=== PATIENT | male | born 1980 | race African-American/Black ===

== ENCOUNTER 2024-05-03 08:40 | Outpatient (AMB) | payer BC, SELFPAY ==
--- NOTE | 2024-05-03 08:41 | MHC.PC.OV ---
Vital Signs 05/03/24 08:56 Height 5 ft 7 in Weight 245 lb BMI 38.4 BP 114/71 Blood Pressure Location Rt brachial Position Sitting Respiration 16 Pulse 79 Pulse Source Pulse Oximeter Temp 97.8 F Temp Source Oral Pulse Oximetry (%) 98 Oxygen Delivery Method Room Air Intake Visit Reasons: Kidney Failure Intake Note: patient here for new patient visit/ Kidney failure Transmission Engineer Required: No Allergies BRITTANIE Inhibitors Allergy (Mild, Verified 05/03/24 08:47) lip swelling Tobacco use date assessed: 05/03/24 Dental Screening Dental Screen Date: 05/03/24 Did you have a dental visit in the last 12 months?: No Did you have a dental problem in the last 6 months where you did not have access to dental care?: No Was dental information given to patient?: Yes HPI HPI Comments History of Present Illness Details 43-year-old male presents to establish care. Prior PCP? - [place], [place] Last office visit/CPE/labs - About 10 years ago Acute issue(s) - HTN: He is on carvedilol 25 mg twice daily and nifedipine 90 mg daily. Followed by [facility]. 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 He receives hemodialysis Mondays, Wednesdays, and Fridays. He is on cinacalcet 120 mg every night, sodium polystyrene sulfate 30 mg on Sundays and Wednesdays, velphoro 500 mg tablet (1 tab in the morning and noon and 2 tabs in the evening), and tacrolimus 1 mg twice daily. - Nausea: Is on Zofran 4 mg daily Past Medical History - HTN - Nausea - Focal segmental glomerulosclerosis bilaterally - Chronic left lower leg edema secondary to kidney disease - Shingles Surgical History - Kidney transplant x2 (both kidneys) - Tonsillectomy Family History - Mom: HTN - Dad: Cardiovascular disease - PGM: Cardiovascular disease Social History - Nonsmoker. Does not vape. Does not drink alcohol. Smokes cannabis preroll daily - Has been making healthy dietary choices. Exercises routinely. Generally sleep well Health maintenance - Last eye exam was 8-9 years ago. Referred to ophthalmology for routine eye care - Last dental visit was 8-9 years ago; encouraged to schedule an appointment with his dentist for routine dental care. - Last tetanus vaccine was more than 10 years ago; declined vaccination - He has never had the shingles vaccines. He has history of shingles. Encouraged to get vaccinated for shingles; may get the vaccine from the local pharmacy - He notes that he is up-to-date on the influenza vaccine Specialists Dr. Reina, [facility] Care: Hemodialysis F [facility] Medical History (Updated 05/03/24 @ 09:55 by Nerissa Sparks CNP) Shingles FSGS (focal segmental glomerulosclerosis) Surgical History (Updated 05/03/24 @ 09:03 by Daniella Galicia MA) History of tonsillectomy Kidney transplant recipient Family History (Updated 05/03/24 @ 09:02 by Daniella Galicia MA) Mother High blood pressure Father Cardiovascular disease Paternal Grandmother Cardiovascular disease Social History (Updated 05/03/24 @ 09:03 by Daniella Galicia MA) Housing: Apartment Patient Tobacco Use Status: Never used Tobacco e-Cigarette/Vaping Use: Currently Using Second Hand Smoke Exposure: No Substance Use Type: Marijuana service: No Current occupational status: employed Current occupation: education Current occupational exposures/hazards: No Cognitive needs: No Hearing needs: No Vision needs: No Questionnaire PHQ-9 Over the last 2 weeks, how often have you been bothered by any of the following problems? 1. Little interest or pleasure in doing things: not at all 2. Feeling down, depressed, or hopeless: not at all 3. Trouble falling or staying asleep, or sleeping too much: not at all 4. Feeling tired or having little energy: several days 5. Poor appetite or overeating: not at all 6. Feeling bad about yourself - or that you are a failure or have let yourself or your family down: not at all 7. Trouble concentrating on things, such as reading the newspaper or watching television: not at all 8. Moving or speaking so slowly that other people could have noticed. Or the opposite - being so fidgety or restless that you have been moving around a lot more than usual: not at all 9. Thoughts that you would be better off or of hurting yourself in some way: not at all Total score: 1 Depression Screening Interpretation: Negative Depression Screening Done: Yes 00775 - PHQ-9 Billing: Yes Source: Developed by Drs. Markie Corona, Claribel Valentin, Renato Tenorio and colleagues, with an educational michelle from [employer]. Thrive Questionnaire Date Thrive assessed: 05/03/24 I am a: Patient What is your living situation today?: I have a steady place to live Within the past 12 months, did the food you bought not last and you didn't have the money to get more?: Never true Within the past 12 months, did you worry whether your food would run out before you got money to buy more?: Never true Do you have trouble paying for medicines?: No Do you have trouble getting transportation to medical appointments?: No Do you have trouble paying your heating and electricity bill?: No Do you have trouble taking care of your child, family member or friend?: No Do you have trouble with day-to-day activities such as bathing, preparing meals, shopping, managing finances, etc.?: No Are you currently unemployed and looking for a job?: No Are you interested in more education?: Yes Please select the resources that you would like help with: None Currently or been in a relationship where the following occur: No concerns reported THRIVE Score: 0 AUDIT C Alcohol Use Questionnaire (AUDIT-C) 1. How often do you have a drink containing alcohol?: Never Total Score: 0 KHANH-7 AMB Questionnaire KHANH-7 Date KHANH - 7 assessed: 05/03/24 Feeling nervous, anxious, or on edge: 0 = Not at all Not being able to stop or control worryin = Not at all Worrying too much about different things: 0 = Not at all Trouble relaxin = Not at all Being so restless that it is hard to sit still: 0 = Not at all Becoming easily annoyed or irritable: 0 = Not at all Feeling afraid as if something awful might happen: 0 = Not at all Total KHANH-7 score (0-4 normal; 5-9 mild; 10-14 moderate; 15-21 severe): 0 Source: Developed by Drs. Markie Corona, Claribel Valentin, Renato Tenorio and colleagues, with an educational michelle from [employer]. KHANH-7 Assessment Billing KHANH-7 Assessment Tool: KHANH-7 Assessment 66063 Review of Systems Const Details: Denies chills, Denies fatigue, Denies fever(s), Denies headache(s) and Denies weakness HEENT Denies change in vision, Denies dizziness, Denies headache(s), Denies hearing loss, Denies nasal congestion, Denies sinus pain, Denies sinus pressure and Denies sore throat Card Denies chest pain, Denies lightheadedness, Denies dyspnea and Denies other (palpitations) Resp Denies cough, Denies dyspnea and Denies wheezing GI Denies abdominal pain, Denies melena, Denies hematochezia, Denies change in bowel habits, Denies dyspepsia and Denies nausea Denies hematuria and Denies dysuria Musc Reports left lower leg edema, Denies abnormal gait, Denies myalgias, Denies arthralgias, Denies numbness and Denies tingling Skin/Breast Denies rash, Denies unusual bruising and Denies wounds Neuro Denies abnormal gait, Denies dizziness, Denies headache(s), Denies memory loss, Denies numbness, Denies Sensory deficit (Neuro), Denies tingling and Denies weakness Psych Denies anxiety, Denies depression and Denies memory loss Endo Denies cold intolerance, Denies fatigue, Denies heat intolerance, Denies polydipsia and Denies polyuria Chadd/Lymph Denies easy bleeding and Denies easy bruising Aller/Immun Denies wheezing Physical exam (Primary Care) Vital Signs: Last Vital Signs Temp 97.8 F 05/03/24 08:56 Pulse 79 05/03/24 08:56 Resp 16 05/03/24 08:56 BP 114/71 05/03/24 08:56 Pulse Ox 98 05/03/24 08:56 Oxygen Delivery Method Room Air 05/03/24 08:56 BMI result Body Mass Index 38.4 Tobacco/Smoking Status: Tobacco use Status Tobacco use date assessed 05/03/24 05/03/24 08:55 Patient Tobacco Use Status Never used Tobacco 05/03/24 08:55 e-Cigarette/Vaping Use Currently Using 05/03/24 08:55 PHQ-9: PHQ-9 Score PHQ-9: Total score 1 05/03/24 12:00 Depression Screening Interpretation: Negative Thrive Assessment: Date of Thrive Assessment Date Thrive assessed 05/03/24 05/03/24 08:44 Currently or been in a relationship where the following occur: No concerns reported Const Other: General: no acute distress, well developed, alert and awake Nutritional Appearance: well nourished Orientation/consciousness: patient oriented x3 [facility] Head: Yes normocephalic and Yes atraumatic Ears: hearing grossly normal bilaterally and TM's normal bilaterally General nose exam: Normal external nose present and Normal nares present Mouth: Normal oral and palatal mucosa present and moist mucous membranes Teeth and gingiva: dentition normal Throat: Yes oropharynx normal Eyes Pupils: Equal, round and reactive pupils present and Pupil accommodation reflex normal EOM: EOMs intact bilaterally Neck Neck: Yes normal visual inspection, Yes no lymphadenopathy and Yes trachea midline Thyroid: Thyroid normal Carotids: no bruits Lymphatic: no lymphadenopathy noted Chest Chest palpation & inspection: normal inspection of the chest Resp Effort & Inspection: normal respiratory effort Auscultation: clear to auscultation bilaterally Cardio Rate: regular rate Rhythm: regular rhythm Heart sounds: S1 normal heart sound present, S2 normal heart sound present, no gallops, no murmurs and no rubs Bruits: no abdominal aortic bruits and no carotid bruits GI Palpation (GI): No Abdominal aortic bruit present, Soft to palpation, nontender, No hepatosplenomegaly present and No Rebound tenderness present Auscultation: normal bowel sounds General: Yes no CVA tenderness Back/Spine/Pelvis Back: no CVA tenderness Cervical Spine: cervical ROM normal and No Cervical spine tenderness Thoracic/Lumbar Spine: thoraco-lumbar ROM normal, No pain with thoraco-lumbar ROM, No thoracic spinal tenderness and No lumbar spinal tenderness Skin General: warm and dry. Normal skin color. Normal skin turgor Lesions: no lesions Rashes: no rashes Trauma: no lacerations or abrasions Wounds: no wounds Nails: normal Neuro General: patient oriented x3, gait normal and CN's II-XI intact bilaterally Cranial nerves: Yes Equal, round and reactive pupils present Cognition (Neuro): normal cognition Gait exam (Neuro): Normal gait present Motor exam (neuro): 5/5 motor strength present throughout Sensory Exam: No Sensory deficit (Neuro) Deep tendon reflexes (DTR's): Right patellar reflex intensity grade: 2+ and Left patellar reflex intensity grade: 2+ Extrem General: Yes normal to inspection, No calf tenderness. Moderate nonpitting edema to left leg, skin is dry, warm, intact Psych Appearance: grossly normal Affect: normal affect Attitude: cooperative Thought process: Normal thought process present Coding Level of Care Code New Pt Level 3 (88594) New Pt Prev Care 40-64y(35159) Diagnoses Normal physical examination, routine Z00.00 FSGS (focal segmental glomerulosclerosis) N05.1 Hypertension I10 Eye exam, routine Z01.00 Vaccine counseling Z71.85 Obesity (BMI 30-39.9) E66.9 Edema of left lower leg R60.0 Laboratory tests ordered as part of a complete physical exam (CPE) Z00.00 Additional Codes KHANH-7 Assessment Billing - KHANH-7 Assessment Tool: KHANH-7 Assessment 65116 ([id number]) PHQ-9 - 91540 - PHQ-9 Billing: Yes ([id number]) Assessment & Plan Assessment & Plan (1) Normal physical examination, routine: Code(s): Z00.00 - Encounter for general adult medical examination without abnormal findings Category: Medical Plan: No significant functional limitation noted. Advised to perform lab work and follow-up for telehealth visit in 2-3 weeks. Return sooner with symptoms or concerns. Verbalized understanding and agreed with treatment plan. (2) FSGS (focal segmental glomerulosclerosis): Code(s): N05.1 - Unspecified nephritic syndrome with focal and segmental glomerular lesions Category: Medical Plan: History since 12 years old. 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 He receives hemodialysis Mondays, Wednesdays, and Fridays. He is on cinacalcet 120 mg every night, sodium polystyrene sulfate 30 mg on Sundays and Wednesdays, velphoro 500 mg tablet (1 tab in the morning and noon and 2 tabs in the evening), and tacrolimus 1 mg twice daily. Continue current treatment regimen. Verbalized understanding and agreed with the plan. (3) Hypertension: Code(s): I10 - Essential (primary) hypertension Category: Medical Plan: He is on carvedilol 25 mg twice daily and nifedipine 90 mg daily. Followed by [facility]. Continue current treatment regimen. (4) Eye exam, routine: Code(s): Z01.00 - Encounter for examination of eyes and vision without abnormal findings Category: Medical Plan: Last eye exam was 8-9 years ago. Referred to ophthalmology for routine eye care. (5) Vaccine counseling: Code(s): Z71.85 - Encounter for immunization safety counseling Category: Medical Plan: He has never had the shingles vaccines. He has history of shingles. Encouraged to get vaccinated for shingles; may get the vaccine from the local pharmacy. Verbalized understanding and agreed with treatment plan. (6) Obesity (BMI 30-39.9): Code(s): E66.9 - Obesity, unspecified Category: Medical Plan: He currently weighs 245 lb, BMI is 38.4. He has been making healthy lifestyle changes. Declines referral to dietitian/associate professor of kinesiology or weight management clinic at this time and notes he will continue to make lifestyle changes. Healthy diet and routine exercise encouraged. Follow-up as needed. Verbalized understanding and agreed with the plan. (7) Edema of left lower leg: Code(s): R60.0 - Localized edema Category: Medical Plan: Moderate nonpitting edema to left leg, skin is dry, warm, intact. Likely secondary to kidney disease. Continue dialysis as planned. Elevate left lower extremity to reduce edema. Follow-up with symptoms or concerns. Verbalized understanding and agreed with the treatment plan. (8) Laboratory tests ordered as part of a complete physical exam (CPE): Code(s): Z00.00 - Encounter for general adult medical examination without abnormal findings Category: Medical Plan: Fasting labs ordered as part of a complete physical exam. Advised to fast for at least 10 hours before getting labs drawn. May drink water Verbalized understanding and agreed with treatment plan. Orders: Orders Microalbumin, Random (w Creat) Today Z00.00 - Encounter for general adult medical examination without abnormal findings PSA, Ultra Sensitive Today Z00.00 - Encounter for general adult medical examination without abnormal findings TSH reflex Free T4 Today Z00.00 - Encounter for general adult medical examination without abnormal findings UA CC w/rflx Micro + Cult Today Z00.00 - Encounter for general adult medical examination without abnormal findings Vitamin D 25-OH Total Today Z00.00 - Encounter for general adult medical examination without abnormal findings Complete Blood Count Auto Diff Today Z00.00 - Encounter for general adult medical examination without abnormal findings Comprehensive Narberth. Panel Fast Today Z00.00 - Encounter for general adult medical examination without abnormal findings Lipid Panel Today Z00.00 - Encounter for general adult medical examination without abnormal findings Referrals Ophthalmology Referral Z01.00 - Encounter for examination of eyes and vision without abnormal findings
[2024-05-03 08:56] VITALS: BP 114/71; PULSE 79; RESP 16; TEMP 36.6; O2SAT 98; BMI 38.4
--- OUTSIDE RECORDS SUMMARY | 2024-05-03 08:59 | XMS_ITS | Encounter Summary ---
Author Organization [facility], Address [address] [place] [address] Phone Care Team Providers Care Car Checker Name Role Phone Ly Schultz DO Primary Care Pro vider Encounter Details Date Type Department Care Team (Late st Contact Info) Description 01/24/2022 Documentation Only [facility], [address] [place] [address] Yvonne Millard [address] [place] [address] Social History Tobacco Use Types Packs/Day Years Used Date Smoking Tobacco: Never Sex and Gender Information Value Date Recorded Sex Assigned at Not on file Legal Sex Male 10:10 AM EST Gender Identity Not on file Sexual Orientation Not on file documented as of this encounter Plan of Treatment Not on file documented as of this encounter Visit Diagnoses Not on filedocumented in this encounter Care Teams Car Checker Relationship Specialty Start Date End Date Ly Schultz DO [address] [place] [id number] PCP - General Internal Medicine 01/09/23 documented as of this encounter
--- OUTSIDE RECORDS SUMMARY | 2024-05-03 08:59 | XMS_ITS | Encounter Summary ---
Author Organization [facility], Address [address] [place] [address] Phone Care Team Providers Care Ceramics Teacher Name Role Phone Ly Schultz DO Primary Care Pro vider Reason for Visit * Reason Comments Med Refill Encounter Details Date Type Department Care Team (Late st Contact Info) Description 04/16/2020 Refill [facility] [address] [place] [phone] Madi Bradley MD [address] [place] [address] Social History Tobacco Use Types Packs/Day Years [...] on filedocumented in this encounter Care Teams Ceramics Teacher Relationship Specialty Start Date End Date Ly Schultz DO [address] [place] [address] PCP - General Internal Medicine 01/09/23 documented as of this encounter
--- OUTSIDE RECORDS SUMMARY | 2024-05-03 08:59 | XMS_ITS | Encounter Summary ---
Author Organization [facility], Address [address] [address] Phone Care Team Providers Care Reservations Sales Agent Name Role Phone Ly Schultz DO Primary Care Pro vider Encounter Details Date Type Department Care Team (Late st Contact Info) Description 12/31/2021 Documentation Only [facility], [address] [phone] Gordon Valdivia MD [address] [facility] [address] [place] [phone] Social History Tobacco Use Types Packs/Day Years Used Date Smoking Tobacco: Never Sex and Gender Information Value Date Recorded Sex Assigned at Not on file Legal Sex Male 10:10 AM EST Gender Identity Not on file Sexual Orientation Not on file COVID-19 Exposure Response Date Recorded In the last 10 days, have yo u been in contact with someone who was confirmed or suspected to have Coronavirus/COVID-19? No / Unsure 12/18/2021 8:59 AM EDT documented as of this encounter Plan of Treatment Not on file documented as of this encounter Visit Diagnoses Not on filedocumented in this encounter Care Teams Reservations Sales Agent Relationship Specialty Start Date End Date Ly Schultz DO [address] [place] [id number] PCP - General Internal Medicine 01/09/23 documented as of this encounter
--- OUTSIDE RECORDS SUMMARY | 2024-05-03 08:59 | XMS_ITS | Encounter Summary ---
Author Organization [facility], Address [address] [place] [address] Phone Care Team Providers Care Meat Slicer Name Role Phone Ly Schultz DO Primary Care Pro vider Reason for Visit * Reason Comments Med Refill Encounter Details Date Type Department Care Team (Late st Contact Info) Description 07/06/2023 Refill [facility] [address] [place] [phone] Harman Paul MD [facility] [address] [place] [phone] Social History Tobacco Use Types Packs/Day Years Used Date Smoking Tobacco: Never Alcohol Use Standard Drinks/Week Comments Never 0 (1 standard drink = 0.6 oz pur e alcohol) Sex and Gender Information Value Date Recorded Sex Assigned at Not on file Legal Sex Male 10:10 AM EST Gender Identity Not on file Sexual Orientation Not on file documented as of this encounter Plan of Treatment Not on file documented as of this encounter Visit Diagnoses Not on filedocumented in this encounter Care Teams Meat Slicer Relationship Specialty Start Date End Date Ly Schulzt DO [address] [place] [address] PCP - General Internal Medicine 01/09/23 documented as of this encounter
--- OUTSIDE RECORDS SUMMARY | 2024-05-03 08:59 | XMS_ITS | Encounter Summary ---
Author Organization [facility], Address [address] [address] Phone Care Team Providers Care Comfort Station Attendant Name Role Phone Ly Schultz DO Primary Care Pro vider Encounter Details Date Type Department Care Team (Late st Contact Info) Description 12/31/2021 Documentation Only [facility], [address] [place] [phone] Gordon Valdivia MD [address] [facility] [place] [phone] Social History Tobacco Use Types Packs/Day Years [...] on filedocumented in this encounter Care Teams Comfort Station Attendant Relationship Specialty Start Date End Date Ly Schultz DO [address] [place] [id number] PCP - General Internal Medicine 01/09/23 documented as of this encounter
--- OUTSIDE RECORDS SUMMARY | 2024-05-03 08:59 | XMS_ITS | Encounter Summary ---
Author Organization [facility], Address [address] [place] [address] Phone Care Team Providers Care News Reporter Name Role Phone Ly Schultz DO Primary Care Pro vider Encounter Details Date Type Department Care Team (Late st Contact Info) Description 11/21/2022 Documentation Only [facility], [address] [place] [phone] Dev Ramirez DO [address] [place] [phone] Social History Tobacco Use Types Packs/Day Years [...] on filedocumented in this encounter Care Teams News Reporter Relationship Specialty Start Date End Date Ly Schultz DO [address] [place] [address] PCP - General Internal Medicine 01/09/23 documented as of this encounter
--- OUTSIDE RECORDS SUMMARY | 2024-05-03 08:59 | XMS_ITS | Encounter Summary ---
Author Organization [facility], Address [address] [place] [address] Phone Care Team Providers Care Drafter Apprentice Name Role Phone Ly Schultz DO Primary Care Pro vider Reason for Visit * Reason Comments Med Refill Encounter Details Date Type Department Care Team (Late st Contact Info) Description 10/08/2022 Refill [facility] [address] [place] [address] Jaison Tineo PA Social History Tobacco Use Types Packs/Day Years [...] on filedocumented in this encounter Care Teams Drafter Apprentice Relationship Specialty Start Date End Date Ly Schultz DO [address] [place] [id number] PCP - General Internal Medicine 01/09/23 documented as of this encounter
--- OUTSIDE RECORDS SUMMARY | 2024-05-03 08:59 | XMS_ITS | Encounter Summary ---
Author Organization [facility], Address [address] [place] [address] Phone Care Team Providers Care Concrete Stone Fabricating Supervisor Name Role Phone Ly Schultz DO Primary Care Pro vider Reason for Visit * Reason Comments Med Refill Encounter Details Date Type Department Care Team (Late st Contact Info) Description 06/22/2023 [facility]ill [facility] [address] [place] [phone] Nathaniel aHley MD [address] [place] [phone] Social History Tobacco Use Types Packs/Day Years [...] on filedocumented in this encounter Care Teams Concrete Stone Fabricating Supervisor Relationship Specialty Start Date End Date Ly Schultz DO [address] [place] [address] PCP - General Internal Medicine 01/09/23 documented as of this encounter
--- OUTSIDE RECORDS SUMMARY | 2024-05-03 08:59 | XMS_ITS | Encounter Summary ---
Author Organization [facility] [place], Address [address] [address] Phone Care Team Providers Care Tail End Rider Name Role Phone Ly Schultz DO Primary Care Pro vider Encounter Details Date Type Department Care Team (Late st Contact Info) Description 01/21/2022 Documentation Only [facility] [place], [address] [facility] [place] [phone] Gordon Valdivia MD [address] [facility] [place] [phone] Social History Tobacco Use Types Packs/Day Years [...] on filedocumented in this encounter Care Teams Tail End Rider Relationship Specialty Start Date End Date Ly Schultz DO [address] [place] [address] PCP - General Internal Medicine 01/09/23 documented as of this encounter
--- OUTSIDE RECORDS SUMMARY | 2024-05-03 08:59 | XMS_ITS | Encounter Summary ---
Author Organization [facility] [place], Address [address] [address] Phone Care Team Providers Care Paraprofessional Aide Name Role Phone Ly Schultz DO Primary Care Pro vider Encounter Details Date Type Department Care Team (Late st Contact Info) Description 12/21/2021 Documentation Only [facility] [place], [address] [facility] [place] [phone] Gordon Valdivia MD [address] [facility] [place] [phone] Social History Tobacco Use Types Packs/Day Years [...] on filedocumented in this encounter Care Teams Paraprofessional Aide Relationship Specialty Start Date End Date Ly Schultz DO [address] [place] [address] PCP - General Internal Medicine 01/09/23 documented as of this encounter
--- OUTSIDE RECORDS SUMMARY | 2024-05-03 08:59 | XMS_ITS | Encounter Summary ---
Author Organization [facility] [place], Address [address] [address] Phone Care Team Providers Care Technical Services Consultant Name Role Phone Ly Schultz DO Primary Care Pro vider Reason for Visit * Reason Comments Med Refill Encounter Details Date Type Department Care Team (Late st Contact Info) Description 09/30/2019 [facility]ill [facility] [address] [place] [phone] Gordon Valdivia MD [address] [place] [phone] Social History Tobacco Use Types Packs/Day Years Used Date Smoking Tobacco: Never Assessed Sex and Gender Information Value Date Recorded Sex Assigned at Not on file Legal Sex Male 10:10 AM EST Gender Identity Not on file Sexual Orientation Not on file documented as of this encounter Plan of Treatment Not on file documented as of this encounter Visit Diagnoses Not on filedocumented in this encounter Care Teams Technical Services Consultant Relationship Specialty Start Date End Date Ly Schultz DO [address] [place] [address] PCP - General Internal Medicine 01/09/23 documented as of this encounter
--- OUTSIDE RECORDS SUMMARY | 2024-05-03 08:59 | XMS_ITS | Encounter Summary ---
Author Organization [facility] Address [address] [place] [address] Care Team Providers Care Model Maker Name Role Phone Gordon Valdivia MD Primary Care Provider [phone] Encounter Details Date Type Department Care Team (Late st Contact Info) Description 03/12/2024 Lab Requisition [facility] [address] [place] [address] Felipe Saha MD [address] [place] [address] Hyperkalemia Social History Tobacco Use Types Packs/Day Years Used Date Smoking Tobacco: Never Smokeless Tobacco: Never Alcohol Use Standard Drinks/Week Comments Yes 0 (1 standard drink = 0.6 oz pur e alcohol) Sex and Gender Information Value Date Recorded Sex Assigned at Not on file Legal Sex Male 5:22 PM EDT Gender Identity Not on file Sexual Orientation Not on file documented as of this encounter Plan of Treatment Not on file documented as of this encounter Procedures Procedure Name Priority Date/Time Associated Diagnosis Comments POTASSIUM STAT 03/12/2024 6:00 AM EST Hyperkalemia documented in this encounter Results * Potassium (03/12/2024 6:00 AM EST) Potassium 5.0 3.5 - 5.5 mmol/L LAB CHEMISTRY METHOD 03/12/2024 8:08 AM EST [facility] Blood Venous blood specimen / Unknown 03/12/2024 6:00 AM EST 03/12/2024 7:40 AM EST us Felipe Saha MD LAB BLOOD ORDERABLES Final R esult FREDRICKAlina FIGUEROA [place] ([facility]) [facility] [address] [place] [address], documented in this encounter Visit Diagnoses Diagnosis Hyperkalemia Hyperpotassemia documented in this encounter Care Teams Model Maker Relationship Specialty Start Date End Date Gordon Valdivia MD [address] [place] [address] [place] [address] PCP - General 01/30/22 documented as of this encounter
--- OUTSIDE RECORDS SUMMARY | 2024-05-03 09:00 | XMS_ITS | Encounter Summary ---
Author Organization [facility] [place], Address [address] [place] [address] Phone Care Team Providers Care Shift Commander Name Role Phone Ly Schultz DO Primary Care Pro vider Reason for Visit * Reason Comments Med Refill Encounter Details Date Type Department Care Team (Late st Contact Info) Description 12/28/2022 [facility]ill [facility] [address] [place] [address] Jaison Tineo PA Social History [...] on filedocumented in this encounter Care Teams Shift Commander Relationship Specialty Start Date End Date Ly Schultz DO [address] [place] [address] PCP - General Internal Medicine 01/09/23 documented as of this encounter
--- OUTSIDE RECORDS SUMMARY | 2024-05-03 09:00 | XMS_ITS | Encounter Summary ---
Author Organization [facility] [place], Address [address] [place] [address] Phone Care Team Providers Care Paperboard Machine Operator Name Role Phone Ly Schultz DO Primary Care Pro vider Encounter Details Date Type Department Care Team (Late st Contact Info) Description 04/19/2022 Documentation Only [facility] [place], [address] [place] [phone] Jaison Tineo PA Social History Tobacco Use [...] on filedocumented in this encounter Care Teams Paperboard Machine Operator Relationship Specialty Start Date End Date Ly Schultz DO [address] [place] [address] PCP - General Internal Medicine 01/09/23 documented as of this encounter
--- OUTSIDE RECORDS SUMMARY | 2024-05-03 09:00 | XMS_ITS | Encounter Summary ---
Author Organization [facility] [place], Address [address] [address] Phone Care Team Providers Care Twister Doffer Name Role Phone Ly Schultz DO Primary Care Pro vider Encounter Details Date Type Department Care Team (Late st Contact Info) Description 05/24/2022 Documentation Only [facility] [place], [address] [facility] [place] [phone] Gordon Valdivia MD [address] [facility] [place] [phone] Social History Tobacco Use Types Packs/Day Years [...] on filedocumented in this encounter Care Teams Twister Doffer Relationship Specialty Start Date End Date Ly Schultz DO [address] [place] [address] PCP - General Internal Medicine 01/09/23 documented as of this encounter
--- OUTSIDE RECORDS SUMMARY | 2024-05-03 09:00 | XMS_ITS | Encounter Summary ---
Author Organization [facility] [place], Address [address] [place] [address] Phone Care Team Providers Care Belt Splicer Name Role Phone Ly Schultz DO Primary Care Pro vider Reason for Visit * Reason Comments Med Refill Encounter Details Date Type Department Care Team (Late st Contact Info) Description 11/15/2022 Refill [facility] [address] [place] [address] Jaison Tineo PA Social History [...] on filedocumented in this encounter Care Teams Belt Splicer Relationship Specialty Start Date End Date Ly Schultz DO [address] [place] [address] PCP - General Internal Medicine 01/09/23 documented as of this encounter
--- OUTSIDE RECORDS SUMMARY | 2024-05-03 09:00 | XMS_ITS | Encounter Summary ---
Author Organization [facility] [place], Address [address] [place] [address] Phone Care Team Providers Care Gasoline Dragline Operator Name Role Phone Ly Schultz DO Primary Care Pro vider Reason for Visit * Reason Comments Med Refill Encounter Details Date Type Department Care Team (Late st Contact Info) Description 01/09/2023 Refill [facility] [address] [place] [phone] Nathaniel Haley MD [address] [place] [phone] Social History Tobacco Use Types Packs/Day Years [...] on filedocumented in this encounter Care Teams Gasoline Dragline Operator Relationship Specialty Start Date End Date Ly Schultz DO [address] [place] [address] PCP - General Internal Medicine 01/09/23 documented as of this encounter
--- OUTSIDE RECORDS SUMMARY | 2024-05-03 09:00 | XMS_ITS | Encounter Summary ---
Author Organization [facility] [place], Address [address] [place] [address] Phone Care Team Providers Care Mechanic Foreman Name Role Phone Ly Schultz DO Primary Care Pro vider Encounter Details Date Type Department Care Team (Late st Contact Info) Description 05/07/2022 Documentation Only [facility] [place], [address] [place] [phone] Jaison Tineo PA Social History Tobacco Use [...] on filedocumented in this encounter Care Teams Mechanic Foreman Relationship Specialty Start Date End Date Ly Schultz DO [address] [place] [address] PCP - General Internal Medicine 01/09/23 documented as of this encounter
--- OUTSIDE RECORDS SUMMARY | 2024-05-03 09:00 | XMS_ITS | Encounter Summary ---
Author Organization [facility] [place], Address [address] [address] Phone Care Team Providers Care Non Food Receiving Clerk Name Role Phone Ly Schultz DO Primary Care Pro vider Encounter Details Date Type Department Care Team (Late st Contact Info) Description 05/29/2022 Documentation Only [facility] [place], [address] [facility] [place] [phone] Gordon Valdivia MD [address] [place] [phone] Social History Tobacco Use Types Packs/Day Years [...] on filedocumented in this encounter Care Teams Non Food Receiving Clerk Relationship Specialty Start Date End Date Ly Schultz DO [address] [place] [address] PCP - General Internal Medicine 01/09/23 documented as of this encounter
--- OUTSIDE RECORDS SUMMARY | 2024-05-03 09:00 | XMS_ITS | Encounter Summary ---
Author Organization [facility] [place], Address [address] [address] Phone Care Team Providers Care Microsoft Exchange Architect Name Role Phone Ly Schultz DO Primary Care Pro vider Reason for Visit * Reason Comments Med Change Request Encounter Details Date Type Department Care Team (Late st Contact Info) Description 03/01/2022 Refill [facility] [place] [address] [facility] [place] [phone] Gordon Valdivia MD [address] [place] [address] Social History Tobacco Use Types Packs/Day Years [...] on filedocumented in this encounter Care Teams Microsoft Exchange Architect Relationship Specialty Start Date End Date Ly Schultz DO [address] [place] [address] PCP - General Internal Medicine 01/09/23 documented as of this encounter
--- OUTSIDE RECORDS SUMMARY | 2024-05-03 09:00 | XMS_ITS | Encounter Summary ---
Author Organization [facility] [place], Address [address] [place] [address] Phone Care Team Providers Care Firer Retort Name Role Phone Ly Schultz DO Primary Care Pro vider Reason for Visit * Reason Comments Med Refill Encounter Details Date Type Department Care Team (Late st Contact Info) Description 01/21/2023 Refill [facility] [address] [place] [address] Jaison Tineo PA Social History [...] on filedocumented in this encounter Care Teams Firer Retort Relationship Specialty Start Date End Date Ly Schultz DO [address] [place] [address] PCP - General Internal Medicine 01/09/23 documented as of this encounter
--- OUTSIDE RECORDS SUMMARY | 2024-05-03 09:00 | XMS_ITS | Encounter Summary ---
Author Organization [facility] [place], Address [address] [place] [address] Phone Care Team Providers Care Dial Lathe Operator Name Role Phone Ly Schultz DO Primary Care Pro vider Encounter Details Date Type Department Care Team (Late st Contact Info) Description 05/31/2022 Documentation Only [facility] [place], [address] [place] [address] Yvonne Millard [address] [place] [address] Social History Tobacco Use Types [...] on filedocumented in this encounter Care Teams Dial Lathe Operator Relationship Specialty Start Date End Date Ly Schultz DO [address] [place] [address] PCP - General Internal Medicine 01/09/23 documented as of this encounter
--- OUTSIDE RECORDS SUMMARY | 2024-05-03 09:00 | XMS_ITS | Encounter Summary ---
Author Organization [facility] [place], Address [address] [address] Phone Care Team Providers Care Construction Job Titles Name Role Phone Ly Schultz DO Primary Care Pro vider Encounter Details Date Type Department Care Team (Late st Contact Info) Description 03/18/2022 Documentation Only [facility] [place], [address] [facility] [place] [phone] Gordon Valdivia MD [address] [place] [phone] Social History Tobacco Use Types Packs/Day Years [...] on filedocumented in this encounter Care Teams Construction Job Titles Relationship Specialty Start Date End Date Ly Schultz DO [address] [place] [address] PCP - General Internal Medicine 01/09/23 documented as of this encounter
--- OUTSIDE RECORDS SUMMARY | 2024-05-03 09:00 | XMS_ITS | Encounter Summary ---
Author Organization [facility] [place], Address [address] [place] [address] Phone Care Team Providers Care Pump Rebuilder Name Role Phone Ly Schultz DO Primary Care Pro vider Reason for Visit * Reason Comments Med Refill Encounter Details Date Type Department Care Team (Late st Contact Info) Description 09/29/2023 Refill [facility] [address] [place] [phone] Harman Paul MD [facility] [address] [place] [phone] Social History Tobacco Use Types Packs/Day Years [...] on filedocumented in this encounter Care Teams Pump Rebuilder Relationship Specialty Start Date End Date Ly Schultz DO [address] [place] [address] PCP - General Internal Medicine 01/09/23 documented as of this encounter
--- OUTSIDE RECORDS SUMMARY | 2024-05-03 09:00 | XMS_ITS | Encounter Summary ---
Author Organization [facility] [place], Address [address] [place] [address] Phone Care Team Providers Care Biofuels Product Development Manager Name Role Phone Ly Schultz DO Primary Care Pro vider Encounter Details Date Type Department Care Team (Late st Contact Info) Description 03/12/2022 Documentation Only [facility] [place], [address] [place] [phone] Jaison Tineo PA Social History Tobacco Use [...] on filedocumented in this encounter Care Teams Biofuels Product Development Manager Relationship Specialty Start Date End Date Ly Schultz DO [address] [place] [address] PCP - General Internal Medicine 01/09/23 documented as of this encounter
--- OUTSIDE RECORDS SUMMARY | 2024-05-03 09:00 | XMS_ITS | Encounter Summary ---
Author Organization [facility] [place], Address [address] [address] Phone Care Team Providers Care Senior Asp Net Developer Name Role Phone Ly Schultz DO Primary Care Pro vider Reason for Visit * Reason Comments Med Refill Encounter Details Date Type Department Care Team (Late st Contact Info) Description 04/03/2022 Refill [facility] [place], [address] [facility] [place] [phone] Gordon Valdivia MD [address] [facility] [place] [phone] Social History Tobacco Use Types Packs/Day Years [...] on filedocumented in this encounter Care Teams Senior Asp Net Developer Relationship Specialty Start Date End Date Ly Schultz DO [address] [place] [address] PCP - General Internal Medicine 01/09/23 documented as of this encounter
--- OUTSIDE RECORDS SUMMARY | 2024-05-03 09:00 | XMS_ITS | Encounter Summary ---
Author Organization [facility] [place], Address [address] [place] [address] Phone Care Team Providers Care Stenciling Machine Tender Name Role Phone Ly Schultz DO Primary Care Pro vider Reason for Visit * Reason Comments Med Refill Encounter Details Date Type Department Care Team (Late st Contact Info) Description 09/29/2023 Refill [facility] [address] [place] [address] Jaison Tineo PA Social History [...] on filedocumented in this encounter Care Teams Stenciling Machine Tender Relationship Specialty Start Date End Date Ly Schultz DO [address] [place] [address] PCP - General Internal Medicine 01/09/23 documented as of this encounter
--- OUTSIDE RECORDS SUMMARY | 2024-05-03 09:00 | XMS_ITS | Clinical Summary ---
Author Organization [facility], Address [address] [place] [address] Phone Care Team Providers Care Supply Chain Business Analyst Name Role Phone Ly Schultz DO Primary Care Pro vider Allergies Active Allergy Reactions Criticality Noted Date Comments Imtiaz Inhibitors Swelling High 08/19/2019 Penicillins Medium 08/19/2019 Not sure reaction Medications cloNIDine (CATAPRES) 0.2 MG tablet TAKE 1 TABLET (0.2 MG TOTAL) BY MOUTH 3 TIMES A DAY 270 tablet 3 2 Active NIFEdipine XL (PROCARDIA XL) 60 MG 24 hr tablet Take 1 tablet (60 mg total) by mouth in the morning and 1 tablet (60 mg total) in the evening. Do not crush, chew, or split.. 180 tablet 3 3 Active carvedilol (COREG) 25 MG tablet TAKE 1 TABLET BY MOUTH IN THE MORNING AND 1 TABLET IN THE EVENING. TAKE WITH MEALS. 180 tablet 3 3 Active Sucroferric Oxyhydroxide (Velphoro) 500 MG chewable tablet Chew 1 tablet in the morning and 1 tablet at noon and 1 tablet in the evening. Chew before meals. Active acetaminophen (TYLENOL 8 HOUR) 650 MG 8 hr tablet Take 650 mg by mouth Active ondansetron (ZOFRAN) 4 MG tablet Take 1 tablet by mouth every 4 (four) hours 4 Active cinacalcet (SENSIPAR) 30 MG tablet 60 mg 4 Active sodium polystyrene sulfonate (KAYEXALATE) powder TAKE 30 GRAMS BY MOUTH 1 TIME FOR 1 DOSE 4 Active acyclovir (ZOVIRAX) 400 MG tablet Take 400 mg by mouth in the morning and 400 mg in the evening. Active aspirin (ST FABIAN) 81 MG EC tablet Take 81 mg by mouth 1 (one) time each day Active calcium carbonate EX (TUMS EX) 750 MG chewable tablet Chew 750 mg 1 (one) time each day Active omeprazole (PriLOSEC) [address] capsule Take 20 mg by mouth 1 (one) time each day Do not crush or chew. Active torsemide (DEMADEX) 100 MG tablet Take 100 mg by mouth in the morning and 100 mg before bedtime. Active tacrolimus (PROGRAF) 1 MG capsule Take 2 mg by mouth in the morning and 2 mg in the evening. 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 Iron deficiency anemia 01/28/2022 Anemia in chronic kidney disease 01/28/2022 Proteinuria 01/15/2022 Legionella pneumonia 11/22/2020 Arteriovenous fistula aneurysm 11/11/2019 Kidney replaced by transplant 08/19/2019 Dyslipidemia 08/19/2019 Personal history of immunosuppression therapy Hypertensive chronic kidney disease, malignant, with chronic kidney disease stage I through stage IV, or unspecified 08/19/2019 Essential (primary) hypertension 08/19/2019 Oligospermia 08/19/2019 Obesity Resolved Problems Problem Noted Date Diagnosed Date Resolved Date Chronic kidney disease, stage 4 (severe) 11/22/2020 12/17/2020 Encounters Date Type Department Care Team Description 04/28/2024 Orders Only [facility] [address] [address] Nathaniel Haley MD 04/21/2024 Orders Only [facility] [address] [address] Nathaniel Haley MD 04/14/2024 Orders Only [facility] [address] [address] Nathaniel Haley MD 04/09/2024 Treatment [facility] [address] [place] [address] Felipe Saha MD End stage renal disease; Dependence on renal dialysis 04/07/2024 Orders Only [facility] [address] [address] Nathaniel Haley MD 03/31/2024 Orders Only [facility] [address] [address] Nathaniel Haley MD 03/31/2024 Treatment [facility] [address] [place] [address] Rosanna Mcguire TRAPEZE PERFORMER-C 03/24/2024 Orders Only [facility] [address] [address] Nathaniel Haley MD 03/24/2024 Treatment [facility] [address] [place] [address] Rosanna Mcguire TRAPEZE PERFORMER-C 03/19/2024 Orders Only [facility] [address] [address] Nathaniel Haley MD 03/17/2024 Orders Only [facility] [address] [address] Nathaniel Haley MD 03/17/2024 Treatment [facility] [address] [place] [address] Rosanna Mcguire FNP-C 03/12/2024 Treatment [facility] [address] [place] [address] Felipe Saha MD 03/10/2024 Orders Only [facility] [address] [address] Nathaniel Haley MD 03/05/2024 Orders Only [facility] [address] [address] Nathaniel Haley MD 03/03/2024 Orders Only [facility] [address] [address] Nathaniel Haley MD 03/03/2024 Treatment [facility] [address] [place] [address] Jaison Tineo PA 03/01/2024 Orders Only [facility] [address] [address] Nathaniel Haley MD 02/27/2024 Treatment [facility] [address] [place] [address] Jaison Tineo PA 02/27/2024 Orders Only [facility] [address] [address] Nathaniel Haley MD 02/24/2024 Orders Only [facility] [address] [address] Nathaniel Haley MD 02/20/2024 Orders Only [facility] [address] [address] Nathaniel Haley MD 02/13/2024 Treatment [facility] [address] [place] [address] Felipe Saha MD 02/11/2024 Orders Only [facility] [address] [address] Nathaniel Haley MD 02/09/2024 Treatment [facility] [address] [place] [address] Jaison Tineo PA 02/06/2024 Treatment [facility] [address] [place] [address] Jaison iTneo PA 02/04/2024 Orders Only [facility] [address] [address] Nathaniel Haley MD from Last 3 Months Immunizations Name Administration Dates Next Due Influenza, MDCK, Quadrivalent, with preservative 01/07/2020 Moderna SARS-COV-2 06/22/2021 Pfizer SARS-COV-2 05/30/2020,05/09/2020 Social History Tobacco Use Types Packs/Day Years Used Date Smoking Tobacco: Never Smokeless Tobacco: Never Tobacco Cessation:Counseling Given: Not Answered Alcohol Use Standard Drinks/Week Comments Not Currently 0 (1 standard drink = 0.6 oz pur e alcohol) Sex and Gender Information Value Date Recorded Sex Assigned at Not on file Legal Sex Male 10:10 AM EST Gender Identity Not on file Sexual Orientation Not on file Last Filed Vital Signs Vital Sign Reading Time Taken Comments Blood Pressure 104/69 12/11/2023 12:14 PM EDT Pulse 72 12/11/2023 12:14 PM EDT Temperature 36.1 ??C (96.9 ??F) 12/11/2023 12:14 PM E DT Respiratory Rate 16 12/11/2023 12:14 PM EDT Oxygen Saturation 98% 12/11/2023 12:14 PM EDT Inhaled Oxygen Concentration - - Weight 109 kg (240 lb 4.8 oz) 12/11/2023 12:14 P M EDT Height 170.2 cm (5' 7 ) 12/11/2023 12:14 PM EDT Body Mass Index 37.64 12/11/2023 12:14 PM EDT Plan of Treatment Health Maintenance Due Date Last Done Comments Pneumococcal Vaccine: Pediat rics (0 to 5 Years) and At-Risk Patients (6 to 64 Years) (1 of 2 - PCV) 11/09/1987 Hepatitis B Vaccine (1 of 5 - Risk Dialysis 4-dose series) 2001 04/30/2023, 11/01/2022, 09/02/2022, Additional history exists Influenza Vaccine Completed 12/12/2023, , 01/07/2020 Procedures Procedure Name Priority Date/Time Associated Diagnosis Comments [facility] RES[facility] Routine 04/28/2024 HD KINETICS Routine 04/28/2024 POST CHEMISTRY Routine 04/28/2024 IMMUNO CHEMISTRY Routine 04/28/2024 CHEMISTRY Routine 04/28/2024 CHEMISTRY Routine 04/28/2024 HEMATOLOGY Routine 04/28/2024 CHEMISTRY Routine 04/21/2024 HEMATOLOGY Routine 04/21/2024 CHEMISTRY Routine 04/14/2024 HEMATOLOGY Routine 04/14/2024 CHEMISTRY Routine 04/07/2024 HEMATOLOGY Routine 04/07/2024 [facility] RES[facility] Routine 03/31/2024 HD KINETICS Routine 03/31/2024 IMMUNO CHEMISTRY Routine 03/31/2024 CHEMISTRY Routine 03/31/2024 POST CHEMISTRY Routine 03/31/2024 HEMATOLOGY Routine 03/31/2024 CHEMISTRY Routine 03/31/2024 HEMATOLOGY Routine 03/24/2024 CHEMISTRY Routine 03/24/2024 CHEMISTRY Routine 03/19/2024 HEMATOLOGY Routine 03/17/2024 CHEMISTRY Routine 03/10/2024 HEMATOLOGY Routine 03/10/2024 CHEMISTRY Routine 03/05/2024 CHEMISTRY Routine 03/03/2024 HEMATOLOGY Routine 03/03/2024 CHEMISTRY Routine 03/01/2024 [facility] RES[facility] Routine 02/27/2024 HD KINETICS Routine 02/27/2024 POST CHEMISTRY Routine 02/27/2024 IMMUNO CHEMISTRY Routine 02/27/2024 CHEMISTRY Routine 02/27/2024 HEMATOLOGY Routine 02/27/2024 CHEMISTRY Routine 02/27/2024 CHEMISTRY Routine 02/24/2024 HEMATOLOGY Routine 02/20/2024 CHEMISTRY Routine 02/11/2024 HEMATOLOGY Routine 02/11/2024 HEMATOLOGY Routine 02/04/2024 from Last 3 Months Results * HD KINETICS (04/28/2024) Only the most recent of3 resultswithin the time period is included. % Urea Reduction 69 65 - 80 % [facility] 04/28/2024 04/29/2024 10: 14 AM EST Narrative Resulting Agency Comment Specimen source: Plasma Nathaniel Haley MD LAB BLOOD ORDERABLES Final Re sult Performing Organization Address [facility] de Phone Number [facility] See order comments or contact performing lab Unknown, [place] * (ABNORMAL) POST CHEMISTRY (04/28/2024) Only the most recent of3 resultswithin the time period is included. BUN Post Dialysis 22(H) 6 - 19 mg/dL [facility] 04/28/2024 04/29/2024 10: 14 AM EST Narrative [facility] - 04/29/2024 Unless otherwise specified, test(s) performed at: [facility], [address] [place] [address] SHEEP FARMER: Brain Alvarado M.D. For any questions, please call customer service at FREQUENCY:MONTHLY Resulting Agency Comment Specimen source: Plasma Nathaniel Haley MD LAB BLOOD ORDERABLES Final Re sult Performing Organization Address [facility] de Phone Number [facility] See order comments or contact performing lab Unknown, [place] * IMMUNO CHEMISTRY (04/28/2024) Only the most recent of3 resultswithin the time period is included. Hep B Surface Ag Negative Negative [facility] 04/28/2024 04/29/2024 10: 10 AM EST Narrative Resulting Agency Comment Specimen source: Serum Nathaniel Haley MD LAB BLOOD ORDERABLES Final Re sult Performing Organization Address [facility] [[email or web address]] Co de Phone Number [facility] See order comments or contact performing lab Unknown, [place] * (ABNORMAL) HEMATOLOGY (04/28/2024) Only the most recent of13 resultswithin the time period is included. Hemoglobin 12.0(L) 14.0 - 18.0 g/dL [facility] Hemoglobin x 3 36(L) 42.0 - 54.0 % [facility] 04/28/2024 04/29/2024 9:3 1 AM EST Narrative [facility] - 04/29/2024 Unless otherwise specified, test(s) performed at: [facility], [address] [place] [address] SHEEP FARMER: Brain Alvarado M.D. For any questions, please call customer service at FREQUENCY:MONTHLY Resulting Agency Comment Specimen source: Blood Nathaniel Haley MD LAB BLOOD ORDERABLES Final Re sult [email or web address] See order comments or contact performing lab Unknown, [place] * (ABNORMAL) [facility] (04/28/2024) Only the most recent of17 resultswithin the time period is included. BUN 70(H) 6 - 19 mg/dL [facility] Creatinine 14.92(H) 0.60 - 1.30 mg/dL [facility] BUN/Creatinine Ratio 4.7(L) 10.0 - 20.0 [facility] Sodium 139 136 - 145 mEq/L [facility] Potassium 5.0 3.5 - 5.1 mEq/L [facility] Chloride 97 96 - 108 mEq/L [facility] Bicarbonate (CO2) 24 22 - 29 mEq/L [facility] Calcium 8.0(L) 8.4 - 10.2 mg/dL [facility] Corrected Calcium 7.8(L) 8.4 - 10.2 mg/dL [facility] Comment: Corrected Calcium is not equivalent to measured Ionized Calcium. Phosphorus 7.0(H) 2.6 - 4.5 mg/dL [facility] Calcium Phosphorus Product 56(H) 0 - 54 [facility] Calcium Phosporus Product, Cor 55(H) 0 - 54 [facility] ALT (SGPT) 8 7 - 52 U/L [facility] Albumin 4.2 3.5 - 5.2 g/dL [facility] Magnesium 2.6 1.6 - 2.6 mg/dL [facility] Ferritin 695(H) 22 - 322 ng/mL [facility] Iron 67 45 - 160 mcg/dL [facility] UIBC 174 155 - 355 mcg/dL [facility] TIBC 241 185 - 515 mcg/dL [facility] Iron Saturation (TSat) 28 20 - 55 % [facility] 04/28/2024 04/29/2024 10: 10 AM EST Narrative [facility] - 04/29/2024 Unless otherwise specified, test(s) performed at: [facility], [address] [place] [address] SHEEP FARMER: Brain Alvarado M.D. For any questions, please call customer service at FREQUENCY:MONTHLY Resulting Agency Comment Specimen source: Serum Nathaniel Haley MD LAB BLOOD ORDERABLES Final Re sult [facility] See order comments or contact performing lab Unknown, [place] * [facility] Results (04/28/2024) Only the most recent of3 resultswithin the time period is included. eKt/V (Tattersall) 1.22 [facility] eKdrt/V 1.32 [facility] PCR 71.19 [facility] WSTDKT/V 2.3 [facility] spKt/V (Daugirdas II) 1.40 [facility] eNPCR 1.17 [facility] nPCR_HD 1.26 [facility] Center spKt/V Gotch 1.52 Knowled ge Center eKt/V Gotch 1.32 Knowledg e Center 04/28/2024 04/28/2024 [facility] Ordering Provider LAB BLOOD ORDERABLES Final Result [facility] Contact Performing lab YOLANDA Knowles from Last 3 Months Insurance [facility] Care Teams Supply Chain Business Analyst Relationship Specialty Start Date End Date Ly Schultz DO [address] [place] [address] PCP - General Internal Medicine 01/09/23
--- OUTSIDE RECORDS SUMMARY | 2024-05-03 09:00 | XMS_ITS | Encounter Summary ---
Author Organization [facility], Address [address] [place] [address] Phone Care Team Providers Care Steam Generating Powerplant Mechanic Name Role Phone Ly Schultz DO Primary Care Pro vider Encounter Details Date Type Department Care Team (Late st Contact Info) Description 04/08/2022 Documentation Only [facility], [address] [place] [address] Yvonne Millard [address] [place] [address] Social History Tobacco Use Types [...] on filedocumented in this encounter Care Teams Steam Generating Powerplant Mechanic Relationship Specialty Start Date End Date Ly Schultz DO [address] [place] [address] PCP - General Internal Medicine 01/09/23 documented as of this encounter
--- OUTSIDE RECORDS SUMMARY | 2024-05-03 09:00 | XMS_ITS | Encounter Summary ---
Author Organization [facility] [place], Address [address] [address] Phone Care Team Providers Care Registrar Museum Name Role Phone Ly Schultz DO Primary Care Pro vider Reason for Visit * Reason Comments Med Change Request Encounter Details Date Type Department Care Team (Late st Contact Info) Description 05/03/2022 Refill [facility] [address] [place] [phone] Gordon Valdivia MD [address] [place] [address] Social History Tobacco Use Types [...] on filedocumented in this encounter Care Teams Registrar Museum Relationship Specialty Start Date End Date Ly Schultz DO [address] [place] [address] PCP - General Internal Medicine 01/09/23 documented as of this encounter
--- OUTSIDE RECORDS SUMMARY | 2024-05-03 09:00 | XMS_ITS | Clinical Summary ---
Author Organization [facility] Address [address] [place] [address] Care Team Providers Care Weather Reporter Name Role Phone Pcp, No Primary Care Provider Unavailabl e Social History Tobacco Use Types Packs/Day Years Used Date Smoking Tobacco: Never Assessed Sex and Gender Information Value Date Recorded Sex Assigned at Not on file Gender Identity Not on file Sexual Orientation Not on file Plan of Treatment Health Maintenance Due Date Last Done Comments Hepatitis C Virus Screening 1981 HIV Screening 1994 DTaP/Tdap/Td Vaccines (1 - Tdap) 2000 Hepatitis B Vaccines (1 of 3 - 19+ 3-dose series) 2000 Influenza Vaccine 09/25/2023 COVID-19 Vaccine (4 - 2023-2 5 season) 2023 06/22/2021, 05/30/2020, 05/09/2020 HPV Vaccines Aged Out No longer eligi ble based on patient's age to complete this topic Pneumococcal Vaccine: Pediatric (0-5 Years) and At-Risk Patients (6 to 49 Years) Aged Out No longer eligible b ased on patient's age to complete this topic Care Teams Weather Reporter Relationship Specialty Start Date End Date Pcp, No [address] [place] [address] PCP - General 03/26/21
--- OUTSIDE RECORDS SUMMARY | 2024-05-03 09:00 | XMS_ITS | Encounter Summary ---
Author Organization [facility] [place], Address [address] [address] Phone Care Team Providers Care Door Assembler Name Role Phone Ly Schultz DO Primary Care Pro vider Encounter Details Date Type Department Care Team (Late st Contact Info) Description 03/12/2022 Documentation Only [facility] [place], [address] [place] [phone] Gordon Valdivia MD [address] [place] [phone] Social History Tobacco Use Types Packs/Day Years [...] on filedocumented in this encounter Care Teams Door Assembler Relationship Specialty Start Date End Date Ly Schultz DO [address] [place] [address] PCP - General Internal Medicine 01/09/23 documented as of this encounter
--- OUTSIDE RECORDS SUMMARY | 2024-05-03 09:01 | XMS_ITS | Encounter Summary ---
Author Organization [facility] [place], Address [address] [place] [address] Phone Care Team Providers Care Junior Mechanical Engineer Name Role Phone Ly Schultz DO Primary Care Pro vider Reason for Visit * Reason Comments Med Refill Encounter Details Date Type Department Care Team (Late st Contact Info) Description 02/10/2023 Refill [facility] [address] [place] [phone] Nathaniel Haley MD [address] [place] [phone] Social History Tobacco Use Types Packs/Day Years [...] on filedocumented in this encounter Care Teams Junior Mechanical Engineer Relationship Specialty Start Date End Date Ly Schultz DO [address] [place] [address] PCP - General Internal Medicine 01/09/23 documented as of this encounter
--- OUTSIDE RECORDS SUMMARY | 2024-05-03 09:01 | XMS_ITS | Clinical Summary ---
Author Organization [address] Address [address] [place] [address] Phone Care Team Providers Care Civil Process Server Name Role Phone Gordon Valdivia MD Primary Care Provider [phone] Encounters Date Type Department Care Team Description 03/12/2024 Lab Requisition [facility] [address] [place] [phone] Felipe Saha MD Hyperkalemia 03/03/2024 Lab Requisition [facility] [address] [place] [phone] Felipe Saha MD Hyperkalemia from Last 3 Months Surgical History Surgery Date Site/Laterality Comments TONSILLECTOMY PROCEDURE:TONSILLECTOMY Medical History Medical History Date Comments Anemia DX:Anemia GERD (gastroesophageal reflux disease) DX:GERD (gastroesophageal reflux disease) Hypertension DX:Hypertension Chronic kidney disease DX:Chroni c kidney disease Proteinuria DX:Proteinuria Legionella pneumonia (CMS/HCC) D X:Legionella pneumonia (HCC) Hemodialysis AV fistula aneurysm (CMS/HCC) DX:Hemodialysis AV fistula aneurysm (HCC) Obesity DX:Obesity Dyslipidemia DX:Dyslipidemia Family History Medical History Relation Name Comments Heart attack Father Hypertension Mother Heart attack Paternal Grandfather Thyroid disease Paternal Grandmother Relation Name Status Comments Father Mother Paternal Grandfather Paternal Grandmother Social History Tobacco Use Types Packs/Day Years Used Date Smoking Tobacco: Never Smokeless Tobacco: Never Alcohol Use Standard Drinks/Week Comments Yes 0 (1 standard drink = 0.6 oz pur e alcohol) Sex and Gender Information Value Date Recorded Sex Assigned at Not on file Legal Sex Male 5:22 PM EDT Gender Identity Not on file Sexual Orientation Not on file Obstetrics History Plan of Treatment Health Maintenance Due Date Last Done Comments COVID-19 Vaccine (#1) 1986 DTaP,Tdap,and Td Vaccines (1 - Tdap) 2000 Hepatitis B Vaccines (1 of 3 - 19+ 3-dose series) 2000 Pneumococcal Vaccine: Pediat rics (0 to 5 Years) and At-Risk Patients (6 to 64 Years) (1 of 2 - PCV) 2000 Cholesterol Screening (Lipid Panel) 03/25/2023 Depression Screening 03/25/2023 HIV Screening 03/25/2023 Hepatitis C Screening 03/25/2023 Social Influencers of Health Screening 03/25/2023 Influenza Vaccine (#1) 2023 HIB Vaccines Aged Out No longer eligi ble based on patient's age to complete this topic HPV Vaccines Aged Out No longer eligi ble based on patient's age to complete this topic Hepatitis A Vaccines Aged Out No long er eligible based on patient's age to complete this topic IPV Vaccines Aged Out No longer eligi ble based on patient's age to complete this topic MMR Vaccines Aged Out No longer eligi ble based on patient's age to complete this topic Meningococcal ACWY Vaccine Aged Out N o longer eligible based on patient's age to complete this topic Meningococcal B Vacine Aged Out No lo nger eligible based on patient's age to complete this topic RSV Immunization Patients Un hodan 20 months Aged Out No longer eligible b ased on patient's age to complete this topic Varicella Vaccines Aged Out No longer eligible based on patient's age to complete this topic Procedures Procedure Name Priority Date/Time Associated Diagnosis Comments POTASSIUM STAT 03/12/2024 6:00 AM EST Hyperkalemia POTASSIUM STAT 03/03/2024 2:30 PM EST Hyperkalemia from Last 3 Months Results * Potassium (03/12/2024 6:00 AM EST) Only the most recent of2 resultswithin the time period is included. Potassium 5.0 3.5 - 5.5 mmol/L LAB CHEMISTRY METHOD 03/12/2024 8:08 AM EST [facility] Blood Venous blood specimen / Unknown 03/12/2024 6:00 AM EST 03/12/2024 7:40 AM EST Felipe Saha MD LAB BLOOD ORDERABLES Final R esult [facility] ([facility] [address] [place] [address], from Last 3 Months Insurance [facility] Care Teams Civil Process Server Relationship Specialty Start Date End Date Gordon Valdivia MD [address] [place] [address] [place] [id number] PCP - General 01/30/22
--- OUTSIDE RECORDS SUMMARY | 2024-05-03 09:01 | XMS_ITS | Encounter Summary ---
Author Organization [facility] Address [address] [place] [address] Care Team Providers Care Patch Sander Name Role Phone Gordon Valdivia MD Primary Care Provider [phone] Encounter Details Date Type Department Care Team (Late st Contact Info) Description 03/03/2024 Lab Requisition [facility] [address] [place] [address] Felipe Saha MD [address] [place] [address] Hyperkalemia Social History Tobacco Use [...] Priority Date/Time Associated Diagnosis Comments POTASSIUM STAT 03/03/2024 2:30 PM EST Hyperkalemia documented in this encounter Results * (ABNORMAL) Potassium (03/03/2024 2:30 PM EST) Potassium 6.0(H) 3.5 - 5.5 mmol/L LAB CHEMISTRY METHOD 03/03/2024 3:02 PM EST [facility] ([facility] Blood Venous blood specimen / Unknown 03/03/2024 2:30 PM EST 03/03/2024 2:31 PM EST us Felipe Saha MD LAB BLOOD ORDERABLES Final R esult FREDRICKAlina FIGUEROA [place] ([facility]) [facility] [address] [place] [address], documented in this encounter Visit Diagnoses Diagnosis Hyperkalemia Hyperpotassemia documented in this encounter Care Teams Patch Sander Relationship Specialty Start Date End Date Gordon Valdivia MD [address] [place] [address] [place] [address] PCP - General 01/30/22 documented as of this encounter
--- OUTSIDE RECORDS SUMMARY | 2024-05-03 09:01 | XMS_ITS | Encounter Summary ---
Author Organization [facility], Address [address] [address] Phone Care Team Providers Care Seo Strategist Name Role Phone Ly Schultz DO Primary Care Pro vider Encounter Details Date Type Department Care Team (Late st Contact Info) Description 11/16/2021 Documentation Only [facility], [address] [place] [phone] Gordon Valdivia MD [address] [place] [phone] Social History Tobacco Use Types Packs/Day Years [...] on filedocumented in this encounter Care Teams Seo Strategist Relationship Specialty Start Date End Date Ly Schultz DO [address] [place] [address] PCP - General Internal Medicine 01/09/23 documented as of this encounter
--- OUTSIDE RECORDS SUMMARY | 2024-05-03 09:01 | XMS_ITS | Encounter Summary ---
Author Organization [facility], Address [address] [place] [address] Phone Care Team Providers Care Marble Ceiling Installer Name Role Phone Bryceneemajanette Ly Primary Care Pro vider Encounter Details Date Type Department Care Team (Late st Contact Info) Description 03/31/2024 Orders Only [facility] [address] [place] [address] Nathaniel Haley MD [address] [place] [phone] Social History Tobacco Use Types Packs/Day Years Used Date Smoking Tobacco: Never Smokeless Tobacco: Never Alcohol Use Standard Drinks/Week Comments Not Currently [...] Procedure Name Priority Date/Time Associated Diagnosis Comments HD KINETICS Routine 03/31/2024 POST CHEMISTRY Routine 03/31/2024 IMMUNO CHEMISTRY Routine 03/31/2024 HEMATOLOGY Routine 03/31/2024 CHEMISTRY Routine 03/31/2024 CHEMISTRY Routine 03/31/2024 [facility] LAB RESULTS Routine 03/31/2024 documented in this encounter Results * [facility] Lab Results (03/31/2024) Pathologist [facility] spKt/V (Daugirdas II) 1.49 [facility] eNPCR 0.92 [facility] WSTDKT/V 2.4 [facility] nPCR_HD 0.98 [facility] eKt/V [facility] 1.38 [facility] spKt/V Got[facility] 1.58 [facility] e[facility]t/V ([place]) 1.30 [facility] eKdrt/V 1.38 [facility] PCR 55.02 [facility] 03/31/2024 03/31/2024 [facility] Ordering Provider LAB BLOOD ORDERABLES Final Result [facility] Contact Performing lab Unknown, [place] * HD KINETICS (03/31/2024) [facility] % Urea Reduction 72 65 - 80 % [facility] 03/31/2024 04/03/2024 11: 32 AM EST Narrative [facility] - 04/03/2024 Unless otherwise specified, test(s) performed at: [facility], [address] [place] [address] VACUUM TANK TENDER: Brain Alvarado M.D. For any questions, please call customer service at FREQUENCY:MONTHLY Resulting Agency Comment Specimen source: Plasma Natahniel Haley MD LAB BLOOD ORDERABLES Final Re sult [facility] See order comments or contact performing lab Unknown, [place] * IMMUNO CHEMISTRY (03/31/2024) [facility] Hep B Surface Ag Negative Negative [facility] 03/31/2024 04/03/2024 1:1 2 PM EST Narrative Resulting Agency Comment Specimen source: Serum Nathaniel Haley MD LAB BLOOD ORDERABLES Final Re sult [facility] See order comments or contact performing lab Unknown, [place] * (ABNORMAL) [facility] Chemistry (03/31/2024) BUN 53(H) 6 - 19 mg/dL [facility] Creatinine 14.84(H) 0.60 - 1.30 mg/dL [facility] BUN/Creatinine Ratio 3.6(L) 10.0 - 20.0 [facility] Sodium 138 136 - 145 mEq/L [facility] Potassium 4.8 3.5 - 5.1 mEq/L [facility] Chloride 93(L) 96 - 108 mEq/L [facility] Bicarbonate (CO2) 28 22 - 29 mEq/L [facility] Calcium 8.4 8.4 - 10.2 mg/dL [facility] Corrected Calcium 8.1(L) 8.4 - 10.2 mg/dL [facility] Comment: Corrected Calcium is not equivalent to measured Ionized Calcium. Phosphorus 5.7(H) 2.6 - 4.5 mg/dL [facility] Calcium Phosphorus Product 48 0 - 54 [facility] Calcium Phosporus Product, Cor 46 0 - 54 [facility] ALT (SGPT) 6(L) 7 - 52 U/L [facility] Albumin 4.4 3.5 - 5.2 g/dL [facility] Magnesium 2.8(H) 1.6 - 2.6 mg/dL [facility] Ferritin 376(H) 22 - 322 ng/mL [facility] Iron 59 45 - 160 mcg/dL [facility] UIBC 201 155 - 355 mcg/dL [facility] TIBC 260 185 - 515 mcg/dL [facility] Iron Saturation (TSat) 23 20 - 55 % [facility] 03/31/2024 04/03/2024 1:1 2 PM EST Narrative [facility] - 04/03/2024 Unless otherwise specified, test(s) performed at: [facility], [address] [place] [address] VACUUM TANK TENDER: Brain Alvarado M.D. For any questions, please call customer service at FREQUENCY:MONTHLY Resulting Agency Comment Specimen source: Serum Nathaniel Haley MD LAB BLOOD ORDERABLES Final Re sult Performing Organization Address [facility] de Phone Number [facility] See order comments or contact performing lab Unknown, [place] * POST CHEMISTRY (03/31/2024) Pathologist [facility] BUN Post Dialysis 15 6 - 19 mg/dL [facility] 03/31/2024 04/03/2024 11: 32 AM EST Narrative [facility] - 04/03/2024 Unless otherwise specified, test(s) performed at: [facility], [address] [place] [address] VACUUM TANK TENDER: Brain Alvarado M.D. For any questions, please call customer service at FREQUENCY:MONTHLY Resulting Agency Comment Specimen source: Plasma Nathaniel Haley MD LAB BLOOD ORDERABLES Final Re [facility] Performing Organization Address [facility] de Phone Number [facility] See order comments or contact performing lab Unknown, [place] * (ABNORMAL) HEMATOLOGY (03/31/2024) [facility] Hemoglobin 11.5(L) 14.0 - 18.0 g/dL [facility] Hemoglobin x 3 34.5(L) 42.0 - 54.0 % [facility] 03/31/2024 04/03/2024 11: 59 AM EST Narrative [facility] - 04/03/2024 Unless otherwise specified, test(s) performed at: [facility], [address] [place] [address] VACUUM TANK TENDER: Brain Alvarado M.D. For any questions, please call customer service at FREQUENCY:MONTHLY Resulting Agency Comment Specimen source: Blood Nathaniel Haley MD LAB BLOOD ORDERABLES Final Re sult Performing Organization Address [facility] de Phone Number [facility] See order comments or contact performing lab Unknown, [place] * (ABNORMAL) [facility] Chemistry (03/31/2024) Pathologist [facility] PTH 1,117(H) 16 - 80 pg/mL [facility] 03/31/2024 04/03/2024 11: 39 AM EST Narrative [facility] - 04/03/2024 Unless otherwise specified, test(s) performed at: [facility], [address] [place] [address] VACUUM TANK TENDER: Brain Alvarado M.D. For any questions, please call customer service at FREQUENCY:MONTHLY Resulting Agency Comment Specimen source: Plasma us Nathaniel Haley MD LAB BLOOD ORDERABLES Final Re sult [employer] See order comments or contact performing lab Unknown, [place] documented in this encounter Visit Diagnoses Not on filedocumented in this encounter Care Teams Marble Ceiling Installer Relationship Specialty Start Date End Date Ly Schultz DO [address] [place] [address] PCP - General Internal Medicine 01/09/23 documented as of this encounter
--- OUTSIDE RECORDS SUMMARY | 2024-05-03 09:01 | XMS_ITS | Encounter Summary ---
Author Organization [facility], Address [address] [place] [address] Phone Care Team Providers Care Hand Ii Thermal Cutter Name Role Phone BryceneemasusieLy stephens Primary Care Pro vider Encounter Details Date Type Department Care Team (Late st Contact Info) Description 04/14/2024 Orders Only [facility] [address] [place] [address] Nathaniel Haley MD [address] [place] [phone] Social History Tobacco Use Types Packs/Day Years [...] Procedure Name Priority Date/Time Associated Diagnosis Comments HEMATOLOGY Routine 04/14/2024 CHEMISTRY Routine 04/14/2024 documented in this encounter Results * (ABNORMAL) [facility] (04/14/2024) Potassium 5.6(H) 3.5 - 5.1 mEq/L [facility] 04/14/2024 04/15/2024 9:4 3 AM EST Narrative [facility] - 04/15/2024 Unless otherwise specified, test(s) performed at: [facility], [address] [place] [address] SOW FARM BARN TECHNICIAN: Brain Alvarado M.D. For any questions, please call customer service at FREQUENCY:OTHER Resulting Agency Comment Specimen source: Serum Nathaniel Haley MD LAB BLOOD ORDERABLES Final Re sult Performing Organization Address [facility] Co de Phone Number [facility] See order comments or contact performing lab Unknown, [place] * (ABNORMAL) HEMATOLOGY (04/14/2024) Hemoglobin 11.0(L) 14.0 - 18.0 g/dL [facility] Hemoglobin x 3 33(L) 42.0 - 54.0 % [facility] 04/14/2024 04/15/2024 9:2 8 AM EST Narrative [facility] - 04/15/2024 Unless otherwise specified, test(s) performed at: [facility], [address] [place] [address] SOW FARM BARN TECHNICIAN: Brain Alvarado M.D. For any questions, please call customer service at FREQUENCY:OTHER Resulting Agency Comment Specimen source: Blood Nathaniel Haley MD LAB BLOOD ORDERABLES Final Re sult Performing Organization Address [facility] Co de Phone Number [employer] See order comments or contact performing lab Unknown, [place] documented in this encounter Visit Diagnoses Not on filedocumented in this encounter Care Teams Hand Ii Thermal Cutter Relationship Specialty Start Date End Date Ly Schultz DO [address] [place] [address] PCP - General Internal Medicine 01/09/23 documented as of this encounter
--- OUTSIDE RECORDS SUMMARY | 2024-05-03 09:01 | XMS_ITS | Encounter Summary ---
Author Organization [facility], Address [address] [place] [address] Phone Care Team Providers Care Sales Representative Advertising Name Role Phone Ly Schultz DO Primary Care Pro vider Reason for Visit * Reason Comments Med Refill Encounter Details Date Type Department Care Team (Late st Contact Info) Description 03/15/2023 Refill [facility] [address] [place] [phone] Harman Paul MD [facility] [address] [place] [phone] Social History Tobacco Use Types Packs/Day Years [...] on filedocumented in this encounter Care Teams Sales Representative Advertising Relationship Specialty Start Date End Date Ly Schultz DO [address] [place] [address] PCP - General Internal Medicine 01/09/23 documented as of this encounter
--- OUTSIDE RECORDS SUMMARY | 2024-05-03 09:01 | XMS_ITS | Encounter Summary ---
Author Organization [facility], Address [address] [place] [address] Phone Care Team Providers Care Spike Machine Operator Name Role Phone BryceneemasusieLy stephens Primary Care Pro vider Encounter Details Date Type Department Care Team (Late st Contact Info) Description 04/09/2024 Treatment [facility], [address] [place] [phone] Nolvia Milligan MD [address] [place] [address] [place] [address] End stage renal disease; Dependence on renal dialysis Social History Tobacco Use Types Packs/Day Years [...] on file documented as of this encounter Miscellaneous Notes * Dialysis Note - oNlvia Milligan MD - 04/09/2024 12:00 AM EST Patient: Otis Medina : 1980 Note Type: Dialysis Rounds-Comp Service Date: 04/09/2024 This patient was personally seen for a complete visit as part of routine monthly dialysis care for end stage renal disease. Attending Municipal Maintenance Worker: JOSAFAT ROGERS MD Dialysis Location: [facility] Schedule: Shift: 2 OVERVIEW COMMENTS: [place] [facility]. Missed several appointments per Dr. Wallace ([place] [facility] [place] Will need to discuss MGRS maintenance prior to renal transplantation workup. BP trending lower will hold clonidine 0.1 mg bid. Hyperkalemia ongoing will start on kayexelate 30g weekly on Sundays. Asked him to restrict dietary potassium. Had abdominal imaging which will be discussed with outpatient scrub nurse. Hyperkalemia will increase kayexelate frequency to twice weekly and recommended better compliance with dietary potassium restriction. HOME MEDICATIONS [facility] Outpatient Medications acyclovir 400 mg tablet Take 1 tablet by mouth twice a day. aspirin 81 mg tablet,delayed release (DR/EC) Take 1 tablet by mouth once a day. calcium acetate 667 mg tablet Take 1 tablet by mouth three times a day. [Take 2 hours after meals as a CA supplement.] carvedilol 25 mg tablet Take 1 tablet by mouth twice a day. nifedipine 30 mg tablet extended release Take 3 tablet by mouth once a day. [(90mg)] omeprazole 20 mg capsule,delayed release(DR/EC) Take 1 capsule by mouth once a day. ondansetron HCl 4 mg tablet Take 1 tablet by mouth every four hours as needed. [for nausea] prednisone 5 mg tablet Take 1 tablet by mouth once a day. Sensipar 60 mg tablet Take 1 tablet by mouth once a day. [with lunch] sodium polystyrene sulfonate powder Take 30 gram by mouth once a week. [For hyperkalemia] tacrolimus 1 mg capsule Take 2 capsule by mouth twice a day. torsemide 100 mg tablet Take 1 tablet by mouth twice a day. Velphoro 500 mg tablet,chewable Take 2 tablet by mouth three times a day with meals. [facility] Allerg[facility] Allergen: BRITTANIE INHIBITORS Reaction: Swelling Severity: Severe DIALYSIS PRESCRIPTION Treatment Data Treatment Date: 04/23/2024 started at: 2:30 PM Dialysate / Machine Temp (prescribed): 36.0*C Dialysate / Machine Temp (actual): 35.9*C BFR (prescribed): 450 BFR (average delivered): 450 DFR (prescribed): Manual 700 DFR (average delivered): 760 Prescribed Time: 04:00 Actual Time: 04:00 EDW (kg): 108.5 Dialyzer: 180NRe Optiflux Dialysate: 2.0 K, 2.50 Ca, 1.0 Mg, 100 Dextrose ([id number]) Sodium: 138 Bicarb: 36 Pre Dialysis Vitals Pre BP Sit: 169/115 Pre Wt (kg): 113.4 EDW Deviation (kg): 4.9 Temp: 98.0*F Post Dialysis Vitals Post BP Sit: 112/97 Post Wt (kg): 109.5 TREATMENT MEDICATIONS ORDERS Heparin Sodium (Porcine) 1,000 Units/mL Systemic 7000 units IVP Every Treatment 09/10/2023 - 09/08/2024 Heparin Sodium (Porcine) 1,000 Units/mL Systemic 1000 units IVP Every Treatment 06/02/2023 - 05/31/2024 Vitamin D (Calcitriol) Oral 0.75 mcg ORAL 3X Week 04/14/2024 - 04/13/2025 BP AND FLUID ASSESSMENT Post BP Sit 112/97 - 04/23/2024 130/83 - 04/21/2024 126/87 - 04/19/2024 Post Wt (kg) 109.5 - 04/23/2024 109.8 - 04/21/2024 110.9 - 04/19/2024 EDW (kg) 108.5 - 04/23/2024 108.5 - 04/21/2024 108.5 - 04/19/2024 Deviation (kg) 1.0 - 04/23/2024 1.3 - 04/21/2024 2.4 - 04/19/2024 ADEQUACY ASSESSMENT Missed Treatments 0 - Last 30 days 1 - Last 60 days Most recently missed on 03/12/2024 spKt/V (Daugirdas II) 1.49 (03/31/24) 1.49 (02/27/24) 1.38 (01/28/24) eKdrt/V 1.38 (03/31/24) 1.43 (02/27/24) 1.30 (01/28/24) % Urea Reduction 72 (03/31/24) 71 (02/27/24) 68 (01/28/24) BUN 53 (03/31/24) 80 (02/27/24) 69 (01/28/24) BUN Post Dialysis 15 (03/31/24) 23 (02/27/24) 22 (01/28/24) Creatinine 14.84 (03/31/24) 16.83 (02/27/24) 15.98 (01/28/24) Bicarbonate (CO2) 28 (03/31/24) 22 (02/27/24) 25 (01/28/24) Sodium 138 (03/31/24) 139 (02/27/24) 134 (01/28/24) ACCESS ASSESSMENT [employer] Synthetic - Standard (PTFE) Left Upper Arm Active (In Use) - 07/17/2022 Placed - Unknown Access Flow > 2000 (04/16/24) > 2000 (04/12/24) 1911 (04/07/24) ANEMIA ASSESSMENT Hemoglobin 12.2 (04/21/24) 11.0 (04/14/24) 11.6 (04/07/24) Iron Saturation (TSat) 23 (03/31/24) 30 (02/27/24) 25 (01/28/24) Ferritin 376 (03/31/24) 892 (02/27/24) 416 (01/28/24) Iron 59 (03/31/24) 80 (02/27/24) 67 (01/28/24) TIBC 260 (03/31/24) 266 (02/27/24) 273 (01/28/24) Reticulocyte Hemoglobin 33.8 (02/27/24) 34.4 (11/26/23) 34.3 (08/27/23) MCV 104 (02/27/24) 99 (11/26/23) 110 (08/27/23) BMM ASSESSMENT Calcium 8.4 03/31/24 8.3 02/27/24 8.8 01/28/24 Corrected Calcium 8.1 03/31/24 7.9 02/27/24 8.5 01/28/24 Phosphorus 5.7 03/31/24 6.3 02/27/24 6.0 01/28/24 Calcium Phosphorus Product 48 03/31/24 52 02/27/24 53 01/28/24 PTH 1,117 03/31/24 668 02/27/24 505 01/28/24 Vitamin D, 25-OH, Total 21.2 11/26/23 Magnesium 2.8 03/31/24 3.0 02/27/24 2.9 01/28/24 Alkaline Phosphatase 82 02/27/24 78 11/26/23 64 08/27/23 Aluminum <5 11/26/23 NUTRITION ASSESSMENT Albumin 4.4 03/31/24 4.5 02/27/24 4.4 01/28/24 Potassium 5.2 04/21/24 5.6 04/14/24 5.2 04/07/24 eNPCR 0.92 03/31/24 1.41 02/27/24 1.13 01/28/24 ADDITIONAL LABS WBC 7.00 (02/27/24) 5.87 (11/26/23) 5.45 (08/27/23) Cholesterol 223 (11/26/23) 191 (05/28/23) HDL 47 (11/26/23) 41 (05/28/23) LDL Calculated 127 (11/26/23) 105 (05/28/23) Triglycerides 243 (11/26/23) 223 (05/28/23) Hepatitis B Surface Ab 92 (11/26/23) 132 (11/03/23) <10 (05/28/23) ADDITIONAL COMMENT COMMENTS: Patient is stable Medications reviewed Physical Exam Vital signs: reviewed Lungs: clear Edema: none Impression 1. Adequacy: KT/V was assessed and the dialysis prescription was adjusted as needed. 2. Access: Dialysis access function is acceptable. 3. Hypertension: Blood pressure control and volume status are at goal. 4. Anemia: Labs reviewed and adjustments to regimen made according to anemia management protocol. 5. Mineral Bone Disease: Labs reviewed. Diet and medication adjustment as per protocol. 6. Nutrition: Labs reviewed. Dietary adjustments made in conjunction with molded goods inspector trimmer. 7. Transplant: The patient is being evaluated for a kidney transplant. 03/12/24 [place] [facility] [place] [place] Signed by: NOLVIA MILLIGAN MD on 04/23/2024 at 11:56:05 PM documented in this encounter Plan of Treatment Not on file documented as of this encounter Visit Diagnoses Diagnosis End stage renal disease Dependence on renal dialysis documented in this encounter Care Teams Spike Machine Operator Relationship Specialty Start Date End Date Ly Schultz DO [address] [place] [address] PCP - General Internal Medicine 01/09/23 documented as of this encounter
--- OUTSIDE RECORDS SUMMARY | 2024-05-03 09:01 | XMS_ITS | Encounter Summary ---
Author Organization [facility], Address [address] [place] [address] Phone Care Team Providers Care Resource Analyst Name Role Phone Ly Schultz DO Primary Care Pro vider Encounter Details Date Type Department Care Team (Late st Contact Info) Description 08/31/2021 Documentation Only [facility], [address] [place] [address] [place], [place] [address] [place] [address] Social History Tobacco Use Types [...] on filedocumented in this encounter Care Teams Resource Analyst Relationship Specialty Start Date End Date Ly Schultz DO [address] [place] [address] PCP - General Internal Medicine 01/09/23 documented as of this encounter
--- OUTSIDE RECORDS SUMMARY | 2024-05-03 09:01 | XMS_ITS | Encounter Summary ---
Author Organization [facility], Address [address] [place] [address] Phone Care Team Providers Care Day Care Home Provider Name Role Phone Ly Schultz DO Primary Care Pro vider Reason for Visit * Reason Comments Med Refill Encounter Details Date Type Department Care Team (Late st Contact Info) Description 07/31/2020 Refill [facility] [address] [place] [address] Jaison Tineo PA Social History Tobacco Use Types Packs/Day Years Used Date Smoking Tobacco: Never Sex and Gender Information Value Date Recorded Sex Assigned at Not on file Legal Sex Male 10:10 AM EST Gender Identity Not on file Sexual Orientation Not on file COVID-19 Exposure Response Date Recorded In the last month, have you been in contact with someone who was confirmed or suspected to have Coronavirus / COVID-19? Unable to assess 07/11/2020 8:19 AM EDT documented as of this encounter Plan of Treatment Not on file documented as of this encounter Visit Diagnoses Not on filedocumented in this encounter Care Teams Day Care Home Provider Relationship Specialty Start Date End Date Ly Schultz DO [address] [place] [address] PCP - General Internal Medicine 01/09/23 documented as of this encounter
--- OUTSIDE RECORDS SUMMARY | 2024-05-03 09:01 | XMS_ITS | Encounter Summary ---
Author Organization [facility], Address [address] [place] [address] Phone Care Team Providers Care Acting Manager Name Role Phone Ly Schultz DO Primary Care Pro vider Reason for Visit * Reason Comments Med Refill Encounter Details Date Type Department Care Team (Late st Contact Info) Description 01/26/2023 Refill [facility] [address] [place] [phone] Nathaniel Haley MD [address] [place] [phone] Social History Tobacco Use Types Packs/Day Years [...] on filedocumented in this encounter Care Teams Acting Manager Relationship Specialty Start Date End Date Ly Schultz DO [address] [place] [address] PCP - General Internal Medicine 01/09/23 documented as of this encounter
--- OUTSIDE RECORDS SUMMARY | 2024-05-03 09:01 | XMS_ITS | Encounter Summary ---
Author Organization [facility], Address [address] [place] [address] Phone Care Team Providers Care Automobile Upholsterer Name Role Phone Ly Schultz DO Primary Care Pro vider Reason for Visit * Reason Comments Med Refill Encounter Details Date Type Department Care Team (Late st Contact Info) Description 01/22/2024 Refill [facility], [address] [place] [phone] Dev Ramirez DO [address] [place] [phone] Social History Tobacco Use Types Packs/Day Years [...] on filedocumented in this encounter Care Teams Automobile Upholsterer Relationship Specialty Start Date End Date Ly Schultz DO [address] [place] [address] PCP - General Internal Medicine 01/09/23 documented as of this encounter
--- OUTSIDE RECORDS SUMMARY | 2024-05-03 09:01 | XMS_ITS | Encounter Summary ---
Author Organization [facility] [place], Address [address] [place] [address] Phone Care Team Providers Care Linesperson Name Role Phone Ly Schultz DO Primary Care Pro vider Reason for Visit * Reason Comments Med Refill Encounter Details Date Type Department Care Team (Late st Contact Info) Description 11/11/2020 [facility]ill [facility] [address] [place] [address] Jaison Tineo PA Social History Tobacco Use [...] on filedocumented in this encounter Care Teams Linesperson Relationship Specialty Start Date End Date Ly Schultz DO [address] [place] [address] PCP - General Internal Medicine 01/09/23 documented as of this encounter
--- OUTSIDE RECORDS SUMMARY | 2024-05-03 09:01 | XMS_ITS | Encounter Summary ---
Author Organization [facility] [place], Address [address] [place] [address] Phone Care Team Providers Care Rn Manager Name Role Phone Ly Schultz DO Primary Care Pro vider Encounter Details Date Type Department Care Team (Late st Contact Info) Description 03/25/2023 Documentation Only [facility] [place], [address] [place] [phone] Dev Ramirez DO [address] [place] [phone] Social History Tobacco Use Types Packs/Day Years [...] on filedocumented in this encounter Care Teams Rn Manager Relationship Specialty Start Date End Date Ly Schultz DO [address] [place] [address] PCP - General Internal Medicine 01/09/23 documented as of this encounter
--- OUTSIDE RECORDS SUMMARY | 2024-05-03 09:01 | XMS_ITS | Encounter Summary ---
Author Organization [facility] [place], Address [address] [place] [address] Phone Care Team Providers Care Cobol Programmer Name Role Phone BryceneemasusieLy stephens Primary Care Pro vider Encounter Details Date Type Department Care Team (Late st Contact Info) Description 04/07/2024 Orders Only [facility] [address] [place] [address] Nathaniel Haley MD [address] [place] [phone] Social History Tobacco Use Types Packs/Day Years [...] Priority Date/Time Associated Diagnosis Comments HEMATOLOGY Routine 04/07/2024 CHEMISTRY Routine 04/07/2024 documented in this encounter Results * (ABNORMAL) [facility] (04/07/2024) Potassium 5.2(H) 3.5 - 5.1 mEq/L [facility] 04/07/2024 04/08/2024 9:1 7 AM EST Narrative [facility] - 04/08/2024 Unless otherwise specified, test(s) performed at: [facility], [address] [place] [address] PAEDIATRIC PHYSIOTHERAPIST: Brain Alvarado M.D. For any questions, please call customer service at FREQUENCY:OTHER Resulting Agency Comment Specimen source: Serum Nathaniel Haley MD LAB BLOOD ORDERABLES Final Re sult Performing Organization Address [facility] Co de Phone Number [facility] See order comments or contact performing lab Unknown, [place] * (ABNORMAL) HEMATOLOGY (04/07/2024) Hemoglobin 11.6(L) 14.0 - 18.0 g/dL [facility] Hemoglobin x 3 34.8(L) 42.0 - 54.0 % [facility] 04/07/2024 04/08/2024 8:2 7 AM EST Narrative [facility] - 04/08/2024 Unless otherwise specified, test(s) performed at: [facility], [address] [place] [address] PAEDIATRIC PHYSIOTHERAPIST: Brain Alvarado M.D. For any questions, please call customer service at FREQUENCY:OTHER Resulting Agency Comment Specimen source: Blood Nathaniel Haley MD LAB BLOOD ORDERABLES Final Re sult Performing Organization Address [facility] Co de Phone Number [facility] See order comments or contact performing lab Unknown, [place] documented in this encounter Visit Diagnoses Not on filedocumented in this encounter Care Teams Cobol Programmer Relationship Specialty Start Date End Date Ly Schultz DO [address] [place] [address] PCP - General Internal Medicine 01/09/23 documented as of this encounter
--- OUTSIDE RECORDS SUMMARY | 2024-05-03 09:01 | XMS_ITS | Encounter Summary ---
Author Organization [facility] [place], Address [address] [place] [address] Phone Care Team Providers Care Distribution A Class Lineman Name Role Phone BryceJoni Ly Primary Care Pro vider Encounter Details Date Type Department Care Team (Late st Contact Info) Description 04/28/2024 Orders Only [facility] [address] [place] [address] Nathaniel Haley MD [address] [place] [phone] Social History Tobacco Use Types Packs/Day Years [...] Date/Time Associated Diagnosis Comments HD KINETICS Routine 04/28/2024 POST CHEMISTRY Routine 04/28/2024 IMMUNO CHEMISTRY Routine 04/28/2024 HEMATOLOGY Routine 04/28/2024 CHEMISTRY Routine 04/28/2024 CHEMISTRY Routine 04/28/2024 [facility] RESULTS Routine 04/28/2024 documented in this encounter Results * [facility] Lab Results (04/28/2024) Pathologist [facility] eKt/V (Tattersall) 1.22 [facility] eKdrt/V 1.32 [facility] PCR 71.19 [facility] WSTDKT/V 2.3 [facility] spKt/V (Daugirdas II) 1.40 [facility] eNPCR 1.17 [facility] nPCR_HD 1.26 [facility] spKt/V Gotch 1.52 [facility] ge Center eKt/V Gotch 1.32 [facility] e Center 04/28/2024 04/28/2024 [facility] [place]ing Provider LAB BLOOD ORDERABLES Final Result [facility] Contact Performing lab Unknown, [place] * HD KINETICS (04/28/2024) Pathologist [facility] % Urea Reduction 69 65 - 80 % [facility] 04/28/2024 04/29/2024 10: 14 AM EST Narrative Resulting Agency Comment Specimen source: Plasma Nathaniel Haley MD LAB BLOOD ORDERABLES Final Re sult [facility] See order comments or contact performing lab Unknown, [place] * (ABNORMAL) POST CHEMISTRY (04/28/2024) Pathologist [facility] BUN Post Dialysis 22(H) 6 - 19 mg/dL [facility] 04/28/2024 04/29/2024 10: 14 AM EST Narrative [facility] - 04/29/2024 Unless otherwise specified, test(s) performed at: [facility], [address] [place] [address] WATCH AND CLOCK REPAIR CLERK: Brain Alvarado M.D. For any questions, please call customer service at FREQUENCY:MONTHLY Resulting Agency Comment Specimen source: Plasma Nathaniel Haley MD LAB BLOOD ORDERABLES Final Re sult [facility] See order comments or contact performing lab Unknown, [place] * IMMUNO CHEMISTRY (04/28/2024) Pathologist [facility] Hep B Surface Ag Negative Negative [facility] 04/28/2024 04/29/2024 10: 10 AM EST Narrative Resulting Agency Comment Specimen source: Serum Nathaniel Haley MD LAB BLOOD ORDERABLES Final Re sult [facility] See order comments or contact performing lab Unknown, [place] * (ABNORMAL) [facility] (04/28/2024) Pathologist [facility] BUN 70(H) 6 - 19 mg/dL [facility] [...] 04/29/2024 Unless otherwise specified, test(s) performed at: [facility], [address] [place], [place] [id number] WATCH AND CLOCK REPAIR CLERK: Brain Alvarado M.D. For any questions, please call customer service at FREQUENCY:MONTHLY Resulting Agency Comment Specimen source: Serum Nathaniel Haley MD LAB BLOOD ORDERABLES Final Re sult Performing Organization Address [facility] de Phone Number [email or web address] See order comments or contact performing lab Unknown, [place] * (ABNORMAL) [facility] (04/28/2024) PTH 312(H) 16 - 80 pg/mL [facility] 04/28/2024 04/29/2024 9:3 3 AM EST Narrative [facility] - 04/29/2024 Unless otherwise specified, test(s) performed at: [facility], [address] [place] [address] WATCH AND CLOCK REPAIR CLERK: Brain Alvarado M.D. For any questions, please call customer service at FREQUENCY:MONTHLY Resulting Agency Comment Specimen source: Plasma Nathaniel Haley MD LAB BLOOD ORDERABLES Final Re sult Performing Organization Address [facility] de Phone Number [facility] See order comments or contact performing lab Unknown, [place] * (ABNORMAL) HEMATOLOGY (04/28/2024) Hemoglobin 12.0(L) 14.0 - 18.0 g/dL [facility] Hemoglobin x 3 36(L) 42.0 - 54.0 % [facility] 04/28/2024 04/29/2024 9:3 1 AM EST Narrative [facility] - 04/29/2024 Unless otherwise specified, test(s) performed at: [facility], [address] [place], [place] [phone] WATCH AND CLOCK REPAIR CLERK: Brain Alvarado M.D. For any questions, please call customer service at FREQUENCY:MONTHLY Resulting Agency Comment Specimen source: Blood us Nathaniel Haley MD LAB BLOOD ORDERABLES Final Re sult [facility] See order comments or contact performing lab Unknown, [place] documented in this encounter Visit Diagnoses Not on filedocumented in this encounter Care Teams Distribution A Class Lineman Relationship Specialty Start Date End Date Ly Schultz DO [address] [place] [address] PCP - General Internal Medicine 01/09/23 documented as of this encounter
--- OUTSIDE RECORDS SUMMARY | 2024-05-03 09:01 | XMS_ITS | Encounter Summary ---
Author Organization [facility] [place], Address [address] [place] [address] Phone Care Team Providers Care Microsoft Bi Architect Name Role Phone BryceneemasusieLy stephens Primary Care Pro vider Encounter Details Date Type Department Care Team (Late st Contact Info) Description 04/21/2024 Orders Only [facility] [address] [place] [address] Nathaniel Haley MD [address] [place] [phone] Social History Tobacco Use Types Packs/Day Years [...] Priority Date/Time Associated Diagnosis Comments HEMATOLOGY Routine 04/21/2024 CHEMISTRY Routine 04/21/2024 documented in this encounter Results * (ABNORMAL) [facility] (04/21/2024) Potassium 5.2(H) 3.5 - 5.1 mEq/L [facility] 04/21/2024 04/22/2024 8:0 9 AM EST Narrative [facility] - 04/22/2024 Unless otherwise specified, test(s) performed at: [facility], [address] [place] [address] BLADE WORKER: Brain Alvarado M.D. For any questions, please call customer service at FREQUENCY:OTHER Resulting Agency Comment Specimen source: Serum Nathaniel Haley MD LAB BLOOD ORDERABLES Final Re sult Performing Organization Address [facility] Co de Phone Number [facility] See order comments or contact performing lab Unknown, [place] * (ABNORMAL) HEMATOLOGY (04/21/2024) Hemoglobin 12.2(L) 14.0 - 18.0 g/dL [facility] Hemoglobin x 3 36.6(L) 42.0 - 54.0 % [facility] 04/21/2024 04/22/2024 8:2 1 AM EST Narrative [facility] - 04/22/2024 Unless otherwise specified, test(s) performed at: [facility], [address] [place] [address] BLADE WORKER: Brain Alvarado M.D. For any questions, please call customer service at FREQUENCY:OTHER Resulting Agency Comment Specimen source: Blood Nathaniel Haley MD LAB BLOOD ORDERABLES Final Re sult Performing Organization Address [facility] Co de Phone Number [employer] [facility] See order comments or contact performing lab Unknown, [place] documented in this encounter Visit Diagnoses Not on filedocumented in this encounter Care Teams Microsoft Bi Architect Relationship Specialty Start Date End Date Ly Schultz DO [address] [place] [address] PCP - General Internal Medicine 01/09/23 documented as of this encounter
--- OUTSIDE RECORDS SUMMARY | 2024-05-03 09:01 | XMS_ITS | Encounter Summary ---
Author Organization [facility] [place], Address [address] [place] [address] Phone Care Team Providers Care Supervisor Carton And Can Supply Name Role Phone Ly Schultz DO Primary Care Pro vider Reason for Visit * Reason Comments Med Refill Encounter Details Date Type Department Care Team (Late st Contact Info) Description 05/06/2021 Refill [facility] [address] [place] [address] Jaison Tineo PA Kidney replaced by transplant; Personal history of immunosuppression therapy Social History Tobacco Use Types Packs/Day Years Used Date Smoking Tobacco: Never Sex and Gender Information Value Date Recorded Sex Assigned at Not on file Legal Sex Male 10:10 AM EST Gender Identity Not on file Sexual Orientation Not on file documented as of this encounter Plan of Treatment Not on file documented as of this encounter Visit Diagnoses Diagnosis Kidney replaced by transplant Personal history of immunosuppression therapy documented in this encounter Care Teams Supervisor Carton And Can Supply Relationship Specialty Start Date End Date Ly Schultz DO [address] [place] [address] PCP - General Internal Medicine 01/09/23 documented as of this encounter
--- OUTSIDE RECORDS SUMMARY | 2024-05-03 09:01 | XMS_ITS | Clinical Summary ---
Author Organization [facility] Address [address] [place] [address] Care Team Providers Care Superintendent Meter Tests Name Role Phone Gordon Valdivia MD Primary Care Provider + Allergies Active Allergy Reactions Criticality Noted Date Comments Imtiaz Inhibitors Other (See Comments) 02/07/2022 LIP SWELLING Medications Medication Sig Dispensed Refills Start Date End Date Status aspirin 81 MG EC tablet Take 1 tablet (81 mg total) by mouth. 0 12/21/2021 Active carvedilol (COREG) 25 MG tablet Take 1 tablet (25 mg total) by mouth 2 (two) times a day. 0 01/30/2022 Active cloNIDine (CATAPRES) 0.2 MG tablet TAKE 1 TABLET (0.2 MG TOTAL) BY MOUTH 3 TIMES A DAY 0 01/25/2022 Active predniSONE (DELTASONE) tablet 10 mg TAKE 8 TABLETS BY MOUTH 1 TIME EACH DAY 0 02/01/2022 Active simvastatin (ZOCOR) tablet 20 mg TAKE 1 TABLET BY MOUTH EVERY EVENING FOR ELEVATED CHOLESTEROL 0 08/14/2021 Active sirolimus (RAPAMUNE) 1 MG tablet TAKE 6 TABLETS (6 MG TOTAL) BY MOUTH IN THE MORNING. 0 01/31/2022 Active Active Problems Problem Noted Date Diagnosed Date Anemia in chronic renal disease 02/07/2022 Family History Medical History Relation Name Comments Heart attack Father Hypertension Mother Heart attack Paternal Grandfather Thyroid disease Paternal Grandmother Relation Name Status Comments Father Mother Paternal Grandfather Paternal Grandmother Social History Tobacco Use Types Packs/Day Years Used Date Smoking Tobacco: Never Passive Smoke Exposure: Never Smokeless Tobacco: Never Tobacco Cessation:Counseling Given: Not Answered Alcohol Use Standard Drinks/Week Comments Yes 0 (1 standard drink = 0.6 oz pur e alcohol) SOCIALLY Sex and Gender Information Value Date Recorded Sex Assigned at Male 01/30/2022 11:04 AM EST Gender Identity Not on file Sexual Orientation Not on file Job Start Date Occupation Industry Not on file Not on file Not on file Last Filed Vital Signs Vital Sign Reading Time Taken Comments Blood Pressure 158/91 02/14/2022 2:37 PM EST Pulse 74 02/14/2022 2:37 PM EST Temperature 36.7 ??C (98.1 ??F) 02/14/2022 2:37 PM ES T Respiratory Rate 16 02/07/2022 2:24 PM EST Oxygen Saturation 97% 02/14/2022 2:37 PM EST Inhaled Oxygen Concentration - - Weight - - Height - - Body Mass Index - - Plan of Treatment Health Maintenance Due Date Last Done Comments Hepatitis B Vaccines (1 of 3 - 3-dose series) 1981 Hepatitis C Screening 1981 Pneumococcal Vaccine (1 of 2 - PCV) 11/09/1987 Depression Screening 1993 Preventative Health Evaluation 11/09/1999 DTap / Tdap / Td (1 - Tdap) 2000 COVID-19 Vaccine (3 - Pfizer risk series) 06/27/2020 05/30/2020, 05/09/2020 Influenza Vaccine (#1) 2023 01/07/2020 RSV Ped < 20 months Aged Out No longe r eligible based on patient's age to complete this topic Care Teams Superintendent Meter Tests Relationship Specialty Start Date End Date Gordon Valdivia MD [address] [place] [address] [place] [address] PCP - General Nephrology 01/30/22
--- OUTSIDE RECORDS SUMMARY | 2024-05-03 09:01 | XMS_ITS | Encounter Summary ---
Author Organization [facility] [place], Address [address] [place] [address] Phone Care Team Providers Care Lace Tearing Supervisor Name Role Phone Ly Schultz DO Primary Care Pro vider Encounter Details Date Type Department Care Team (Late st Contact Info) Description 01/19/2024 Documentation Only [facility] [place], [address] [place] [address] Hetal [place], [place] [address] [place] [address] Social History Tobacco Use Types [...] on filedocumented in this encounter Care Teams Lace Tearing Supervisor Relationship Specialty Start Date End Date Ly Schultz DO [address] [place] [address] PCP - General Internal Medicine 01/09/23 documented as of this encounter
--- OUTSIDE RECORDS SUMMARY | 2024-05-03 09:01 | XMS_ITS | Encounter Summary ---
Author Organization [facility] [place], Address [address] [place] [address] Phone Care Team Providers Care Mechanical Planner Name Role Phone Ly Schultz DO Primary Care Pro vider Reason for Visit * Reason Comments Med Refill Encounter Details Date Type Department Care Team (Late st Contact Info) Description 02/23/2023 Refill [facility] [address] [place] [phone] Nathaniel Haley MD [address] [place] [place] [phone] Social History Tobacco Use Types Packs/Day Years [...] on filedocumented in this encounter Care Teams Mechanical Planner Relationship Specialty Start Date End Date Ly Schultz DO [address] [place] [address] PCP - General Internal Medicine 01/09/23 documented as of this encounter
== END 2024-05-03 09:36 | disposition home or self-care (01) ==
PROVIDERS: PCP Nurse Practitioner Family; Visit Provider Nurse Practitioner Family
DX: Z00.00 Encounter for general adult medical examination without abnormal findings (principal); N05.1 Unspecified nephritic syndrome with focal and segmental glomerular lesions; E66.9 Obesity, unspecified; Z68.38 Body mass index [BMI] 38.0-38.9, adult; I10 Essential (primary) hypertension; Z71.85 Encounter for immunization safety counseling; R60.0 Localized edema

== ENCOUNTER → 2024-05-03 08:40 | Outpatient (BNVA) | payer BC, SELFPAY | PROVIDERS: PCP Nurse Practitioner Family; Visit Provider Nurse Practitioner Family | DX: Z00.00 Encounter for general adult medical examination without abnormal findings (principal); I10 Essential (primary) hypertension; N05.1 Unspecified nephritic syndrome with focal and segmental glomerular lesions; E66.9 Obesity, unspecified; R60.0 Localized edema; Z68.38 Body mass index [BMI] 38.0-38.9, adult; Z71.85 Encounter for immunization safety counseling | CPT/HCPCS: 96127 ==

== ENCOUNTER 2024-07-13 11:56 | Outpatient (REF) | payer BC, SELFPAY ==
--- OUTSIDE RECORDS SUMMARY | 2024-07-13 13:08 | XMS_ITS | Encounter Summary ---
Author Organization [facility] [place], Address PO [facility] [address] [place] [address] Phone Care Team Providers Care Watch And Clock Repair Clerk Name Role Phone Nerissa Sparks CNP Primary Care Provider [phone] Encounter Details Date Type Department Care Team (Late st Contact Info) Description 12/31/2021 Documentation Only [facility] [place], [address] [facility] [place] [address] Gordon Valdivia MD [address] [facility] [address] [place] [phone] Social History Tobacco Use Types Packs/Day Years [...] on filedocumented in this encounter Care Teams Watch And Clock Repair Clerk Relationship Specialty Start Date End Date Nerissa Sparks CNP [address] [place], [place] [phone] PCP - General 07/06/24 documented as of this encounter
--- OUTSIDE RECORDS SUMMARY | 2024-07-13 13:08 | XMS_ITS | Encounter Summary ---
Author Organization [facility] [place], Address [address] [place] [address] Phone Care Team Providers Care Plumbing Engineering Draftsperson Name Role Phone Nerissa Sparks CNP Primary Care Provider [phone] Encounter Details Date Type Department Care Team (Late st Contact Info) Description 05/07/2022 Documentation Only [facility] [place], [address] [place] [phone] Jaison Tineo PA Social History Tobacco Use [...] on filedocumented in this encounter Care Teams Plumbing Engineering Draftsperson Relationship Specialty Start Date End Date Nerissa Sparks CNP [address] [place], [place] [phone] PCP - General 07/06/24 documented as of this encounter
--- OUTSIDE RECORDS SUMMARY | 2024-07-13 13:08 | XMS_ITS | Encounter Summary ---
Author Organization [facility] [place], Address [address] [address] Phone Care Team Providers Care Hotel Reservationist Name Role Phone Nerissa Sparks CNP Primary Care Provider [phone] Reason for Visit * Reason Comments Med Change Request Encounter Details Date Type Department Care Team (Late st Contact Info) Description 05/03/2022 Refill [facility] [address] [place] [address] Gordon Valdivia MD [address] [place] [phone] Social History Tobacco Use Types Packs/Day Years [...] on filedocumented in this encounter Care Teams Hotel Reservationist Relationship Specialty Start Date End Date Nerissa Sparks CNP [address] [place] [address] PCP - General 07/06/24 documented as of this encounter
--- OUTSIDE RECORDS SUMMARY | 2024-07-13 13:08 | XMS_ITS | Encounter Summary ---
Author Organization [facility], Address [address] [place] [address] Phone Care Team Providers Care Drying Machine Operator Name Role Phone Nerissa Sparks SYLVIA Primary Care Provider [phone] Encounter Details Date Type Department Care Team (Late st Contact Info) Description 07/07/2024 Orders Only [facility] [address] [place] [address] Nathaniel Haley MD [address] [place] [address] Social History Tobacco Use Types Packs/Day Years [...] Priority Date/Time Associated Diagnosis Comments HEMATOLOGY Routine 07/07/2024 CHEMISTRY Routine 07/07/2024 documented in this encounter Results * [facility] (07/07/2024) Potassium 4.7 3.5 - 5.1 mEq/L [facility] 07/07/2024 07/08/2024 9:4 0 AM EDT Narrative [facility] - 07/08/2024 Unless otherwise specified, test(s) performed at: [facility], [address] [place] [id number] SENIOUR INSIGHT MANAGER: Brain Alvarado M.D. For any questions, please call customer service at FREQUENCY:OTHER Resulting Agency Comment Specimen source: Serum Nathaniel Haley MD LAB BLOOD ORDERABLES Final Re sult Performing Organization Address [facility] de Phone Number [facility] See order comments or contact performing lab Unknown, [place] * (ABNORMAL) HEMATOLOGY (07/07/2024) Hemoglobin 12.2(L) 14.0 - 18.0 g/dL [facility] Hemoglobin x 3 36.6(L) 42.0 - 54.0 % [facility] 07/07/2024 07/08/2024 9:2 8 AM EDT Narrative [facility] - 07/08/2024 Unless otherwise specified, test(s) performed at: [facility], [address] [place] [address] SENIOUR INSIGHT MANAGER: Brain Alvarado M.D. For any questions, please call customer service at FREQUENCY:OTHER Resulting Agency Comment Specimen source: Blood Nathaniel Haley MD LAB BLOOD ORDERABLES Final Re sult Performing Organization Address [facility] de Phone Number [facility] See order comments or contact performing lab Unknown, [place] documented in this encounter Visit Diagnoses Not on filedocumented in this encounter Care Teams Drying Machine Operator Relationship Specialty Start Date End Date Nerissa Sparks CNP [address] [place] [address] PCP - General 07/06/24 documented as of this encounter
--- OUTSIDE RECORDS SUMMARY | 2024-07-13 13:08 | XMS_ITS | Clinical Summary ---
Author Organization [facility] Address [address] [place] [address] Care Team Providers Care Silver Designer Name Role Phone Pcp, No Primary Care Provider Unavailabl e Social History Tobacco Use Types Packs/Day Years Used Date Smoking Tobacco: Never Assessed Sex and Gender Information Value Date Recorded Sex Assigned at Not on file Legal Sex Male 11:59 AM EST Gender Identity Not on file Sexual Orientation Not on file Plan of Treatment Health Maintenance Due Date Last Done Comments Hepatitis C Virus Screening 1981 HIV Screening 1994 DTaP/Tdap/Td Vaccines (1 - Tdap) 2000 Hepatitis B Vaccines (1 of 3 - 19+ 3-dose series) 2000 COVID-19 Vaccine ( - 2023-2 5 season) 2023 06/22/2021, 05/30/2020, 05/09/2020 Influenza Vaccine 09/24/2024 HPV Vaccines Aged Out No longer eligi ble based on patient's age to complete this topic Pneumococcal Vaccine: Pediatric (0-5 Years) and At-Risk Patients (6 to 49 Years) Aged Out No longer eligible b ased on patient's age to complete this topic Insurance [facility] Care Teams Silver Designer Relationship Specialty Start Date End Date Pcp, No [address] [place] [address] PCP - General 03/26/21
--- OUTSIDE RECORDS SUMMARY | 2024-07-13 13:08 | XMS_ITS | Encounter Summary ---
Author Organization [facility], Address [address] [facility] [address] [place] [address] Phone Care Team Providers Care Surveillance Camera Technician Name Role Phone Nerissa Sparks CNP Primary Care Provider Encounter Details Date Type Department Care Team (Late st Contact Info) Description 03/18/2022 Documentation Only [facility] [place], [address] [place] [address] Gordon Valdivia MD [address] [facility] [address] [place] [phone] Social History Tobacco Use Types Packs/Day Years [...] on filedocumented in this encounter Care Teams Surveillance Camera Technician Relationship Specialty Start Date End Date Nerissa Sparks CNP [address] [place] [address] PCP - General 07/06/24 documented as of this encounter
--- OUTSIDE RECORDS SUMMARY | 2024-07-13 13:08 | XMS_ITS | Encounter Summary ---
Author Organization [facility], Address [address] [place] [address] Phone Care Team Providers Care Shrub Planter Name Role Phone Nerissa Sparks CNP Primary Care Provider [phone] Encounter Details Date Type Department Care Team (Late st Contact Info) Description 01/24/2022 Documentation Only [facility] [place], [address] [place] [address] Yvonne Millard [address] [place] [phone] Social History Tobacco Use Types Packs/Day Years [...] on filedocumented in this encounter Care Teams Shrub Planter Relationship Specialty Start Date End Date Nerissa Sparks CNP [address] [place] [address] PCP - General 07/06/24 documented as of this encounter
--- OUTSIDE RECORDS SUMMARY | 2024-07-13 13:08 | XMS_ITS | Encounter Summary ---
Author Organization [facility] [place], Address [address] [facility] [address] [place] [address] Phone Care Team Providers Care Neonatologist Name Role Phone Nerissa Sparks CNP Primary Care Provider [phone] Encounter Details Date Type Department Care Team (Late st Contact Info) Description 12/21/2021 Documentation Only [facility] [place], [address] [facility] [place] [address] Gordon Valdivia MD [address] [facility] [place] [address] Social History Tobacco Use Types Packs/Day Years [...] on filedocumented in this encounter Care Teams Neonatologist Relationship Specialty Start Date End Date Nerissa Sparks CNP [address] [place], [place] [phone] PCP - General 07/06/24 documented as of this encounter
--- OUTSIDE RECORDS SUMMARY | 2024-07-13 13:08 | XMS_ITS | Encounter Summary ---
Author Organization [facility], Address [address] [place] [address] Phone Care Team Providers Care Principal Systems Engineer Name Role Phone Nerissa Sparks CNP Primary Care Provider [phone] Reason for Visit * Reason Comments Med Refill Encounter Details Date Type Department Care Team (Late st Contact Info) Description 06/22/2023 Refill [facility] [address] [place] [phone] Nathaniel Haley MD [address] [place] [address] Social History Tobacco Use Types Packs/Day Years [...] on filedocumented in this encounter Care Teams Principal Systems Engineer Relationship Specialty Start Date End Date Nerissa Sparks CNP [address] [place] [id number] PCP - General 07/06/24 documented as of this encounter
--- OUTSIDE RECORDS SUMMARY | 2024-07-13 13:08 | XMS_ITS | Encounter Summary ---
Author Organization [facility] [place], Address [address] [place] [address] Phone Care Team Providers Care Construction Coordinator Name Role Phone Nerissa Sparks CNP Primary Care Provider [phone] Encounter Details Date Type Department Care Team (Late st Contact Info) Description 04/19/2022 Documentation Only [facility] [place], [address] [place] [phone] Jaison Tineo PA Social History Tobacco Use [...] filedocumented in this encounter Care Teams Construction Coordinator Relationship Specialty Start Date End Date Nerissa Sparks CNP [address] [place], [place] [phone] PCP - General 07/06/24 documented as of this encounter
--- OUTSIDE RECORDS SUMMARY | 2024-07-13 13:08 | XMS_ITS | Encounter Summary ---
Author Organization [facility], Address PO [facility] [address] [place] [address] Phone Care Team Providers Care Coal Drier Operator Name Role Phone Nerissa Sparks CNP Primary Care Provider [phone] Encounter Details Date Type Department Care Team (Late st Contact Info) Description 03/12/2022 Documentation Only [facility], [address] [place] [address] Gordon Valdivia MD [address] [facility] [address] [place] [address] Social History Tobacco Use Types Packs/Day Years [...] on filedocumented in this encounter Care Teams Coal Drier Operator Relationship Specialty Start Date End Date Nerissa Sparks CNP [address] [place] [address] PCP - General 07/06/24 documented as of this encounter
--- OUTSIDE RECORDS SUMMARY | 2024-07-13 13:08 | XMS_ITS | Encounter Summary ---
Author Organization [facility], Address [address] [facility] [address] [place] [address] Phone Care Team Providers Care Waxer Operator Name Role Phone Nerissa Sparks CNP Primary Care Provider [phone] Encounter Details Date Type Department Care Team (Late st Contact Info) Description 01/21/2022 Documentation Only [facility], [address] [facility] [address] Gordon Valdivia MD [address] [facility] [place] [address] Social History Tobacco Use Types Packs/Day Years [...] on filedocumented in this encounter Care Teams Waxer Operator Relationship Specialty Start Date End Date Nerissa Sparks CNP [address] [place] [address] PCP - General 07/06/24 documented as of this encounter
--- OUTSIDE RECORDS SUMMARY | 2024-07-13 13:08 | XMS_ITS | Encounter Summary ---
Author Organization [facility], Address [address] [place] [address] Phone Care Team Providers Care Checker Cashier Name Role Phone Nerissa Sparks CNP Primary Care Provider [phone] Encounter Details Date Type Department Care Team (Late st Contact Info) Description 04/08/2022 Documentation Only [facility], [address] [place] [address] Yvonne Millard [address] [place] [phone] Social History Tobacco Use Types Packs/Day Years [...] on filedocumented in this encounter Care Teams Checker Cashier Relationship Specialty Start Date End Date Nerissa Sparks CNP [address] [place] [address] PCP - General 07/06/24 documented as of this encounter
--- OUTSIDE RECORDS SUMMARY | 2024-07-13 13:08 | XMS_ITS | Encounter Summary ---
Author Organization [facility], Address [address] [place] [address] Phone Care Team Providers Care Science Intern Name Role Phone Nerissa Sparks SYLVIA Primary Care Provider [phone] Encounter Details Date Type Department Care Team (Late st Contact Info) Description 07/09/2024 Treatment [facility], [address] [place] [phone] Felipe Milligan MD [facility] [place] [address] End stage renal disease; Dependence on renal [...] encounter Miscellaneous Notes * Dialysis Note - Felipe Milligan MD - 07/09/2024 12:00 AM EDT Patient: Otis Medina : 1980 Note Type: Dialysis Rounds-Comp Service Date: 07/09/2024 This patient was personally seen for a complete visit as part of routine monthly dialysis care for end stage renal disease. Attending Clay Pigeon Setter: JOSAFAT ROGERS Dialysis Location: [facility] Schedule: Shift: 2 OVERVIEW COMMENTS: Following with hematology/oncology at [facility]. Missed several appointments per Dr. Wallace (hematology at [facility]). Will need to discuss MGRS maintenance prior to renal transplantation workup. BP trending lower will hold clonidine 0.1 mg bid. Hyperkalemia ongoing will start on kayexelate 30g weekly on Sundays. Asked him to restrict dietary potassium. Had abdominal imaging which will be discussed with outpatient urgent care technician. Hyperkalemia will increase kayexelate frequency to twice weekly and recommended better compliance with dietary potassium restriction. HOME MEDICATIONS [facility] Outpatient Medications acyclovir 400 mg tablet [...] by mouth once a week. [For hyperkalemia] Sucroferric Oxyhydroxide 500 mg chewable tablet Take 2 Tablet By Mouth Three times a day With Meals. [Take 2 before each meal. Can break or chew.] tacrolimus 1 mg capsule Take 2 capsule by mouth twice a day. torsemide 100 mg tablet Take 1 tablet by mouth twice a day. [facility] Allergies Allergen: BRITTANIE INHIBITORS Reaction: Swelling Severity: Severe DIALYSIS PRESCRIPTION Treatment Data Treatment Date: 07/09/2024 started at: 1:40 PM Dialysate / Machine Temp (prescribed): 36.0*C Dialysate / Machine Temp (actual): 35.8*C BFR (prescribed): 450 BFR (actual): 450 DFR (prescribed): Manual 700 DFR (actual): 700 Prescribed Time: 04:00 EDW (kg): 109.0 Dialyzer: 180NRe Optiflux Dialysate: 2.0 K, 2.50 Ca, 1.0 Mg, 100 Dextrose ([id number]) Sodium: 138 Bicarb: 36 Pre Dialysis Vitals Pre BP Sit: 134/74 Pre Wt (kg): 112.9 EDW Deviation (kg): 3.9 Temp: 97.8*F Current Dialysis Vitals BP Sit: 106/57 AP/UNDERWATER HUNTER: -- Pulse: 73 TREATMENT MEDICATIONS ORDERS Heparin Sodium (Porcine) 1,000 Units/mL Systemic 1000 units IVP Every Treatment 06/02/2024 - 06/01/2025 Heparin Sodium (Porcine) 1,000 Units/mL Systemic 7000 units IVP Every Treatment 09/10/2023 - 09/08/2024 Vitamin D (Calcitriol) Oral 0.75 mcg ORAL 3X Week 04/14/2024 - 04/13/2025 BP AND FLUID ASSESSMENT Post BP Sit 113/74 - 07/07/2024 114/68 - 07/05/2024 131/69 - 07/02/2024 Post Wt (kg) 108.7 - 07/07/2024 110.2 - 07/05/2024 109.6 - 07/02/2024 EDW (kg) 109.0 - 07/07/2024 109.0 - 07/05/2024 109.0 - 07/02/2024 Deviation (kg) -0.3 - 07/07/2024 1.2 - 07/05/2024 0.6 - 07/02/2024 ADEQUACY ASSESSMENT spKt/V (Daugirdas II) 1.37 (06/30/24) 1.40 (05/26/24) 1.40 (04/28/24) eKdrt/V 1.28 (06/30/24) 1.32 (05/26/24) 1.32 (04/28/24) % Urea Reduction 68 (06/30/24) 69 (05/26/24) 69 (04/28/24) BUN 81 (06/30/24) 74 (05/26/24) 70 (04/28/24) BUN Post Dialysis 26 (06/30/24) 23 (05/26/24) 22 (04/28/24) Creatinine 17.51 (06/30/24) 17.71 (05/26/24) 14.92 (04/28/24) Bicarbonate (CO2) 20 (06/30/24) 22 (05/26/24) 24 (04/28/24) Sodium 137 (06/30/24) 137 (05/26/24) 139 (04/28/24) Missed Treatments 0 - Last 30 days 0 - Last 60 days ACCESS ASSESSMENT AVGraft Synthetic - Standard (PTFE) Left Upper Arm Active (In Use) - 07/17/2022 Placed - Unknown Access Flow 1417 (07/09/24) 1714 (07/07/24) 1911 (06/02/24) ANEMIA ASSESSMENT Hemoglobin 12.2 (07/07/24) 12.6 (06/30/24) 12.5 (06/23/24) Iron Saturation (TSat) 26 (06/30/24) 22 (05/26/24) 28 (04/28/24) Ferritin 436 (06/30/24) 427 (05/26/24) 695 (04/28/24) Iron 68 (06/30/24) 49 (05/26/24) 67 (04/28/24) TIBC 258 (06/30/24) 220 (05/26/24) 241 (04/28/24) Reticulocyte Hemoglobin 33.4 (05/26/24) 33.8 (02/27/24) 34.4 (11/26/23) MCV 100 (05/26/24) 104 (02/27/24) 99 (11/26/23) BMM ASSESSMENT Calcium 8.0 5/7/25 7.6 05/26/24 8.0 04/28/24 Corrected Calcium 7.8 06/30/24 7.5 05/26/24 7.8 04/28/24 Phosphorus 7.6 06/30/24 8.2 05/26/24 7.0 04/28/24 Calcium Phosphorus Product 61 06/30/24 62 05/26/24 56 04/28/24 PTH 1,147 06/30/24 699 05/26/24 312 04/28/24 Vitamin D, 25-OH, Total 21.2 11/26/23 Magnesium 2.9 06/30/24 2.8 05/26/24 2.6 04/28/24 Alkaline Phosphatase 75 05/26/24 82 02/27/24 78 11/26/23 Aluminum <5 11/26/23 NUTRITION ASSESSMENT Albumin 4.2 06/30/24 4.1 05/26/24 4.2 04/28/24 Potassium 4.7 07/07/24 5.8 06/30/24 5.0 06/23/24 eNPCR 1.27 06/30/24 1.20 05/26/24 1.17 04/28/24 ADDITIONAL LABS WBC 6.17 (05/26/24) 7.00 (02/27/24) 5.87 (11/26/23) Cholesterol 211 (05/26/24) 223 (11/26/23) HDL 41 (05/26/24) 47 (11/26/23) LDL Calculated 143 (05/26/24) 127 (11/26/23) Triglycerides 133 (05/26/24) 243 (11/26/23) Hepatitis B Surface Ab 46 (05/26/24) 92 (11/26/23) 132 (11/03/23) ADDITIONAL COMMENT COMMENTS: Patient is stable Medications [...] reviewed. Dietary adjustments made in conjunction with python web developer. 7. Transplant: The patient is being evaluated for a kidney transplant. 03/12/24 dialyzed at [facility] after declot procedure 05/07: stable, same HD Rx, working on getting back on transplant list 05/28 stable same HD Rx 07/09: stable, same HD Rx Signed by: FELIPE MILLIGAN MD on 07/09/2024 at 02:43:27 PM Transcribed by: FELIPE MILLIGAN MD on 07/09/2024 at 02:43:27 PM documented in this encounter Plan of Treatment Not on file documented as of this encounter Visit Diagnoses Diagnosis End stage renal disease Dependence on renal dialysis documented in this encounter Care Teams Science Intern Relationship Specialty Start Date End Date Nerissa Sparks CNP [address] [place] [address] PCP - General 07/06/24 documented as of this encounter
--- OUTSIDE RECORDS SUMMARY | 2024-07-13 13:08 | XMS_ITS | Encounter Summary ---
Author Organization [facility], Address PO [facility] [address] [place] [address] Phone Care Team Providers Care Tool Lathe Operator Name Role Phone Nerissa Saprks CNP Primary Care Provider [phone] Encounter Details Date Type Department Care Team (Late st Contact Info) Description 12/31/2021 Documentation Only [facility], [address] [facility] [place] [address] Gordon Valdivia MD [address] [facility] [place] [address] Social History Tobacco Use Types Packs/Day Years [...] on filedocumented in this encounter Care Teams Tool Lathe Operator Relationship Specialty Start Date End Date Nerissa Sparks CNP [address] [place], [place] [phone] PCP - General 07/06/24 documented as of this encounter
--- OUTSIDE RECORDS SUMMARY | 2024-07-13 13:08 | XMS_ITS | Encounter Summary ---
Author Organization [facility] [place], Address [address] [address] Phone Care Team Providers Care Senior Product Consultant Name Role Phone Nerissa Sparks CNP Primary Care Provider [phone] Reason for Visit * Reason Comments Med Refill Encounter Details Date Type Department Care Team (Late st Contact Info) Description 04/03/2022 Refill [facility] [place], [address] [place] [address] Gordon Valdivia MD [address] [place] [phone] Social History Tobacco Use Types Packs/Day Years [...] filedocumented in this encounter Care Teams Senior Product Consultant Relationship Specialty Start Date End Date Nerissa Sparks CNP [address] [place] [address] PCP - General 07/06/24 documented as of this encounter
--- OUTSIDE RECORDS SUMMARY | 2024-07-13 13:08 | XMS_ITS | Encounter Summary ---
Author Organization [facility] [place], Address [address] [place] [address] Phone Care Team Providers Care Corporate Learning Consultant Name Role Phone Nerissa Sparks CNP Primary Care Provider [phone] Reason for Visit * Reason Comments Med Refill Encounter Details Date Type Department Care Team (Late st Contact Info) Description 04/16/2020 Refill [facility] [address] [place] [address] Madi Bradley MD [address] [place] [address] Social History Tobacco Use Types Packs/Day Years [...] on filedocumented in this encounter Care Teams Corporate Learning Consultant Relationship Specialty Start Date End Date Nerissa Sparks CNP [address] [place] [phone] PCP - General 07/06/24 documented as of this encounter
--- OUTSIDE RECORDS SUMMARY | 2024-07-13 13:08 | XMS_ITS | Encounter Summary ---
Author Organization [facility], Address [address] [place] [address] Phone Care Team Providers Care Surtass Analyst Name Role Phone Nerissa Sparks CNP Primary Care Provider Reason for Visit * Reason Comments Med Refill Encounter Details Date Type Department Care Team (Late st Contact Info) Description 11/15/2022 Refill [facility] [address] [place] [address] Jaison Tineo PA Social History Tobacco Use [...] on filedocumented in this encounter Care Teams Surtass Analyst Relationship Specialty Start Date End Date Nerissa Sparks CNP [address] [place] [address] PCP - General 07/06/24 documented as of this encounter
--- OUTSIDE RECORDS SUMMARY | 2024-07-13 13:08 | XMS_ITS | Encounter Summary ---
Author Organization [facility] [place], Address [address] [address] Phone Care Team Providers Care Information Systems Architect Name Role Phone Nerissa Sparks CNP Primary Care Provider [phone] Reason for Visit * Reason Comments Med Refill Encounter Details Date Type Department Care Team (Late st Contact Info) Description 09/30/2019 Refill [facility] [address] [place] [address] Gordon Valdivia MD [address] [place] [address] Social History Tobacco Use Types Packs/Day Years [...] on filedocumented in this encounter Care Teams Information Systems Architect Relationship Specialty Start Date End Date Nerissa Sparks CNP [address] [place], [place] [phone] PCP - General 07/06/24 documented as of this encounter
--- OUTSIDE RECORDS SUMMARY | 2024-07-13 13:08 | XMS_ITS | Encounter Summary ---
Author Organization [facility] [place], Address [address] [place] [address] Phone Care Team Providers Care Navigating Officer Name Role Phone Nerissa Sparks CNP Primary Care Provider [phone] Encounter Details Date Type Department Care Team (Late st Contact Info) Description 11/21/2022 Documentation Only [facility] [place], [address] [place] [place] [address] Dev Ramirez DO [address] [place] [address] Social History Tobacco Use Types Packs/Day Years [...] on filedocumented in this encounter Care Teams Navigating Officer Relationship Specialty Start Date End Date Nerissa Sparks CNP [address] [place], [place] [phone] PCP - General 07/06/24 documented as of this encounter
--- OUTSIDE RECORDS SUMMARY | 2024-07-13 13:08 | XMS_ITS | Encounter Summary ---
Author Organization [facility] [place], Address [address] [place] [address] Phone Care Team Providers Care Mix Crusher Operator Name Role Phone Nerissa Sparks CNP Primary Care Provider [phone] Encounter Details Date Type Department Care Team (Late st Contact Info) Description 05/31/2022 Documentation Only [facility] [place], [address] [place] [address] Yvonne Millard [address] [place] [phone] Social History Tobacco Use Types Packs/Day Years [...] on filedocumented in this encounter Care Teams Mix Crusher Operator Relationship Specialty Start Date End Date Nerissa Sparks CNP [address] [place] [address] PCP - General 07/06/24 documented as of this encounter
--- OUTSIDE RECORDS SUMMARY | 2024-07-13 13:08 | XMS_ITS | Encounter Summary ---
Author Organization [facility] [place], Address [address] [place] [address] Phone Care Team Providers Care Punch Operator Name Role Phone Nerissa Sparks CNP Primary Care Provider [phone] Reason for Visit * Reason Comments Med Refill Encounter Details Date Type Department Care Team (Late st Contact Info) Description 10/08/2022 Refill [facility] [address] [place] [address] Jaison Tineo PA Social History Tobacco Use [...] on filedocumented in this encounter Care Teams Punch Operator Relationship Specialty Start Date End Date Nerissa Sparks CNP [address] [place] [address] PCP - General 07/06/24 documented as of this encounter
--- OUTSIDE RECORDS SUMMARY | 2024-07-13 13:08 | XMS_ITS | Encounter Summary ---
Author Organization [facility] [place], Address [address] [place] [address] Phone Care Team Providers Care Rn Team Leader Name Role Phone Nerissa Spraks CNP Primary Care Provider [phone] Reason for Visit * Reason Comments Med Refill Encounter Details Date Type Department Care Team (Late st Contact Info) Description 12/28/2022 Refill [facility] [place] [address] [facility] [facility] [place] [phone] Jaison Tineo PA Social History Tobacco Use [...] filedocumented in this encounter Care Teams Rn Team Leader Relationship Specialty Start Date End Date Nerissa Sparks CNP [address] [place] [address] PCP - General 07/06/24 documented as of this encounter
--- OUTSIDE RECORDS SUMMARY | 2024-07-13 13:08 | XMS_ITS | Encounter Summary ---
Author Organization [facility] [place], Address [address] [place] [address] Phone Care Team Providers Care Plant Tender Name Role Phone Nerissa Sparks CNP Primary Care Provider [phone] Reason for Visit * Reason Comments Med Refill Encounter Details Date Type Department Care Team (Late st Contact Info) Description 07/06/2023 Refill [facility] [address] [place] [address] Harman Paul MD [address] [place] [address] Social History Tobacco Use Types Packs/Day Years [...] on filedocumented in this encounter Care Teams Plant Tender Relationship Specialty Start Date End Date Nerissa Sparks CNP [address] [place] [address] [id number] PCP - General 07/06/24 documented as of this encounter
--- OUTSIDE RECORDS SUMMARY | 2024-07-13 13:08 | XMS_ITS | Encounter Summary ---
Author Organization [facility] [place], Address [address] [place] [address] Phone Care Team Providers Care Twister Doffer Name Role Phone Nerissa Sparks CNP Primary Care Provider [phone] Encounter Details Date Type Department Care Team (Late st Contact Info) Description 03/12/2022 Documentation Only [facility] [place], [address] [place] [phone] Jaison Tineo PA Social History Tobacco Use [...] Doffer Relationship Specialty Start Date End Date Nerissa Sparks CNP [address] [place], [place] [phone] PCP - General 07/06/24 documented as of this encounter
--- OUTSIDE RECORDS SUMMARY | 2024-07-13 13:08 | XMS_ITS | Encounter Summary ---
Author Organization [facility] [place], Address PO [facility] [address] [place] [address] Phone Care Team Providers Care Atm Technician Name Role Phone Nerissa Sparks CNP Primary Care Provider [phone] Encounter Details Date Type Department Care Team (Late st Contact Info) Description 05/24/2022 Documentation Only [facility] [place], [address] [facility] [place] [address] Gordon Valdivia MD [address] [facility] [place] [address] Social History Tobacco Use Types Packs/Day Years [...] on filedocumented in this encounter Care Teams Atm Technician Relationship Specialty Start Date End Date Nerissa Sparks CNP [address] [place] [address] PCP - General 07/06/24 documented as of this encounter
--- OUTSIDE RECORDS SUMMARY | 2024-07-13 13:08 | XMS_ITS | Encounter Summary ---
Author Organization [facility] [place], Address PO [facility] [address] [place] [address] Phone Care Team Providers Care Economic Analyst Name Role Phone Nerissa Sparks CNP Primary Care Provider [phone] Encounter Details Date Type Department Care Team (Late st Contact Info) Description 05/29/2022 Documentation Only [facility] [place], [address] [place] [address] Gordon Valdivia MD [address] [facility] [place] [address] Social History Tobacco Use Types Packs/Day Years [...] on filedocumented in this encounter Care Teams Economic Analyst Relationship Specialty Start Date End Date Nerissa Sparks CNP [address] [place] [address] PCP - General 07/06/24 documented as of this encounter
--- OUTSIDE RECORDS SUMMARY | 2024-07-13 13:08 | XMS_ITS | Encounter Summary ---
Author Organization [facility] [place], Address [address] [address] Phone Care Team Providers Care Carrier Washer Name Role Phone Nerissa Sparks CNP Primary Care Provider [phone] Reason for Visit * Reason Comments Med Change Request Encounter Details Date Type Department Care Team (Late st Contact Info) Description 03/01/2022 Refill [facility] [place] [address] [place] [address] Gordon Valdivia MD [address] [place] [address] Social History Tobacco Use Types Packs/Day Years [...] on filedocumented in this encounter Care Teams Carrier Washer Relationship Specialty Start Date End Date Nerissa Sparks CNP [address] [place] [address] PCP - General 07/06/24 documented as of this encounter
--- OUTSIDE RECORDS SUMMARY | 2024-07-13 13:08 | XMS_ITS | Encounter Summary ---
Author Organization [facility] Address [address] [place] [address] Care Team Providers Care Hvac Operations Technician Name Role Phone Gordon Valdivia MD Primary Care Provider [phone] Encounter Details Date Type Department Care Team (Late st Contact Info) Description 03/12/2024 Lab Requisition [facility] [address] [place] [address] Felipe Saha MD [address] [place] [address] Hyperkalemia Social History Tobacco Use [...] LAB CHEMISTRY METHOD 03/12/2024 8:08 AM EST [facility] ([facility]) [facility] Blood Venous blood specimen / Unknown 03/12/2024 6:00 AM EST 03/12/2024 7:40 AM EST us Felipe Saha MD LAB BLOOD ORDERABLES Final R esult FREDRICKAlina FIGUEROA [place] ([facility]) [facility] [address] [place] [address], documented in this encounter Visit Diagnoses Diagnosis Hyperkalemia Hyperpotassemia documented in this encounter Care Teams Hvac Operations Technician Relationship Specialty Start Date End Date Gordon Valdivia MD [address] [place] [address] [place] [address] PCP - General 01/30/22 documented as of this encounter
--- OUTSIDE RECORDS SUMMARY | 2024-07-13 13:09 | XMS_ITS | Clinical Summary ---
Author Organization [facility] [place], Address [address] [place] [address] Phone Care Team Providers Care Coremaker Apprentice Name Role Phone ClareNerissa rodriguez SYLVIA Primary Care Provider [phone] Allergies Active Allergy Reactions Criticality Noted Date Comments Imtiaz Inhibitors Swelling High 08/19/2019 Penicillins Medium 08/19/2019 Not sure reaction Medications cloNIDine (CATAPRES) 0.2 MG tablet TAKE 1 TABLET (0.2 MG TOTAL) BY MOUTH 3 TIMES A DAY 270 tablet 3 09/24/19 22 Active NIFEdipine XL (PROCARDIA XL) 60 MG 24 hr tablet Take 1 tablet (60 mg total) by mouth in the morning and 1 tablet (60 mg total) in the evening. Do not crush, chew, or split.. 180 tablet 3 01/28/20 23 Active carvedilol (COREG) 25 MG tablet TAKE 1 TABLET BY MOUTH IN THE MORNING AND 1 TABLET IN THE EVENING. TAKE WITH MEALS. 180 tablet 3 02/19/20 23 Active Sucroferric Oxyhydroxide (Velphoro) 500 MG chewable tablet Chew 1 tablet in the morning and 1 tablet at noon and 1 tablet in the evening. Chew before meals. Active acetaminophen (TYLENOL 8 HOUR) 650 MG 8 hr tablet Take 650 mg by mouth Active ondansetron (ZOFRAN) 4 MG tablet Take 1 tablet by mouth every 4 (four) hours 03/24/19 24 Active cinacalcet (SENSIPAR) 30 MG tablet 60 mg 09/17/19 24 Active sodium polystyrene sulfonate (KAYEXALATE) powder TAKE 30 GRAMS BY MOUTH 1 TIME FOR 1 DOSE 10/28/19 24 Active acyclovir (ZOVIRAX) 400 MG tablet Take [...] bedtime. Active tacrolimus (PROGRAF) 1 MG capsule TAKE 3 CAPSULES (3 MG TOTAL) BY MOUTH IN THE MORNING AND 3 CAPSULES (3 MG TOTAL) IN THE EVENING. 540 capsule 3 06/23/19 25 Active tacrolimus (PROGRAF) 1 MG capsule Take 2 mg by mouth in the morning and 2 mg in the evening. 025 Discontinued Active Problems Problem Noted Date Diagnosed Date [...] proliferative glomerulonephritis 02/03/2022 Overview (02/03/2022): PGNMID/MGRS IgG [place] monoclonal deposits. 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); End stage renal disease (HCC) 06/30/2024 Treatment [facility] [place], [address] [place] [address] Rosanna Mcguire FNP-C End stage renal disease; Dependence on renal dialysis 06/30/2024 Orders Only [facility] [address] [address] Nathaniel Haley MD 06/25/2024 Treatment [facility] [place], [address] [place] [address] Rosanna Mcguire FNP-Mulu End stage renal disease; Dependence on renal dialysis 06/23/2024 Orders Only [facility] [address] [address] Nathaniel Haley MD 06/16/2024 Orders Only [facility] [address] [address] Nathaniel Haley MD 06/16/2024 Treatment [facility] [place], [address] [place] [address] Melanie Christie APRN End stage renal disease; Dependence on renal dialysis 06/15/2024 Refill [facility] [address] [address] Harman Paul MD 06/09/2024 Orders Only [facility] [address] [address] Nathaniel Haley MD 06/09/2024 Treatment [facility] [place] [address] [place] [address] Rosanna Mcguire, CLUB ROOM ATTENDANT-C End stage renal disease; Dependence on renal dialysis 06/03/2024 Telephone [facility] [place], [address] [facility] [place] [address] Keysha Toussaint MA 06/02/2024 Orders Only [facility] [address] [address] Nathaniel Haley MD 06/02/2024 Treatment [facility] [place] [address] [place] [address] Rosanna Mcguire FNP-C End stage renal disease; Dependence on renal dialysis 05/28/2024 Treatment [facility] [place], [address] [place] [address] Felipe Saha MD End stage renal disease; Dependence on renal dialysis 05/26/2024 Orders Only [facility] [address] [address] Nathaniel Haley MD 05/19/2024 Orders Only [facility] [address] [address] Nathaniel Haley MD 05/19/2024 Treatment [facility] [place] [address] [place] [address] Rosanna Mcguire FNP-C End stage renal disease; Dependence on renal dialysis 05/15/2024 Refill [facility] [place], [address] [facility] [address] [address] [place] [address] Dev Ramirez DO 05/14/2024 Treatment [facility] [place], [address] [place] [address] Melanie Christie APRN End stage renal disease; Dependence on renal dialysis 05/12/2024 Orders Only [facility] [address] [address] Nathaniel Haley MD 05/12/2024 Treatment [facility], [address] [place] [address] Rosanna Mcguire FNP-Mulu End stage renal disease; Dependence on renal dialysis 05/07/2024 Treatment [facility], [address] [place] [address] Felipe Saha MD End stage renal disease; Dependence on renal dialysis 05/05/2024 Orders Only [facility] [address] [address] Nathaniel Haley MD 04/28/2024 Orders Only [facility] [address] [address] Nathaniel Haley MD 04/21/2024 Orders Only [facility] [address] [address] Nathaniel Haley MD from Last 3 Months Immunizations Immunization Administration Dates Next Due Influenza, MDCK, Quadrivalent, [...] EDT Inhaled Oxygen Concentration - - Weight 113 kg (250 lb) 07/06/2024 8:54 AM EDT Height 170.2 cm (5' 7 ) 12/11/2023 12:14 PM EDT Body Mass Index 39.16 12/11/2023 12:14 PM EDT Plan of Treatment Health Maintenance Due Date Last Done Comments Pneumococcal Vaccine: Peds ( 0 to 5 Years) and At-Risk Patients (6 to 49 Years) (1 of 2 - PCV) 2000 Hepatitis B Vaccine (1 of 5 - Risk Dialysis 4-dose series) 2001 04/30/2023, 11/01/2022, 09/02/2022, Additional history exists Influenza Vaccine Completed 12/12/2023, , 01/07/2020 Procedures Procedure Name Priority Date/Time Associated Diagnosis Comments CHEMISTRY Routine 07/07/2024 HEMATOLOGY Routine 07/07/2024 [facility] RESULTS Routine 06/30/2024 HD KINETICS Routine 06/30/2024 POST CHEMISTRY Routine 06/30/2024 IMMUNO CHEMISTRY Routine 06/30/2024 CHEMISTRY Routine 06/30/2024 CHEMISTRY Routine 06/30/2024 HEMATOLOGY Routine 06/30/2024 CHEMISTRY Routine 06/23/2024 HEMATOLOGY Routine 06/23/2024 CHEMISTRY Routine 06/16/2024 HEMATOLOGY Routine 06/16/2024 CHEMISTRY Routine 06/09/2024 HEMATOLOGY Routine 06/09/2024 CHEMISTRY Routine 06/02/2024 HEMATOLOGY Routine 06/02/2024 [facility] RES[facility] Routine 05/26/2024 HD KINETICS Routine 05/26/2024 POST CHEMISTRY Routine 05/26/2024 CHEMISTRY Routine 05/26/2024 CHEMISTRY Routine 05/26/2024 IMMUNO CHEMISTRY Routine 05/26/2024 SPECIAL CHEMISTRY Routine 05/26/2024 HEMATOLOGY Routine 05/26/2024 CHEMISTRY Routine 05/19/2024 HEMATOLOGY Routine 05/19/2024 HEMATOLOGY Routine 05/12/2024 CHEMISTRY Routine 05/12/2024 CHEMISTRY Routine 05/05/2024 HEMATOLOGY Routine 05/05/2024 [facility] RESULTS Routine 04/28/2024 HD KINETICS Routine 04/28/2024 POST CHEMISTRY Routine 04/28/2024 IMMUNO CHEMISTRY Routine 04/28/2024 CHEMISTRY Routine 04/28/2024 CHEMISTRY Routine 04/28/2024 HEMATOLOGY Routine 04/28/2024 CHEMISTRY Routine 04/21/2024 HEMATOLOGY Routine 04/21/2024 from Last 3 Months Results * (ABNORMAL) HEMATOLOGY (07/07/2024) Only the most recent of12 resultswithin the time period is included. Hemoglobin 12.2(L) 14.0 - 18.0 g/dL [facility] Hemoglobin x 3 36.6(L) 42.0 - 54.0 % [facility] 07/07/2024 07/08/2024 9:2 8 AM EDT Narrative [facility] - 07/08/2024 Unless otherwise specified, test(s) performed at: [facility], [address] [place] [address] HEMODIALYSIS PATIENT CARE SPECIALIST: Brain Alvarado M.D. For any questions, please call customer service at FREQUENCY:OTHER Resulting Agency Comment Specimen source: Blood us Nathaniel Haley MD LAB BLOOD ORDERABLES Final Re sult [facility] See order comments or contact performing lab Unknown, [place] * [facility] Chemistry (07/07/2024) Only the most recent of15 resultswithin the time period is included. Potassium 4.7 3.5 - 5.1 mEq/L [facility] 07/07/2024 07/08/2024 9:4 0 AM EDT Narrative [facility] 07/08/2024 Unless otherwise specified, test(s) performed at: [facility], [address] [place] [address] HEMODIALYSIS PATIENT CARE SPECIALIST: Brain Alvarado M.D. For any questions, please call customer service at FREQUENCY:OTHER Resulting Agency Comment Specimen source: Serum Nathaniel Haley MD LAB BLOOD ORDERABLES Final Re sult Performing Organization Address [facility] de Phone Number [facility] See order comments or contact performing lab Unknown, [place] * [facility]ET[facility] (06/30/2024) Only the most recent of3 resultswithin the time period is included. % Urea Reduction 68 65 - 80 % [facility] 06/30/2024 07/03/2024 12: 53 PM EDT Narrative Resulting Agency Comment Specimen source: Plasma Nathaniel Haley MD LAB BLOOD ORDERABLES Final Re sult Performing Organization Address [facility] de Phone Number [facility] See order comments or contact performing lab Unknown, [place] * (ABNORMAL) POST CHEMISTRY (06/30/2024) Only the most recent of3 resultswithin the time period is included. BUN Post Dialysis 26(H) 6 - 19 mg/dL [facility] 06/30/2024 07/03/2024 12: 53 PM EDT Narrative [facility] - 07/03/2024 Unless otherwise specified, test(s) performed at: [facility], [address] [place] [address] HEMODIALYSIS PATIENT CARE SPECIALIST: Brain Alvarado M.D. For any questions, please call customer service at FREQUENCY:MONTHLY Resulting Agency Comment Specimen source: Plasma Nathaniel Haley MD LAB BLOOD ORDERABLES Final Re sult Performing Organization Address [facility] de Phone Number [facility] See order comments or contact performing lab Unknown, [place] * IMMUNO CHEMISTRY (06/30/2024) Only the most recent of3 resultswithin the time period is included. Hep B Surface Ag Negative Negative [facility] 06/30/2024 07/01/2024 11: 02 AM EDT Narrative Resulting Agency Comment Specimen source: Serum Nathaniel Haley MD LAB BLOOD ORDERABLES Final Re sult [facility] See order comments or contact performing lab Unknown, [place] * [facility] Results (06/30/2024) Only the most recent of3 resultswithin the time period is included. nPCR_HD 1.40 [facility] PCR 81.90 [facility] spKt/V (Daugirdas II) 1.37 [facility] eKt/V ([place]) 1.19 [facility] spKt/V Gotch 1.47 [facility] eKdrt/V 1.28 [facility] eNPCR 1.27 [facility] eKt/V Gotch 1.28 Knowledg e Center WSTDKT/V 2.3 [facility] 06/30/2024 06/30/2024 [facility] Ordering Provider LAB BLOOD ORDERABLES Final Result Performing Organization Address [facility]/ZIP Co de Phone Number [facility] Contact Performing lab Unknown, [place] * SPECIAL CHEMISTRY (05/26/2024) Pathologist [facility] Creatine Kinase (CK/CPK) 172 30 - 223 U/L [facility] 05/26/2024 05/27/2024 9:4 4 AM EDT Narrative [facility] - 05/27/2024 Unless otherwise specified, test(s) performed at: [facility], [address] [place] [address] HEMODIALYSIS PATIENT CARE SPECIALIST: Brain Alvarado M.D. For any questions, please call customer service at FREQUENCY:MONTHLY Resulting Agency Comment Specimen source: Serum Nathaniel Haley MD LAB BLOOD BANK TEST ORDERABLE S Final Result Performing Organization Address City/[facility]/ZIP Co de Phone Number [facility] See order comments or contact performing lab Unknown, [place] from Last 3 Months Insurance [facility] Care Teams Coremaker Apprentice Relationship Specialty Start Date End Date Nerissa Sparks CNP [address] [place] [address] PCP - General 07/06/24
--- OUTSIDE RECORDS SUMMARY | 2024-07-13 13:09 | XMS_ITS | Encounter Summary ---
Author Organization [facility] [place], Address [address] [place] [address] Phone Care Team Providers Care Graphic Coordinator Name Role Phone Nerissa Sparks CNP Primary Care Provider Reason for Visit * Reason Comments Med Refill Encounter Details Date Type Department Care Team (Late st Contact Info) Description 01/21/2023 Refill [facility] [address] [address] Jaison Tineo PA Social History Tobacco Use [...] on filedocumented in this encounter Care Teams Graphic Coordinator Relationship Specialty Start Date End Date Nerissa Sparks CNP [address] [place] [address] PCP - General 07/06/24 documented as of this encounter
--- OUTSIDE RECORDS SUMMARY | 2024-07-13 13:09 | XMS_ITS | Encounter Summary ---
Author Organization [facility] [place], Address PO [facility] [address] [place] [address] Phone Care Team Providers Care Licensing Coordinator Name Role Phone Nerissa Sparks CNP Primary Care Provider [phone] Encounter Details Date Type Department Care Team (Late st Contact Info) Description 11/16/2021 Documentation Only [facility] [place], [address] [place] [address] Gordon Valdivia MD [address] [facility] [place] [address] Social History Tobacco Use Types Packs/Day Years [...] on filedocumented in this encounter Care Teams Licensing Coordinator Relationship Specialty Start Date End Date Nerissa Sparks CNP [address] [place] [address] PCP - General 07/06/24 documented as of this encounter
--- OUTSIDE RECORDS SUMMARY | 2024-07-13 13:09 | XMS_ITS | Encounter Summary ---
Author Organization [facility] [place], Address [address] [place] [address] Phone Care Team Providers Care Field Crop Farming Supervisor Name Role Phone Nerissa Sparks CNP Primary Care Provider [phone] Encounter Details Date Type Department Care Team (Late st Contact Info) Description 03/25/2023 Documentation Only [facility] [place], [address] [place] [address] Dev Ramirez DO [address] [place] [phone] Social History Tobacco Use Types Packs/Day Years [...] on filedocumented in this encounter Care Teams Field Crop Farming Supervisor Relationship Specialty Start Date End Date Nerissa Sparks CNP [address] [place], [place] [phone] PCP - General 07/06/24 documented as of this encounter
--- OUTSIDE RECORDS SUMMARY | 2024-07-13 13:09 | XMS_ITS | Encounter Summary ---
Author Organization [facility] [place], Address [address] [place] [address] Phone Care Team Providers Care Real Estate Agency Licensee Name Role Phone Nerissa Sparks CNP Primary Care Provider Reason for Visit * Reason Comments Med Refill Encounter Details Date Type Department Care Team (Late st Contact Info) Description 11/11/2020 Refill [facility] [address] [place] [address] Jaison Tinoe PA Social History Tobacco Use Types Packs/Day [...] on filedocumented in this encounter Care Teams Real Estate Agency Licensee Relationship Specialty Start Date End Date Nerissa Sparks CNP [address] [place] [id number] PCP - General 07/06/24 documented as of this encounter
--- OUTSIDE RECORDS SUMMARY | 2024-07-13 13:09 | XMS_ITS | Encounter Summary ---
Author Organization [facility], Address [address] [place] [address] Phone Care Team Providers Care Machine Cloth Examiner Name Role Phone Nerissa Sparks CNP Primary Care Provider [phone] Reason for Visit * Reason Comments Med Refill Encounter Details Date Type Department Care Team (Late st Contact Info) Description 03/15/2023 Refill [facility] [address] [place] [phone] Harman Paul MD [address] [place] [address] Social History Tobacco Use Types Packs/Day Years [...] on filedocumented in this encounter Care Teams Machine Cloth Examiner Relationship Specialty Start Date End Date Nerissa Spraks CNP [address] [place] [id number] PCP - General 07/06/24 documented as of this encounter
--- OUTSIDE RECORDS SUMMARY | 2024-07-13 13:09 | XMS_ITS | Encounter Summary ---
Author Organization [facility], Address [address] [place] [address] Phone Care Team Providers Care Parimutuel Ticket Seller Name Role Phone Nerissa Sparks CNP Primary Care Provider [phone] Reason for Visit * Reason Comments Med Refill Encounter Details Date Type Department Care Team (Late st Contact Info) Description 01/26/2023 Refill [facility] [address] [place] [phone] Nathaniel Haley MD [address] [place] [address] Social History Tobacco Use Types Packs/Day Years [...] on filedocumented in this encounter Care Teams Parimutuel Ticket Seller Relationship Specialty Start Date End Date Nerissa Sparks CNP [address] [place] [id number] PCP - General 07/06/24 documented as of this encounter
--- OUTSIDE RECORDS SUMMARY | 2024-07-13 13:09 | XMS_ITS | Encounter Summary ---
Author Organization [facility], Address [address] [place] [address] Phone Care Team Providers Care Bread Jockey Name Role Phone Nerissa Sparks CNP Primary Care Provider [phone] Reason for Visit * Reason Comments Med Refill Encounter Details Date Type Department Care Team (Late st Contact Info) Description 01/22/2024 Refill [facility], [address] [place] [place] [phone] Dev Ramirez, [address] [place] [address] Social History Tobacco Use Types Packs/Day Years [...] on filedocumented in this encounter Care Teams Bread Jockey Relationship Specialty Start Date End Date Nerissa Sparks CNP [address] [place], [place] [phone] PCP - General 07/06/24 documented as of this encounter
--- OUTSIDE RECORDS SUMMARY | 2024-07-13 13:09 | XMS_ITS | Encounter Summary ---
Author Organization [facility], Address [address] [place] [address] Phone Care Team Providers Care Tool Room Attendant Name Role Phone Nerissa Sparks CNP Primary Care Provider [phone] Reason for Visit * Reason Comments Med Refill Encounter Details Date Type Department Care Team (Late st Contact Info) Description 01/09/2023 Refill [facility] [address] [place] [phone] Nathaniel Haley MD [address] [place] [address] Social History Tobacco Use Types Packs/Day Years [...] filedocumented in this encounter Care Teams Tool Room Attendant Relationship Specialty Start Date End Date Nerissa Sparks CNP [address] [place] [id number] PCP - General 07/06/24 documented as of this encounter
--- OUTSIDE RECORDS SUMMARY | 2024-07-13 13:09 | XMS_ITS | Encounter Summary ---
Author Organization [facility], Address [address] [place] [address] Phone Care Team Providers Care Paper Cone Maker Name Role Phone Nerissa Sparks CNP Primary Care Provider [phone] Reason for Visit * Reason Comments Med Refill Encounter Details Date Type Department Care Team (Late st Contact Info) Description 07/31/2020 Refill [facility] [address] [place] [phone] Jaison Tineo PA Social History Tobacco Use [...] on filedocumented in this encounter Care Teams Paper Cone Maker Relationship Specialty Start Date End Date Nerissa Sparks CNP [address] [place] [address] PCP - General 07/06/24 documented as of this encounter
--- OUTSIDE RECORDS SUMMARY | 2024-07-13 13:09 | XMS_ITS | Encounter Summary ---
Author Organization [facility] [place] [facility], Address [address] [place] [address] Phone Care Team Providers Care Line Haul Truck Driver Name Role Phone Nerissa Sparks CNP Primary Care Provider [phone] Reason for Visit * Reason Comments Med Refill Encounter Details Date Type Department Care Team (Late st Contact Info) Description 06/15/2024 Refill [facility] [address] [place] [phone] Harman Paul MD [address] [place] [address] Social History Tobacco Use Types Packs/Day Years [...] on filedocumented in this encounter Care Teams Line Haul Truck Driver Relationship Specialty Start Date End Date Nerissa Sparks CNP [address] [place], [place] [phone] PCP - General 07/06/24 documented as of this encounter
--- OUTSIDE RECORDS SUMMARY | 2024-07-13 13:09 | XMS_ITS | Encounter Summary ---
Author Organization [facility], Address [address] [place] [address] Phone Care Team Providers Care Procurement Inspector Name Role Phone Nerissa Sparks CNP Primary Care Provider [phone] Encounter Details Date Type Department Care Team (Late st Contact Info) Description 01/19/2024 Documentation Only [facility], [address] [place] [address] Hetal Johnston [place] [address] [place] [phone] Social History Tobacco Use Types Packs/Day Years [...] on filedocumented in this encounter Care Teams Procurement Inspector Relationship Specialty Start Date End Date Nerissa Sparks CNP [address] [place], [place] [phone] PCP - General 07/06/24 documented as of this encounter
--- OUTSIDE RECORDS SUMMARY | 2024-07-13 13:09 | XMS_ITS | Encounter Summary ---
Author Organization [facility], Address [address] [place] [address] Phone Care Team Providers Care Tire Manager Name Role Phone Nerissa Sparks CNP Primary Care Provider [phone] Reason for Visit * Reason Comments Med Refill Encounter Details Date Type Department Care Team (Late st Contact Info) Description 09/29/2023 Refill [facility] [address] [place] [phone] Jaison Tineo PA Social History Tobacco Use [...] on filedocumented in this encounter Care Teams Tire Manager Relationship Specialty Start Date End Date Nerissa Sparks CNP [address] [place] [phone] PCP - General 07/06/24 documented as of this encounter
--- OUTSIDE RECORDS SUMMARY | 2024-07-13 13:09 | XMS_ITS | Clinical Summary ---
Author Organization [address] Address [address] [place] [address] Phone Care Team Providers Care Multisensor Intelligence Officer Name Role Phone Gordon Valdivia MD Primary Care Provider [phone] Surgical History Surgery Date Site/Laterality Comments TONSILLECTOMY PROCEDURE:TONSILLECTOMY Medical History Medical History Date Comments Anemia DX:Anemia GERD (gastroesophageal reflux disease) DX:GERD (gastroesophageal reflux disease) Hypertension DX:Hypertension Chronic kidney disease DX:Chroni c kidney disease Proteinuria DX:Proteinuria Legionella pneumonia (CMS/HC C V24, CMS/HCC V28) DX:Legionella pneumonia (HCC ) 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) DX:Hemodialysis AV fistula a neurysm ([facility]) Obesity DX:Obesity Dyslipidemia DX:Dyslipidemia Family History Medical [...] Influencers of Health Screening 03/25/2023 Influenza Vaccine (Season Ended) 2024 HIB Vaccines Aged Out No longer eligi [...] age to complete this topic Meningococcal B Vaccine Aged Out No l onger eligible based on patient's age to complete this topic RSV Immunization Patients Un hodan 20 months Aged Out No longer eligible b ased on patient's age to complete this topic Varicella Vaccines Aged Out No longer eligible based on patient's age to complete this topic Insurance [facility] Care Teams Multisensor Intelligence Officer Relationship Specialty Start Date End Date Gordon Valdivia MD [address] [place] [address] [place] [address] PCP - General 01/30/22
--- OUTSIDE RECORDS SUMMARY | 2024-07-13 13:09 | XMS_ITS | Encounter Summary ---
Author Organization [facility] [place], Address [address] [place] [address] Phone Care Team Providers Care First Breaker Feeder Name Role Phone Nerissa Sparks CNP Primary Care Provider Encounter Details Date Type Department Care Team (Late st Contact Info) Description 08/31/2021 Documentation Only [facility], [address] [place] [address] Jarett Montenegro [place] [address] [place] [phone] Social History Tobacco Use Types Packs/Day Years [...] on filedocumented in this encounter Care Teams First Breaker Feeder Relationship Specialty Start Date End Date Nerissa Sparks CNP [address] [place] [phone] PCP - General 07/06/24 documented as of this encounter
--- OUTSIDE RECORDS SUMMARY | 2024-07-13 13:09 | XMS_ITS | Clinical Summary ---
Author Organization [facility] Address [address] [place] [address] Care Team Providers Care Radiology Assistant Name Role Phone Gordon Valdivia MD Primary [...] age to complete this topic Care Teams Radiology Assistant Relationship Specialty Start Date End Date Gordon Valdivia MD [address] [place] [address] [place] [address] PCP - General Nephrology 01/30/22
--- OUTSIDE RECORDS SUMMARY | 2024-07-13 13:09 | XMS_ITS | Encounter Summary ---
Author Organization [facility] Address [address] [place] [address] Care Team Providers Care Transmission Builder Name Role Phone Gordon Valdivia MD Primary Care Provider [phone] Encounter Details Date Type Department Care Team (Late st Contact Info) Description 03/03/2024 Lab Requisition [facility] - Main Lab [address] [place] [address] Felipe Saha MD [address] [place] [address] Hyperkalemia Social History Tobacco Use [...] LAB CHEMISTRY METHOD 03/03/2024 3:02 PM EST [facility] ([facility]) [facility] Blood Venous blood specimen / Unknown 03/03/2024 2:30 PM EST 03/03/2024 2:31 PM EST us Felipe Saha MD LAB BLOOD ORDERABLES Final R esult FREDRICKAlina FIGUEROA [place] ([facility]) [facility] [address] [place] [address], documented in this encounter Visit Diagnoses Diagnosis Hyperkalemia Hyperpotassemia documented in this encounter Care Teams Transmission Builder Relationship Specialty Start Date End Date Gordon Valdivia MD [address] [place] [address] [place] [address] PCP - General 01/30/22 documented as of this encounter
--- OUTSIDE RECORDS SUMMARY | 2024-07-13 13:09 | XMS_ITS | Encounter Summary ---
Author Organization [facility], Address [address] [place] [address] Phone Care Team Providers Care Medical Editor Name Role Phone Nerissa Sparks CNP Primary Care Provider [phone] Reason for Visit * Reason Comments Med Refill Encounter Details Date Type Department Care Team (Late st Contact Info) Description 02/23/2023 Refill [facility] [address] [place] [phone] Nathaniel Haley MD [address] [place] [address] Social History Tobacco Use Types Packs/Day Years [...] on filedocumented in this encounter Care Teams Medical Editor Relationship Specialty Start Date End Date Nerissa Sparks CNP [address] [place] [address] [phone] PCP - General 07/06/24 documented as of this encounter
--- OUTSIDE RECORDS SUMMARY | 2024-07-13 13:09 | XMS_ITS | Encounter Summary ---
Author Organization [facility], Address [address] [place] [address] Phone Care Team Providers Care Hr Intern Name Role Phone Nerissa Sparks CNP Primary Care Provider [phone] Reason for Visit * Reason Comments Med Refill Encounter Details Date Type Department Care Team (Late st Contact Info) Description 02/10/2023 Refill [facility] [address] [place] [phone] Nathaniel Haley MD [address] [place] [address] Social History Tobacco Use Types Packs/Day Years [...] on filedocumented in this encounter Care Teams Hr Intern Relationship Specialty Start Date End Date Nerissa Sparks CNP [address] [place] [address] [phone] PCP - General 07/06/24 documented as of this encounter
--- OUTSIDE RECORDS SUMMARY | 2024-07-13 13:09 | XMS_ITS | Encounter Summary ---
Author Organization [facility] [place], Address [address] [place] [address] Phone Care Team Providers Care Passenger Tire Builder Name Role Phone Nerissa Sparks CNP Primary Care Provider [phone] Reason for Visit * Reason Comments Med Refill Encounter Details Date Type Department Care Team (Late st Contact Info) Description 09/29/2023 Refill [facility] [address] [place] [address] Harman Paul MD [address] [place] [address] Social History Tobacco Use Types Packs/Day Years [...] on filedocumented in this encounter Care Teams Passenger Tire Builder Relationship Specialty Start Date End Date Nerissa Sparks CNP [address] [place] [address] [phone] PCP - General 07/06/24 documented as of this encounter
--- OUTSIDE RECORDS SUMMARY | 2024-07-13 13:09 | XMS_ITS | Encounter Summary ---
Author Organization [facility] [place], Address [address] [place] [address] Phone Care Team Providers Care Cattyman Name Role Phone Nerissa Sparks CNP Primary Care Provider [phone] Reason for Visit * Reason Comments Med Refill Encounter Details Date Type Department Care Team (Late st Contact Info) Description 05/06/2021 Refill [facility] [address] [place] [address] Jaison Tineo PA Kidney replaced by transplant; [...] therapy documented in this encounter Care Teams Cattyman Relationship Specialty Start Date End Date Nerissa Sparks CNP [address] [place] [id number] PCP - General 07/06/24 documented as of this encounter
[2024-07-13 14:23] LABS: MANUAL DIFF FLAG NO
[2024-07-13 14:30] LABS: Basophils Absolute Auto 0.1 X10*3/uL (0.0-0.2); Basophils Percent Auto 0.8 % (0-2); Eosinophils Absolute Auto 0.6 X10*3/uL (0.0-0.4); Eosinophils Percent Auto 9.4 % (0-4); Hematocrit 41.4 % (42.0-52.0); Hemoglobin 13.3 g/dl (14.0-18.0); Imm Gran Abs Auto 0.01 X10*3/uL (0.00-0.03); Imm Gran Pct Auto 0.2 % (0.0-0.4); Lymphocytes Absolute Auto 1.9 X10*3/uL (1.2-4.9); Lymphocytes Percent Auto 29.4 % (20-40); Mean Corpuscular HGB Conc 32.1 g/dl (31.0-36.0); Mean Corpuscular Hemoglobin 31.1 pg (27.0-33.0); Mean Corpuscular Volume 96.7 fL (80.0-98.0); Mean Platelet Volume 10.3 fL (9.4-12.4); Monocytes Absolute Auto 0.7 X10*3/uL (0.1-1.2); Monocytes Percent Auto 10.8 % (2-11); Neutrophils Absolute Auto 3.2 x10*3/uL (2.0-8.3); Neutrophils Percent Auto 49.4 % (45-73); Platelet Count 260 X10*3/uL (160-400); Red Blood Count 4.28 X10*6/uL (4.60-5.80); Red Cell Distribution Width 13.4 % (11.0-16.0); White Blood Count 6.5 X10*3/uL (4.8-10.8)
[2024-07-13 15:14] LABS: TSH reflex Free T4 0.16 uIU/mL (0.32-4.0)
[2024-07-13 15:38] LABS: Alanine Aminotransferase 9 U/L (0-40); Albumin Level 4.3 g/dL (3.5-5.0); Alkaline Phosphatase 84 U/L (39-117); Anion Gap 20 (12-20); Aspartate Amino Transferase 25 U/L (5-37); Bilirubin Total 0.5 mg/dL (0.0-1.0); Blood Urea Nitrogen 47 mg/dL (9-16); Calcium 8.2 mg/dL (8.4-10.2); Carbon Dioxide 29 mmol/L (22-29); Chloride 94 mmol/L (96-108); Cholesterol 200 mg/dL (<200); Estimated Glomerular Filt Rate 4; Glucose Fasting 75 mg/dL (60-99); HDL Cholesterol 38 mg/dL (>40); LDL Cholesterol Calculated 118 mg/dL (<100); Potassium 4.2 mmol/L (3.3-5.1); Sodium 139 mmol/L (135-145); Total Protein 8.2 g/dL (6.5-8.0); Triglycerides 222 mg/dL (<150)
[2024-07-13 16:28] LABS: Free T4 (Free Thyroxine) 0.95 ng/dL (0.71-1.85)
[2024-07-21 07:49] LABS: PSA, Ultra Sensitive 0.71 ng/mL
== END 2024-07-13 11:57 | disposition home or self-care (01) ==
LOC: HO.WFDLDS 11:56
PROVIDERS: Visit Provider Nurse Practitioner Family
DX: N05.1 Unspecified nephritic syndrome with focal and segmental glomerular lesions (principal); E78.5 Hyperlipidemia, unspecified; E55.9 Vitamin D deficiency, unspecified; R94.6 Abnormal results of thyroid function studies; D64.9 Anemia, unspecified; Z12.5 Encounter for screening for malignant neoplasm of prostate
CPT/HCPCS: 36415; 80053; 80061; 82306; 84153; 84439; 84443; 85025; 98967

== ENCOUNTER 2024-07-13 16:51 | Outpatient (AMB) | payer BC, SELFPAY ==
--- NOTE | 2024-07-13 16:48 | A.OFFPC_ITS ---
Intake Visit Reasons: Telehealth 2-3 wks labs review Intake Note: patient here for 2-3 wks telehealth follow up for lab review Preschool Principal Required: No Allergies BRITTANIE Inhibitors Allergy (Mild, Verified 07/13/24 16:48) lip swelling Tobacco use date assessed: 07/13/24 Dental Screening Dental Screen Date: 07/13/24 Did you have a dental visit in the last 12 months?: No Did you have a dental problem in the last 6 months where you did not have access to dental care?: No Was dental information given to patient?: No HPI HPI Comments History of Present Illness Details 43-year-old male [facility] for review of recent lab results. He admits to taking his medications as prescribed without adverse reactions. He offers no complaints and denies acute symptoms at this time. He gets hemodialysis done every Friday, Friday, and Friday and had dialysis yesterday. [facility] Medical History (Updated 07/13/24 @ 17:17 by Nerissa Sparks CNP) Shingles FSGS (focal segmental glomerulosclerosis) Surgical History (Updated 05/03/24 @ 09:03 by Daniella Galicia MA) History of tonsillectomy Kidney transplant recipient Family History (Updated 05/03/24 @ 09:02 by Daniella Galicia MA) Mother High blood pressure Father Cardiovascular disease Paternal Grandmother Cardiovascular disease Social History (Updated 05/03/24 @ 09:03 by Daniella Galicia MA) Housing: Apartment Patient Tobacco Use Status: Never used Tobacco e-Cigarette/Vaping Use: Currently Using Second Hand Smoke Exposure: No Substance Use Type: Marijuana service: No Current occupational status: employed Current occupation: education Current occupational exposures/hazards: No Cognitive needs: No Hearing needs: No Vision needs: No Questionnaire Thrive Questionnaire Date Thrive assessed: 05/03/24 HKANH-7 AMB Questionnaire KHANH-7 Date KHANH - 7 assessed: 05/03/24 Source: Developed by Drs. Markie Corona, Claribel Valentin, Renato Tenorio and colleagues, with an educational michelle from [employer]. Review of Systems Const Details: Denies chills, Denies fatigue, Denies fever(s), Denies headache(s) and Denies weakness Cardiac Denies chest pain, Denies claudication, Denies leg edema, Denies lightheadedness, Denies palpitations, Denies dyspnea, Denies dyspnea on exertion, Denies orthopnea and Denies other (Loss of consciousness) Resp Denies cough, Denies excessive phlegm production, Denies dyspnea, Denies dyspnea on exertion, Denies snoring and Denies wheezing Physical exam (Primary Care) Tobacco/Smoking Status: Tobacco use Status Tobacco use date assessed 07/13/24 07/13/24 16:50 Patient Tobacco Use Status Never used Tobacco 07/13/24 16:50 e-Cigarette/Vaping Use Currently Using 07/13/24 16:50 Thrive Assessment: Date of Thrive Assessment Date Thrive assessed 05/03/24 07/13/24 16:50 Const Other: Patient is alert oriented x3. Telehealth Telehealth Telehealth Platform: Telephone Location of provider rendering services: practice address Location of patient: address on file Patient Identification confirmed using: Name, : Yes Telehealth method: voice only Patient verbally consented to treatment: Yes Patient verbally consented to billing insurance company: Yes Patient informed of any privacy concerns related to visit: Yes Coding Level of Care Code Tele Est Pt Level 3 (89924) Diagnoses FSGS (focal segmental glomerulosclerosis) N05.1 Hyperlipidemia E78.5 Vitamin D deficiency E55.9 Low TSH level R79.89 Normocytic anemia D64.9 Time Spent (min) 20 Assessment & Plan Assessment & Plan (1) FSGS (focal segmental glomerulosclerosis): Code(s): N05.1 - Unspecified nephritic syndrome with focal and segmental glomerular lesions Category: Medical Plan: Recent BUN/creatinine level is significantly elevated, 47/12.49. He gets dialysis done every MWF. His last dialysis was yesterday and has one scheduled for tomorrow. Encouraged to follow-up for dialysis as scheduled. Continue current treatment regimen. Follow-up with Nephrology as planned. Verbalized understanding and agreed with treatment plan. (2) Hyperlipidemia: Code(s): E78.5 - Hyperlipidemia, unspecified Category: Medical Plan: Recent triglycerides, total cholesterol, and LDL levels are elevated, 222, 200, and 118 respectively. HDL level is slightly low, 38. Advised to limit foods high in saturated fat and avoid foods high in trans fat. Routine exercise encouraged. Fast for 10-12 hours, may drink water, performed lipid panel blood work 2-3 days before next visit. Follow-up in 2 months. Verbalized understanding and agreed with the plan. (3) Vitamin D deficiency: Code(s): E55.9 - Vitamin D deficiency, unspecified Category: Medical Plan: Recent vitamin-D level is low, 20. Vitamin D3 1000 units daily ordered; advised to take as prescribed. Will recheck vitamin-D level in two months. Verbalized understanding and agreed with the plan. (4) Low TSH level: Code(s): R79.89 - Other specified abnormal findings of blood chemistry Category: Medical Plan: Recent TSH is depressed, 0.16, free T4 is normal. Reports heat intolerance and sweating for several years - symptoms are worst on dialysis days. Likely due to kidney disease but hyperthyroidism is possible. Will refer to endocrinology for further workup. Verbalized understanding and agreed with the plan. (5) Normocytic anemia: Code(s): D64.9 - Anemia, unspecified Category: Medical Plan: Recent RBC and H&H her slightly low, 4.28 and 13.3/41.4 respectively, MCV is normal. Likely anemia of chronic disease such as kidney disease. Will recheck CBC and check iron profile, ferritin level, vitamin B12 and folate levels. Will make changes as needed. Verbalized understanding and agreed with plan. Orders: Orders Lipid Panel 2 Months E78.5 - Hyperlipidemia, unspecified IRON PROFILE Today D64.9 - Anemia, unspecified TSH reflex Free T4 2 Months R79.89 - Other specified abnormal findings of blood chemistry Vitamin B12 and Folate Today D64.9 - Anemia, unspecified Ferritin Today D64.9 - Anemia, unspecified Complete Blood Count no Diff Today D64.9 - Anemia, unspecified Referrals Endocrinology Referral R7.89 - Other specified abnormal findings of blood chemistry Medications: New cholecalciferol (vitamin D3) 25 mcg PO DAILY 90 days 90 tabs 1RF
--- OUTSIDE RECORDS SUMMARY | 2024-07-13 16:53 | XMS_ITS | Encounter Summary ---
Author Organization [facility] [place], Address [address] [place] [address] Phone Care Team Providers Care Director Of Family Service Center Name Role Phone Nerissa Sparks CNP Primary Care Provider [phone] Reason for Visit * Reason Comments Med Refill Encounter Details Date Type Department Care Team (Late st Contact Info) Description 07/31/2020 Refill [facility] [address] [place] [phone] Jaison Tineo PA Social History Tobacco Use [...] on filedocumented in this encounter Care Teams Director Of Family Service Center Relationship Specialty Start Date End Date Nerissa Sparks CNP [address] [place] [address] PCP - General 07/06/24 documented as of this encounter
--- OUTSIDE RECORDS SUMMARY | 2024-07-13 16:53 | XMS_ITS | Encounter Summary ---
Author Organization [facility] [place], Address [address] [facility] [address] [place] [address] Phone Care Team Providers Care Recruiting Manager Name Role Phone Nerissa Sparks CNP Primary Care Provider [phone] Encounter Details Date Type Department Care Team (Late st Contact Info) Description 03/12/2022 Documentation Only [facility] [place], [address] [facility] [place] [address] Gordon Valdivia MD [address] [facility] [address] [place] [phone] Social History Tobacco Use Types Packs/Day Years [...] on filedocumented in this encounter Care Teams Recruiting Manager Relationship Specialty Start Date End Date Nerissa Sparks CNP [address] [place] [phone] PCP - General 07/06/24 documented as of this encounter
--- OUTSIDE RECORDS SUMMARY | 2024-07-13 16:53 | XMS_ITS | Clinical Summary ---
Author Organization [facility] Address [address] [place] [address] Care Team Providers Care Pressurization Mechanic Name Role Phone Gordon Valdivia MD Primary [...] age to complete this topic Care Teams Pressurization Mechanic Relationship Specialty Start Date End Date Gordon Valdivia MD [address] [place] [address] [place] [address] PCP - General Nephrology 01/30/22
--- OUTSIDE RECORDS SUMMARY | 2024-07-13 16:53 | XMS_ITS | Encounter Summary ---
Author Organization [facility] [place], Address PO [facility] [address] [place] [address] Phone Care Team Providers Care Safety Supervisor Name Role Phone Nerissa Sparks CNP Primary Care Provider [phone] Encounter Details Date Type Department Care Team (Late st Contact Info) Description 05/24/2022 Documentation Only [facility] [place], [address] [place] [address] Gordon Valdivia MD [address] [facility] [address] [address] Social History Tobacco Use Types Packs/Day Years [...] on filedocumented in this encounter Care Teams Safety Supervisor Relationship Specialty Start Date End Date Nerissa Sparks CNP [address] [place] [address] PCP - General 07/06/24 documented as of this encounter
--- OUTSIDE RECORDS SUMMARY | 2024-07-13 16:53 | XMS_ITS | Encounter Summary ---
Author Organization [facility] [place], Address [address] [place] [address] Phone Care Team Providers Care Metal Base Blocker Name Role Phone Nerissa Sparks CNP Primary Care Provider [phone] Reason for Visit * Reason Comments Med Refill Encounter Details Date Type Department Care Team (Late st Contact Info) Description 01/09/2023 Refill [facility] [address] [place] [phone] Nathaniel Haley MD [address] [place] [address] Social History Tobacco Use Types Packs/Day Years [...] on filedocumented in this encounter Care Teams Metal Base Blocker Relationship Specialty Start Date End Date Nerissa Sparks CNP [address] [place] [address] [id number] PCP - General 07/06/24 documented as of this encounter
--- OUTSIDE RECORDS SUMMARY | 2024-07-13 16:53 | XMS_ITS | Encounter Summary ---
Author Organization [facility] [place], Address [address] [place] [address] Phone Care Team Providers Care Plater Supervisor Name Role Phone Nerissa Sparks CNP Primary Care Provider [phone] Reason for Visit * Reason Comments Med Refill Encounter Details Date Type Department Care Team (Late st Contact Info) Description 10/08/2022 Refill [facility] [address] [place] [address] Jaison Tineo PA Social History Tobacco Use [...] on filedocumented in this encounter Care Teams Plater Supervisor Relationship Specialty Start Date End Date Nerissa Sparks CNP [address] [place] [address] PCP - General 07/06/24 documented as of this encounter
--- OUTSIDE RECORDS SUMMARY | 2024-07-13 16:53 | XMS_ITS | Encounter Summary ---
Author Organization [facility] Address [address] [place] [address] Care Team Providers Care Coal Chute Worker Name Role Phone Gordon Valdivia MD Primary Care Provider [phone] Encounter Details Date Type Department Care Team (Late st Contact Info) Description 03/12/2024 Lab Requisition [facility] [address] [place] [address] Felipe Saha MD [address] [place] [address] Hyperkalemia Social History Tobacco Use [...] LAB CHEMISTRY METHOD 03/12/2024 8:08 AM EST [facility] ([facility]) [facility] Blood Venous blood specimen / Unknown 03/12/2024 6:00 AM EST 03/12/2024 7:40 AM EST us Felipe Saha MD LAB BLOOD ORDERABLES Final R esult FREDRICKAlina FIGUEROA [place] ([facility]) [facility] [address] [place] [address], documented in this encounter Visit Diagnoses Diagnosis Hyperkalemia Hyperpotassemia documented in this encounter Care Teams Coal Chute Worker Relationship Specialty Start Date End Date Gordon Valdivia MD [address] [place] [address] [place] [address] PCP - General 01/30/22 documented as of this encounter
--- OUTSIDE RECORDS SUMMARY | 2024-07-13 16:53 | XMS_ITS | Encounter Summary ---
Author Organization [facility] [place], Address [address] [place] [address] Phone Care Team Providers Care Communications Professor Name Role Phone Nerissa Sparks CNP Primary Care Provider [phone] Encounter Details Date Type Department Care Team (Late st Contact Info) Description 04/08/2022 Documentation Only [facility] [place], [address] [place] [address] Yvonne Millard [address] [place] [address] Social History Tobacco Use Types Packs/Day Years [...] on filedocumented in this encounter Care Teams Communications Professor Relationship Specialty Start Date End Date Nerissa Sparks CNP [address] [place] [address] PCP - General 07/06/24 documented as of this encounter
--- OUTSIDE RECORDS SUMMARY | 2024-07-13 16:53 | XMS_ITS | Encounter Summary ---
Author Organization [facility] [place], Address [address] [place] [address] Phone Care Team Providers Care Third Grade Teacher Name Role Phone Nerissa Sparks CNP Primary Care Provider [phone] Reason for Visit * Reason Comments Med Refill Encounter Details Date Type Department Care Team (Late st Contact Info) Description 07/06/2023 Refill [facility] [address] [place] [address] Harman Paul MD [address] [place] [address] Social History Tobacco Use Types Packs/Day Years [...] on filedocumented in this encounter Care Teams Third Grade Teacher Relationship Specialty Start Date End Date Nerissa Sparks CNP [address] [place] [address] [phone] PCP - General 07/06/24 documented as of this encounter
--- OUTSIDE RECORDS SUMMARY | 2024-07-13 16:53 | XMS_ITS | Encounter Summary ---
Author Organization [facility] [place], Address [address] [place] [address] Phone Care Team Providers Care Police Patrol Officer Name Role Phone Nerissa Sparks CNP Primary Care Provider [phone] Reason for Visit * Reason Comments Med Refill Encounter Details Date Type Department Care Team (Late st Contact Info) Description 11/11/2020 Refill [facility] [address] [place] [address] Jaison Tineo PA Social History Tobacco Use [...] on filedocumented in this encounter Care Teams Police Patrol Officer Relationship Specialty Start Date End Date Nerissa Sparks CNP [address] [place] [address] [phone] PCP - General 07/06/24 documented as of this encounter
--- OUTSIDE RECORDS SUMMARY | 2024-07-13 16:53 | XMS_ITS | Encounter Summary ---
Author Organization [facility] [place], Address [address] [place] [address] Phone Care Team Providers Care Promotions Team Leader Name Role Phone Nerissa Sparks CNP Primary Care Provider [phone] Reason for Visit * Reason Comments Med Refill Encounter Details Date Type Department Care Team (Late st Contact Info) Description 06/15/2024 Refill [facility] [address] [place] [address] Harman Paul MD [address] [place] [address] Social History Tobacco Use Types Packs/Day Years [...] on filedocumented in this encounter Care Teams Promotions Team Leader Relationship Specialty Start Date End Date Nerissa Sparks CNP [address] [place], [place] [phone] PCP - General 07/06/24 documented as of this encounter
--- OUTSIDE RECORDS SUMMARY | 2024-07-13 16:53 | XMS_ITS | Encounter Summary ---
Author Organization [facility] [place], Address [address] [place] [address] Phone Care Team Providers Care Oliving Machine Operator Name Role Phone Nerissa Sparks CNP Primary Care Provider [phone] Encounter Details Date Type Department Care Team (Late st Contact Info) Description 05/31/2022 Documentation Only [facility] [place], [address] [place] [place] [address] Yvonne Millard [address] [place] [address] Social History Tobacco Use Types Packs/Day Years [...] on filedocumented in this encounter Care Teams Oliving Machine Operator Relationship Specialty Start Date End Date Nerissa Sparks CNP [address] [place] [address] PCP - General 07/06/24 documented as of this encounter
--- OUTSIDE RECORDS SUMMARY | 2024-07-13 16:53 | XMS_ITS | Encounter Summary ---
Author Organization [facility] [place], Address [address] [place] [address] Phone Care Team Providers Care Civil Engineering Project Manager Name Role Phone Nerissa Sparks CNP Primary Care Provider [phone] Encounter Details Date Type Department Care Team (Late st Contact Info) Description 11/21/2022 Documentation Only [facility] [place], [address] [place] [address] Dev Ramirez DO [address] [place] [address] Social History Tobacco Use Types Packs/Day Years [...] on filedocumented in this encounter Care Teams Civil Engineering Project Manager Relationship Specialty Start Date End Date Nerissa Sparks CNP [address] [place], [place] [phone] PCP - General 07/06/24 documented as of this encounter
--- OUTSIDE RECORDS SUMMARY | 2024-07-13 16:53 | XMS_ITS | Encounter Summary ---
Author Organization [facility] [place], Address [address] [place] [address] Phone Care Team Providers Care Pelota Maker Name Role Phone Nerissa Sparks CNP Primary Care Provider Reason for Visit * Reason Comments Med Refill Encounter Details Date Type Department Care Team (Late st Contact Info) Description 02/23/2023 Refill [facility] [address] [place] [address] Nathaniel Haley MD [address] [place] [address] Social History Tobacco Use Types Packs/Day Years [...] on filedocumented in this encounter Care Teams Pelota Maker Relationship Specialty Start Date End Date Nerissa Sparks CNP [address] [place] [address] [phone] PCP - General 07/06/24 documented as of this encounter
--- OUTSIDE RECORDS SUMMARY | 2024-07-13 16:53 | XMS_ITS | Encounter Summary ---
Author Organization [facility] [place], Address [address] [place] [address] Phone Care Team Providers Care Addictions Counselor Name Role Phone Nerissa Sparks CNP Primary Care Provider [phone] Reason for Visit * Reason Comments Med Refill Encounter Details Date Type Department Care Team (Late st Contact Info) Description 09/29/2023 Refill [facility] [address] [facility] [place] [address] Jaison Tineo PA Social History Tobacco Use [...] on filedocumented in this encounter Care Teams Addictions Counselor Relationship Specialty Start Date End Date Nerissa Sparks CNP [address] [place] [address] PCP - General 07/06/24 documented as of this encounter
--- OUTSIDE RECORDS SUMMARY | 2024-07-13 16:53 | XMS_ITS | Clinical Summary ---
Author Organization [address] Address [address] [place] [address] Phone Care Team Providers Care Paint Prep Technician Name Role Phone Gordon Valdivia MD Primary Care Provider [phone] Surgical History Surgery Date Site/Laterality Comments TONSILLECTOMY PROCEDURE:TONSILLECTOMY Medical History Medical History Date Comments Anemia DX:Anemia GERD (gastroesophageal reflux disease) DX:GERD (gastroesophageal reflux disease) Hypertension DX:Hypertension Chronic kidney disease DX:Chroni c kidney disease Proteinuria DX:Proteinuria Legionella pneumonia (CMS/HC C V24, CMS/HCC V28) DX:Legionella pneumonia (HCC ) 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) DX:Hemodialysis AV fistula a neurysm ([facility]) Obesity DX:Obesity Dyslipidemia DX:Dyslipidemia Family History Medical [...] patient's age to complete this topic Insurance [facility] Care Teams Paint Prep Technician Relationship Specialty Start Date End Date Gordon Valdivia MD [address] [place] [address] [place] [address] PCP - General 01/30/22
--- OUTSIDE RECORDS SUMMARY | 2024-07-13 16:53 | XMS_ITS | Encounter Summary ---
Author Organization [facility] [place], Address PO [facility] [address] [place] [address] Phone Care Team Providers Care Educational Technologist Name Role Phone Nerissa Sparks CNP Primary Care Provider [phone] Encounter Details Date Type Department Care Team (Late st Contact Info) Description 05/29/2022 Documentation Only [facility] [place], [address] [facility] [address] [address] Gordon Valdivia MD [address] [facility] [place] [address] Social History Tobacco Use Types Packs/Day Years [...] on filedocumented in this encounter Care Teams Educational Technologist Relationship Specialty Start Date End Date Nerissa Sparks CNP [address] [place] [address] PCP - General 07/06/24 documented as of this encounter
--- OUTSIDE RECORDS SUMMARY | 2024-07-13 16:53 | XMS_ITS | Encounter Summary ---
Author Organization [facility] [place], Address [address] [place] [address] Phone Care Team Providers Care Airplane Coverer Name Role Phone Nerissa Sparks CNP Primary Care Provider [phone] Encounter Details Date Type Department Care Team (Late st Contact Info) Description 03/25/2023 Documentation Only [facility] [place], [address] [place] [address] Dev Ramirez DO [address] [place] [address] Social History Tobacco Use Types Packs/Day Years [...] on filedocumented in this encounter Care Teams Airplane Coverer Relationship Specialty Start Date End Date Nerissa Sparks CNP [address] [place], [place] [phone] PCP - General 07/06/24 documented as of this encounter
--- OUTSIDE RECORDS SUMMARY | 2024-07-13 16:53 | XMS_ITS | Encounter Summary ---
Author Organization [facility] [place], Address [address] [place] [address] Phone Care Team Providers Care Caving Guide Name Role Phone Nerissa Sparks CNP Primary Care Provider [phone] Reason for Visit * Reason Comments Med Refill Encounter Details Date Type Department Care Team (Late st Contact Info) Description 06/22/2023 Refill [facility] [address] [place] [address] Nathaniel Haley MD [address] [place] [address] Social History Tobacco Use Types Packs/Day Years [...] on filedocumented in this encounter Care Teams Caving Guide Relationship Specialty Start Date End Date Nerissa Sparks CNP [address] [place] [address] [phone] PCP - General 07/06/24 documented as of this encounter
--- OUTSIDE RECORDS SUMMARY | 2024-07-13 16:53 | XMS_ITS | Encounter Summary ---
Author Organization [facility] [place], Address PO [facility] [address] [place] [address] Phone Care Team Providers Care Cement Crusher Operator Name Role Phone Nerissa Sparks CNP Primary Care Provider [phone] Encounter Details Date Type Department Care Team (Late st Contact Info) Description 12/31/2021 Documentation Only [facility] [place], [address] [facility] [place] [address] Gordon Valdivia MD [address] [facility] [place] [address] Social History Tobacco Use Types Packs/Day Years [...] on filedocumented in this encounter Care Teams Cement Crusher Operator Relationship Specialty Start Date End Date Nerissa Sparks CNP [address] [place], [place] [phone] PCP - General 07/06/24 documented as of this encounter
--- OUTSIDE RECORDS SUMMARY | 2024-07-13 16:53 | XMS_ITS | Encounter Summary ---
Author Organization [facility] [place], Address [address] [address] Phone Care Team Providers Care Sales Ambassador Name Role Phone Nerissa Sparks CNP Primary Care Provider [phone] Reason for Visit * Reason Comments Med Change Request Encounter Details Date Type Department Care Team (Late st Contact Info) Description 03/01/2022 Refill [facility] [place] [address] [place] [address] Gordon Valdivia MD [address] [place] [address] Social History Tobacco Use Types Packs/Day Years [...] filedocumented in this encounter Care Teams Sales Ambassador Relationship Specialty Start Date End Date Nerissa Sparks CNP [address] [place] [address] PCP - General 07/06/24 documented as of this encounter
--- OUTSIDE RECORDS SUMMARY | 2024-07-13 16:53 | XMS_ITS ---
Author Name [facility] Organization Unknown Problems Problem Status Onset Date Problem Type Date of Resoluti on Source Chronic kidney disease, stage IV (severe) ([facility]) active EncounterDiagnosisAct [facility] T Encounters Encounter Type Encounter Reason Primary Diagnosis Location Date Ambulatory Chronic kidney disease, stage 4 (severe) [facility] 01/23/2022 Ambulatory Chronic kidney disease, stage 4 (severe) [facility] 12/24/2021 Ambulatory Chronic kidney disease, stage 3 unspecified [facility] 04/06/2021 Care Team Organization Name Specialty Phone Email Start Date End Da te [facility] PCP,No Primary Care 01/23/2022 [facility] NO PCP Primary Care 04/06/2021 04/06/2021
--- OUTSIDE RECORDS SUMMARY | 2024-07-13 16:53 | XMS_ITS | Encounter Summary ---
Author Organization [facility] [place], Address PO [facility] [address] [place] [address] Phone Care Team Providers Care Compliance Professional Name Role Phone Nerissa Sparks CNP Primary Care Provider [phone] Encounter Details Date Type Department Care Team (Late st Contact Info) Description 12/31/2021 Documentation Only [facility] [place], [address] [facility] [place] [address] Gordon Valdivia MD [address] [facility] [address] [place] [address] Social History Tobacco Use Types Packs/Day Years [...] on filedocumented in this encounter Care Teams Compliance Professional Relationship Specialty Start Date End Date Nerissa Sparks CNP [address] [place], [place] [phone] PCP - General 07/06/24 documented as of this encounter
--- OUTSIDE RECORDS SUMMARY | 2024-07-13 16:53 | XMS_ITS | Clinical Summary ---
Author Organization [facility] Address [address] [place] [address] Care Team Providers Care Financial Foundations Associate Name Role Phone Pcp, No Primary Care [...] patient's age to complete this topic Insurance [facility] Care Teams Financial Foundations Associate Relationship Specialty Start Date End Date Pcp, No [address] [place] [address] PCP - General 03/26/21
--- OUTSIDE RECORDS SUMMARY | 2024-07-13 16:53 | XMS_ITS | Encounter Summary ---
Author Organization [facility] [place], Address [address] [place] [address] Phone Care Team Providers Care Major Assembly Lineman Name Role Phone Nerissa Sparks CNP Primary Care Provider [phone] Encounter Details Date Type Department Care Team (Late st Contact Info) Description 01/19/2024 Documentation Only [facility] [place], [address] [place] [address] Hetal Johnston [place] [address] [place] [address] Social History Tobacco Use Types Packs/Day Years [...] on filedocumented in this encounter Care Teams Major Assembly Lineman Relationship Specialty Start Date End Date Nerissa Sparks CNP [address] [place], [place] [phone] PCP - General 07/06/24 documented as of this encounter
--- OUTSIDE RECORDS SUMMARY | 2024-07-13 16:53 | XMS_ITS | Encounter Summary ---
Author Organization [facility] [place], Address [address] [place] [address] Phone Care Team Providers Care Health Technician Name Role Phone Nerissa Sparks CNP Primary Care Provider [phone] Reason for Visit * Reason Comments Med Refill Encounter Details Date Type Department Care Team (Late st Contact Info) Description 02/10/2023 Refill [facility] [address] [place] [address] Nathaniel Haley MD [address] [place] [address] Social History Tobacco Use Types Packs/Day Years [...] on filedocumented in this encounter Care Teams Health Technician Relationship Specialty Start Date End Date Nerissa Sparks CNP [address] [place] [address] [phone] PCP - General 07/06/24 documented as of this encounter
--- OUTSIDE RECORDS SUMMARY | 2024-07-13 16:53 | XMS_ITS | Encounter Summary ---
Author Organization [facility] [place], Address PO [facility] [address] [place] [address] Phone Care Team Providers Care Sheet Metal Shop Foreman Name Role Phone Nerissa Sparks CNP Primary Care Provider [phone] Encounter Details Date Type Department Care Team (Late st Contact Info) Description 12/21/2021 Documentation Only [facility] [place], [address] [facility] [place] [address] Gordon Valdivia MD [address] [facility] [address] Social History Tobacco Use Types Packs/Day Years [...] on filedocumented in this encounter Care Teams Sheet Metal Shop Foreman Relationship Specialty Start Date End Date Nerissa Sparks CNP [address] [place], [place] [phone] PCP - General 07/06/24 documented as of this encounter
--- OUTSIDE RECORDS SUMMARY | 2024-07-13 16:53 | XMS_ITS | Encounter Summary ---
Author Organization [facility] [place], Address [address] [address] Phone Care Team Providers Care Optometrist Assistant Name Role Phone Nerissa Sparks CNP Primary Care Provider [phone] Reason for Visit * Reason Comments Med Refill Encounter Details Date Type Department Care Team (Late st Contact Info) Description 04/03/2022 Refill [facility] [place], [address] [place] [address] Gordon Valdivia MD [address] [place] [address] Social History Tobacco Use Types Packs/Day Years [...] on filedocumented in this encounter Care Teams Optometrist Assistant Relationship Specialty Start Date End Date Nerissa Sparks CNP [address] [place] [address] PCP - General 07/06/24 documented as of this encounter
--- OUTSIDE RECORDS SUMMARY | 2024-07-13 16:53 | XMS_ITS | Encounter Summary ---
Author Organization [facility] [place], Address [address] [address] Phone Care Team Providers Care Freight And Passenger Agent Name Role Phone Nerissa Sparks CNP Primary Care Provider [phone] Reason for Visit * Reason Comments Med Change Request Encounter Details Date Type Department Care Team (Late st Contact Info) Description 05/03/2022 Refill [facility] [place] [address] [place] [address] Gordon Valdivia MD [address] [place] [address] Social History Tobacco Use Types Packs/Day Years [...] on filedocumented in this encounter Care Teams Freight And Passenger Agent Relationship Specialty Start Date End Date Nerissa Sparks CNP [address] [place] [address] PCP - General 07/06/24 documented as of this encounter
--- OUTSIDE RECORDS SUMMARY | 2024-07-13 16:53 | XMS_ITS | Encounter Summary ---
Author Organization [facility] Address [address] [place] [address] Care Team Providers Care Chief Minister Name Role Phone Gordon Valdivia MD Primary Care Provider [phone] Encounter Details Date Type Department Care Team (Late st Contact Info) Description 03/03/[address] [facility] Main Lab [address] [place] [address] Felipe Saha MD [address] [place] [address] Hyperkalemia Social History Tobacco Use [...] LAB CHEMISTRY METHOD 03/03/2024 3:02 PM EST [facility] ([facility]) [facility] Blood Venous blood specimen / Unknown 03/03/2024 2:30 PM EST 03/03/2024 2:31 PM EST us Felipe Saha MD LAB BLOOD ORDERABLES Final R esult FREDRICKAlina FIGUEROA [place] ([facility]) [facility] [address] [place] [address], documented in this encounter Visit Diagnoses Diagnosis Hyperkalemia Hyperpotassemia documented in this encounter Care Teams Chief Minister Relationship Specialty Start Date End Date Gordon Valdivia MD [address] [place] [address] [place] [address] PCP - General 01/30/22 documented as of this encounter
--- OUTSIDE RECORDS SUMMARY | 2024-07-13 16:53 | XMS_ITS | Encounter Summary ---
Author Organization [facility], Address [address] [place] [address] Phone Care Team Providers Care Electrical Engineering Manager Name Role Phone Nerissa Sparks CNP Primary Care Provider [phone] Reason for Visit * Reason Comments Med Refill Encounter Details Date Type Department Care Team (Late st Contact Info) Description 01/26/2023 Refill [facility] [address] [place] [address] Nathaniel Haley MD [address] [place] [address] Social History Tobacco Use Types Packs/Day Years [...] on filedocumented in this encounter Care Teams Electrical Engineering Manager Relationship Specialty Start Date End Date Nerissa Sparks CNP [address] [place] [phone] PCP - General 07/06/24 documented as of this encounter
--- OUTSIDE RECORDS SUMMARY | 2024-07-13 16:53 | XMS_ITS | Encounter Summary ---
Author Organization [facility], Address PO [facility] [address] [place] [address] Phone Care Team Providers Care Door Tender Name Role Phone Nerissa Sparks CNP Primary Care Provider [phone] Encounter Details Date Type Department Care Team (Late st Contact Info) Description 03/18/2022 Documentation Only [facility], [address] [facility] [place] [address] Gordon Valdivia MD [address] [facility] [place] [address] Social History Tobacco Use Types Packs/Day Years [...] filedocumented in this encounter Care Teams Door Tender Relationship Specialty Start Date End Date Nerissa Sparks CNP [address] [place] [address] PCP - General 07/06/24 documented as of this encounter
--- OUTSIDE RECORDS SUMMARY | 2024-07-13 16:53 | XMS_ITS | Encounter Summary ---
Author Organization [facility], Address [address] [place] [address] Phone Care Team Providers Care Stockbroker Name Role Phone Nerissa Sparks CNP Primary Care Provider [phone] Encounter Details Date Type Department Care Team (Late st Contact Info) Description 03/12/2022 Documentation Only [facility], [address] [place] [phone] Jaison Tineo PA Social History Tobacco Use [...] on filedocumented in this encounter Care Teams Stockbroker Relationship Specialty Start Date End Date Nerissa Sparks CNP [address] [place], [place] [phone] PCP - General 07/06/24 documented as of this encounter
--- OUTSIDE RECORDS SUMMARY | 2024-07-13 16:53 | XMS_ITS | Encounter Summary ---
Author Organization [facility] [place], Address [address] [place] [address] Phone Care Team Providers Care Multi Spindle Operator Name Role Phone Nerissa Sparks CNP Primary Care Provider [phone] Reason for Visit * Reason Comments Med Refill Encounter Details Date Type Department Care Team (Late st Contact Info) Description 09/29/2023 Refill [facility] [address] [place] [address] Harman Paul MD [address] [place] [address] Social History Tobacco Use Types Packs/Day Years [...] on filedocumented in this encounter Care Teams Multi Spindle Operator Relationship Specialty Start Date End Date Nerissa Sparks CNP [address] [place] [address] [phone] PCP - General 07/06/24 documented as of this encounter
--- OUTSIDE RECORDS SUMMARY | 2024-07-13 16:53 | XMS_ITS | Encounter Summary ---
Author Organization [facility], Address [address] [place] [address] Phone Care Team Providers Care Obstetrics Gynecology Md Name Role Phone Nerissa Sparks CNP Primary Care Provider [phone] Reason for Visit * Reason Comments Med Refill Encounter Details Date Type Department Care Team (Late st Contact Info) Description 01/21/2023 Refill [facility] [address] [place] [address] Jaison Tineo PA Social History Tobacco Use [...] on filedocumented in this encounter Care Teams Obstetrics Gynecology Md Relationship Specialty Start Date End Date Nerissa Sparks CNP [address] [place] [address] PCP - General 07/06/24 documented as of this encounter
--- OUTSIDE RECORDS SUMMARY | 2024-07-13 16:53 | XMS_ITS | Encounter Summary ---
Author Organization [facility] [place], Address PO [facility] [address] [place] [address] Phone Care Team Providers Care Supervisor Fleshing Name Role Phone Nerissa Sparks CNP Primary Care Provider [phone] Encounter Details Date Type Department Care Team (Late st Contact Info) Description 01/21/2022 Documentation Only [facility] [place], [address] [facility] [place] [address] Gordon Valdivia MD [address] [facility] [place] [address] Social History Tobacco Use Types Packs/Day Years [...] on filedocumented in this encounter Care Teams Supervisor Fleshing Relationship Specialty Start Date End Date Nerissa Sparks CNP [address] [place] [phone] PCP - General 07/06/24 documented as of this encounter
--- OUTSIDE RECORDS SUMMARY | 2024-07-13 16:53 | XMS_ITS | Encounter Summary ---
Author Organization [facility] [place], Address [address] [place] [address] Phone Care Team Providers Care Underground Roof Bolter Name Role Phone Nerissa Sparks CNP Primary Care Provider Reason for Visit * Reason Comments Med Refill Encounter Details Date Type Department Care Team (Late st Contact Info) Description 05/06/2021 Refill [facility] [address] [place] [address] Jaison Tineo PA Kidney replaced by transplant; [...] therapy documented in this encounter Care Teams Underground Roof Bolter Relationship Specialty Start Date End Date Nerissa Sparks CNP [address] [place] [address] PCP - General 07/06/24 documented as of this encounter
--- OUTSIDE RECORDS SUMMARY | 2024-07-13 16:53 | XMS_ITS | Encounter Summary ---
Author Organization [facility], Address [address] [place] [address] Phone Care Team Providers Care Customer Services Manager Name Role Phone Nerissa Sparks CNP Primary Care Provider [phone] Encounter Details Date Type Department Care Team (Late st Contact Info) Description 01/24/2022 Documentation Only [facility], [address] [place] [address] Yvonne Millard [address] [place] [address] Social History Tobacco Use Types Packs/Day Years [...] on filedocumented in this encounter Care Teams Customer Services Manager Relationship Specialty Start Date End Date Nerissa Sparks CNP [address] [place] [address] PCP - General 07/06/24 documented as of this encounter
--- OUTSIDE RECORDS SUMMARY | 2024-07-13 16:53 | XMS_ITS | Encounter Summary ---
Author Organization [facility], Address [address] [place] [address] Phone Care Team Providers Care Personal Injury Law Specialist Name Role Phone Nerissa Sparks CNP Primary Care Provider [phone] Encounter Details Date Type Department Care Team (Late st Contact Info) Description 05/07/2022 Documentation Only [facility], [address] [place] [phone] Jaison Tineo PA Social History Tobacco Use [...] on filedocumented in this encounter Care Teams Personal Injury Law Specialist Relationship Specialty Start Date End Date Nerissa Sparks CNP [address] [place], [place] [phone] PCP - General 07/06/24 documented as of this encounter
--- OUTSIDE RECORDS SUMMARY | 2024-07-13 16:53 | XMS_ITS | Encounter Summary ---
Author Organization [facility] [place], Address [address] [place] [address] Phone Care Team Providers Care Horticultural Specialty Grower Field Name Role Phone Nerissa Sparks CNP Primary Care Provider [phone] Reason for Visit * Reason Comments Med Refill Encounter Details Date Type Department Care Team (Late st Contact Info) Description 01/22/2024 Refill [facility] [place], [address] [place] [phone] Dev Ramirez, [address] [place] [address] Social History Tobacco Use Types Packs/Day Years [...] on filedocumented in this encounter Care Teams Horticultural Specialty Grower Field Relationship Specialty Start Date End Date Nerissa Sparks CNP [address] [place], [place] [phone] PCP - General 07/06/24 documented as of this encounter
--- OUTSIDE RECORDS SUMMARY | 2024-07-13 16:53 | XMS_ITS | Encounter Summary ---
Author Organization [facility], Address [address] [place] [address] Phone Care Team Providers Care Hand Almond Blancher Name Role Phone Nerissa Sparks CNP Primary Care Provider [phone] Reason for Visit * Reason Comments Med Refill Encounter Details Date Type Department Care Team (Late st Contact Info) Description 03/15/2023 Refill [facility] [address] [place] [phone] Harman Paul MD [address] [place] [address] Social History Tobacco Use Types Packs/Day Years [...] filedocumented in this encounter Care Teams Hand Almond Blancher Relationship Specialty Start Date End Date Nerissa Sparks CNP [address] [place] [phone] PCP - General 07/06/24 documented as of this encounter
--- OUTSIDE RECORDS SUMMARY | 2024-07-13 16:53 | XMS_ITS | Encounter Summary ---
Author Organization [facility], Address [address] [place] [address] Phone Care Team Providers Care Personal Coach Name Role Phone Nerissa Sparks CNP Primary Care Provider [phone] Reason for Visit * Reason Comments Med Refill Encounter Details Date Type Department Care Team (Late st Contact Info) Description 12/28/2022 Refill [facility] [address] [facility] [place] [address] Jaison Tineo PA Social History Tobacco Use [...] filedocumented in this encounter Care Teams Personal Coach Relationship Specialty Start Date End Date Nerissa Sparks CNP [address] [place] [phone] PCP - General 07/06/24 documented as of this encounter
--- OUTSIDE RECORDS SUMMARY | 2024-07-13 16:53 | XMS_ITS | Encounter Summary ---
Author Organization [facility] [place], Address [address] [place] [address] Phone Care Team Providers Care Underwear Welter Name Role Phone Nerissa Sparks CNP Primary Care Provider [phone] Encounter Details Date Type Department Care Team (Late st Contact Info) Description 08/31/2021 Documentation Only [facility] [place], [address] [place] [address] Jarett Montenegro [place] [address] [place] [phone] Social History Tobacco Use Types Packs/Day Years [...] on filedocumented in this encounter Care Teams Underwear Welter Relationship Specialty Start Date End Date Nerissa Sparks CNP [address] [place] [phone] PCP - General 07/06/24 documented as of this encounter
--- OUTSIDE RECORDS SUMMARY | 2024-07-13 16:53 | XMS_ITS | Encounter Summary ---
Author Organization [facility], Address [address] [address] Phone Care Team Providers Care Curb And Gutter Laborer Name Role Phone Nerissa Sparks CNP Primary Care Provider [phone] Reason for Visit * Reason Comments Med Refill Encounter Details Date Type Department Care Team (Late st Contact Info) Description 09/30/2019 Refill [facility] [address] [place] [address] Gordon Valdivia MD [address] [place] [address] Social History Tobacco Use Types Packs/Day Years [...] on filedocumented in this encounter Care Teams Curb And Gutter Laborer Relationship Specialty Start Date End Date Nerissa Sparks CNP [address] [place], [place] [phone] PCP - General 07/06/24 documented as of this encounter
--- OUTSIDE RECORDS SUMMARY | 2024-07-13 16:53 | XMS_ITS | Encounter Summary ---
Author Organization [facility] [place], Address PO [facility] [address] [place] [address] Phone Care Team Providers Care Uc Architect Name Role Phone Nerissa Sparks CNP Primary Care Provider Encounter Details Date Type Department Care Team (Late st Contact Info) Description 11/16/2021 Documentation Only [facility] [place], [address] [facility] [place] [address] Gordon Valdivia MD [address] [facility] [place] [address] Social History Tobacco Use Types Packs/Day Years [...] on filedocumented in this encounter Care Teams Uc Architect Relationship Specialty Start Date End Date Nerissa Sparks CNP [address] [place] [phone] PCP - General 07/06/24 documented as of this encounter
--- OUTSIDE RECORDS SUMMARY | 2024-07-13 16:53 | XMS_ITS | Encounter Summary ---
Author Organization [facility] [place], Address [address] [place] [address] Phone Care Team Providers Care Fish Warden Name Role Phone Nerissa Sparks CNP Primary Care Provider [phone] Reason for Visit * Reason Comments Med Refill Encounter Details Date Type Department Care Team (Late st Contact Info) Description 04/16/2020 Refill [facility] [address] [place] [phone] Madi Bradley MD [address] [place] [address] Social History Tobacco Use Types Packs/Day Years [...] on filedocumented in this encounter Care Teams Fish Warden Relationship Specialty Start Date End Date Nerissa Sparks CNP [address] [place] [phone] PCP - General 07/06/24 documented as of this encounter
--- OUTSIDE RECORDS SUMMARY | 2024-07-13 16:53 | XMS_ITS | Encounter Summary ---
Author Organization [facility], Address [address] [place] [address] Phone Care Team Providers Care Vp Outcomes Name Role Phone Nerissa Sparks CNP Primary Care Provider [phone] Encounter Details Date Type Department Care Team (Late st Contact Info) Description 04/19/2022 Documentation Only [facility], [address] [place] [phone] Jaison Tineo PA Social History Tobacco Use [...] on filedocumented in this encounter Care Teams Vp Outcomes Relationship Specialty Start Date End Date Nerissa Sparks CNP [address] [place], [place] [phone] PCP - General 07/06/24 documented as of this encounter
--- OUTSIDE RECORDS SUMMARY | 2024-07-13 16:53 | XMS_ITS | Clinical Summary ---
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 Iron deficiency anemia 01/28/2022 Anemia [...] Treatment [facility], [address] [place] [phone] Felipe Saha MD End stage renal disease; Dependence on renal dialysis 07/07/2024 Orders Only [facility] [address] [address] Nathaniel Haley MD 07/06/2024 9:00 AM EDT Office Visit [facility] [address] [place] [address] Gordon Valdivia MD Kidney replaced by transplant (Primary Dx); End stage renal disease (HCC) 06/30/2024 Treatment [facility], [address] [place] [address] Rosanna Mcguire FNP-C End stage renal disease; Dependence on renal dialysis 06/30/2024 Orders Only [facility] [address] [address] Nathaniel Haley MD 06/25/2024 Treatment [facility], [address] [place] [address] Rosanna Mcguire FNP-Mulu End stage renal disease; Dependence on renal dialysis 06/23/2024 Orders Only [facility] [address] [address] Nathaniel Haley MD 06/16/2024 Orders Only [facility] [address] [address] Nathaniel Haley MD 06/16/2024 Treatment [facility], [address] [place] [id number] Melanie Christie APRN End stage renal disease; Dependence on renal dialysis 06/15/2024 Refill [facility] [address] [address] Harman Paul MD 06/09/2024 Orders Only [facility] [address] [address] Nathaniel Haley MD 06/09/2024 Treatment [facility] [address] [place] [address] Rosanna Mcguire, TYPEWRITER MECHANIC-C End stage renal disease; Dependence on renal dialysis 06/03/2024 Telephone [facility], [address] [place] [address] Keysha Toussaint [place] 06/02/2024 Orders Only [facility] [address] [address] Nathaniel Haley MD 06/02/2024 Treatment [facility] [address] [place] [address] Rosanna Mcguire FNP-C End stage renal disease; Dependence on renal dialysis 05/28/2024 Treatment [facility], [address] [place] [address] Felipe Saha MD End stage renal disease; Dependence on renal dialysis 05/26/2024 Orders Only [facility] [address] [address] Nathaniel Haley MD 05/19/2024 Orders Only [facility] [address] [address] Nathaniel Haley MD 05/19/2024 Treatment [facility] [address] [place] [address] Rosanna Mcguire FNP-C End stage renal disease; Dependence on renal dialysis 05/15/2024 Refill [facility], [address] [place] [address] Dev Ramirez DO 05/14/2024 Treatment [facility], [address] [place] [address] Melanie Christie APRN End stage renal disease; Dependence on renal dialysis 05/12/2024 Orders Only [facility] [address] [address] Nathaniel Haley MD 05/12/2024 Treatment [facility], [address] [place] [address] Rosanna Mcguire FNP-Mulu End stage renal disease; Dependence on renal dialysis 05/07/2024 Treatment [facility], [address] [place] [address] Felipe Saha MD End stage renal disease; Dependence on renal dialysis 05/05/2024 Orders Only [facility] [address] [address] Nathaniel Haley MD 04/28/2024 Orders Only [facility] [address] [address] Nathaniel Haley MD 04/21/2024 Orders Only [facility] [address] [address] Nathaniel Haley MD from Last 3 Months [...] included. Hemoglobin 12.2(L) 14.0 - 18.0 g/dL [facility] Hemoglobin x 3 36.6(L) 42.0 - 54.0 % [facility] 07/07/2024 07/08/2024 9:2 8 AM EDT Narrative [facility] - 07/08/2024 Unless otherwise specified, test(s) performed at: [facility], [address] [place] [id number] HOSPICE PHYSICIAN: Brain Alvarado M.D. For any questions, please call customer service at FREQUENCY:OTHER Resulting Agency Comment Specimen source: Blood us Nathaniel Haley MD LAB BLOOD ORDERABLES Final Re sult [facility] See order comments or contact performing lab Unknown, [place] * [facility] Chemistry (07/07/2024) Only the most recent of15 resultswithin the time period is included. Potassium 4.7 3.5 - 5.1 mEq/L [facility] 07/07/2024 07/08/2024 9:4 0 AM EDT Narrative [facility] 07/08/2024 Unless otherwise specified, test(s) performed at: [facility], [address] [place] [id number] HOSPICE PHYSICIAN: Brain Alvarado M.D. For any questions, please call customer service at FREQUENCY:OTHER Resulting Agency Comment Specimen source: Serum Nathaniel Haley MD LAB BLOOD ORDERABLES Final Re sult Performing Organization Address [facility] de Phone Number [facility] See order comments or contact performing lab Unknown, [place] * [facility] (06/30/2024) Only the most recent of3 resultswithin the time period is included. % Urea Reduction 68 65 - 80 % [facility] 06/30/2024 07/03/2024 12: 53 PM EDT Narrative Resulting Agency Comment Specimen source: Plasma Nathaniel Haley MD LAB BLOOD ORDERABLES Final Re sult Performing Organization Address [facility] de Phone Number [facility] See order comments or contact performing lab Unknown, [place] * (ABNORMAL) POST CHEMISTRY (06/30/2024) Only the most recent of3 resultswithin the time period is included. BUN Post Dialysis 26(H) 6 - 19 mg/dL [facility] 06/30/2024 07/03/2024 12: 53 PM EDT Narrative [facility] - 07/03/2024 Unless otherwise specified, test(s) performed at: [facility], [address] [place] [id number] HOSPICE PHYSICIAN: Brain Alvarado M.D. For any questions, please call customer service at FREQUENCY:MONTHLY Resulting Agency Comment Specimen source: Plasma Nathaniel Haley MD LAB BLOOD ORDERABLES Final Re sult Performing Organization Address [facility] de Phone Number [facility] See order comments or contact performing lab Unknown, [place] * IMMUNO CHEMISTRY (06/30/2024) Only the most recent of3 resultswithin the time period is included. Hep B Surface Ag Negative Negative [facility] 06/30/2024 07/01/2024 11: 02 AM EDT Narrative Resulting Agency Comment Specimen source: Serum Nathaniel Haley MD LAB BLOOD ORDERABLES Final Re sult [facility] See order comments or contact performing lab Unknown, [place] * [facility] Results (06/30/2024) Only the most recent of3 resultswithin the time period is included. nPCR_HD 1.40 [facility] PCR 81.90 [facility] spKt/V (Daugirdas II) 1.37 [facility] eKt/V ([place]) 1.19 [facility] spKt/V Gotch 1.47 [facility] eKdrt/V 1.28 [facility] eNPCR 1.27 [facility] eKt/V Gotch 1.28 [facility] WSTDKT/V 2.3 [facility] 06/30/2024 06/30/2024 [facility] Ordering Provider LAB BLOOD ORDERABLES Final Result Performing Organization Address [facility]/ZIP Co de Phone Number [facility] Contact Performing lab Unknown, [place] * SPECIAL CHEMISTRY (05/26/2024) Pathologist [facility] Creatine Kinase (CK/CPK) 172 30 - 223 U/L [facility] 05/26/2024 05/27/2024 9:4 4 AM EDT Narrative [facility] - 05/27/2024 Unless otherwise specified, test(s) performed at: [facility], [address] [place] [address] HOSPICE PHYSICIAN: Brain Alvarado M.D. For any questions, please call customer service at FREQUENCY:MONTHLY Resulting Agency Comment Specimen source: Serum Nathaniel Haley MD LAB BLOOD BANK TEST ORDERABLE S Final Result Performing Organization Address City/[facility]/ZIP Co de Phone Number [facility] See order comments or contact performing lab Unknown, [place] from Last 3 Months Insurance [facility] Care Teams Rail Transit Operator Relationship Specialty Start Date End Date Nerissa Sparks CNP [address] [place] [address] PCP - General 07/06/24
--- OUTSIDE RECORDS SUMMARY | 2024-07-13 16:53 | XMS_ITS | Encounter Summary ---
Author Organization [facility], Address [address] [place] [address] Phone Care Team Providers Care Adult Education Teacher Name Role Phone Nerissa Sparks CNP Primary Care Provider [phone] Reason for Visit * Reason Comments Med Refill Encounter Details Date Type Department Care Team (Late st Contact Info) Description 11/15/2022 Refill [facility] [address] [place] [phone] Jaison Tineo PA Social History Tobacco Use [...] on filedocumented in this encounter Care Teams Adult Education Teacher Relationship Specialty Start Date End Date Nerissa Sparks CNP [address] [place] [id number] PCP - General 07/06/24 documented as of this encounter
--- OUTSIDE RECORDS SUMMARY | 2024-07-13 16:53 | XMS_ITS | Encounter Summary ---
Author Organization [facility], Address [address] [place] [address] Phone Care Team Providers Care Receiving Lead Name Role Phone Nerissa Sparks SYLVIA Primary Care Provider [phone] Encounter Details Date Type Department Care Team (Late st Contact Info) Description 07/07/2024 Orders Only [facility] [address] [place] [address] Nathaniel Haley MD [address] [place] [phone] Social History Tobacco Use Types Packs/Day Years [...] 07/08/2024 Unless otherwise specified, test(s) performed at: [facility], [address] [place] [id number] TEXTILE SCREEN PRINTER: Brain Alvarado M.D. For any questions, please call customer service at FREQUENCY:OTHER Resulting Agency Comment Specimen source: Serum Nathaniel Haley MD LAB BLOOD ORDERABLES Final Re sult Performing Organization Address [facility] de Phone Number [facility] See order comments or contact performing lab Unknown, [place] * (ABNORMAL) HEMATOLOGY (07/07/2024) Hemoglobin 12.2(L) 14.0 - 18.0 g/dL [facility] Hemoglobin x 3 36.6(L) 42.0 - 54.0 % [facility] 07/07/2024 07/08/2024 9:2 8 AM EDT Narrative [facility] - 07/08/2024 Unless otherwise specified, test(s) performed at: [facility], [address] [place] [id number] TEXTILE SCREEN PRINTER: Brain Alvarado M.D. For any questions, please call customer service at FREQUENCY:OTHER Resulting Agency Comment Specimen source: Blood Nathaniel Haley MD LAB BLOOD ORDERABLES Final Re sult Performing Organization Address [facility] de Phone Number [facility] See order comments or contact performing lab Unknown, [place] documented in this encounter Visit Diagnoses Not on filedocumented in this encounter Care Teams Receiving Lead Relationship Specialty Start Date End Date Nerissa Sparks CNP [address] [place] [address] PCP - General 07/06/24 documented as of this encounter
== END 2024-07-13 17:05 ==
LOC: HO.HMCFM 16:51
PROVIDERS: PCP Nurse Practitioner Family; Visit Provider Nurse Practitioner Family
DX: N05.1 Unspecified nephritic syndrome with focal and segmental glomerular lesions (principal); E78.5 Hyperlipidemia, unspecified; E55.9 Vitamin D deficiency, unspecified; R79.89 Other specified abnormal findings of blood chemistry; D64.9 Anemia, unspecified